=== PATIENT | male | born 1955 | race American Indian/Alaskan Native ===

== ENCOUNTER 2018-12-07 11:15 | Inpatient (IN) | payer MEDICARE ==
[2018-12-07 12:17] LABS: Basophils % (Auto) 0.4 % (0.0-1.8); Eosinophils % (Auto) 0.6 % (0.0-4.3); Hematocrit 43.3 % (35.5-45.6); Hemoglobin 14.2 gm/dl (11.8-15.2); Lymphocytes % (Auto) 13.2 % (13.4-35.0); Mean Corpuscular HGB Conc 33 % (32-34); Mean Corpuscular Volume 82 fl (84-94); Monocytes # (Auto) 0.5 K/mm3 (0.0-0.8); Monocytes % (Auto) 6.3 % (0.0-7.3); Platelet Count 262 K/mm3 (140-440); Red Blood Count 5.26 M/mm3 (3.65-5.03); Red Cell Distribution Width 14.3 % (13.2-15.2)
[2018-12-07 12:21] LABS: INR 0.87 (0.87-1.13)
[2018-12-07 12:22] LABS: Partial Thromboplastin Time 27.5 Sec. (24.2-36.6)
[2018-12-07 12:23] LABS: Calcium 6.5 mg/dL (8.4-10.2)
[2018-12-07] MEDS ORDERED: TYLENOL PO PRN (13:06)
[2018-12-07] MEDS ORDERED: PROVENTIL IH PRN (13:06)
[2018-12-07] MEDS ORDERED: ZOFRAN IV PRN (13:06)
[2018-12-07] MEDS ORDERED: SODIUM CHLORIDE FLUSH SYRINGE 10 ML IV PRN (13:06)
[2018-12-07] MEDS ORDERED: D50W (25GM) Syringe IV PRN (13:09)
--- NOTE | 2018-12-07 13:11 | History and Physical Report ---
History of Present Illness Chief complaint: High blood sugar History of present illness: 63 YO Male with ESRD on Peritoneal Dialysis, HTN, HLD, Dementia, Nicotine Dependence, and suspected Peritonitis admitted directly at the request of Dr Wyman. Pt was found to have serum glucose above 800 preoperatively. Pt vascular procedure was cancelled. Pt admitted to [facility]. Pt seen and evaluated upon arrival to his room. Pt is resting comfortably. Pt denies fever, chills, CP, Palpitations, NVD, Trauma, or recent ill contacts. Pt acknowledges abdominal pain in the area of his PD catheter. Pt found to have Hypergyycamia, ESRD, and Peritonitis. Pt admitted to [facility]. Surgery team consulted regarding peritonitis, Nephrology team consulted regarding ESRD and dialysis s/p placement of permacath by vascular service. No reported nursing events. Past History Past Medical History: diabetes, ESRD, hypertension, hyperlipidemia, other (Dementia) Past Surgical History: Other (Peritoneal dialysis catheter placement) Social history: , smoking Family history: diabetes, hypertension Medications and Allergies Allergies Allergy/AdvReac Type Severity Reaction Status Date / Time No Known Allergies Allergy Verified 12/07/18 12:08 Home Medications Medication Instructions Recorded Confirmed Last Taken Type AtorvaSTATin 40 mg PO DAILY 12/07/18 12/07/18 12/06/18 History 1 tab Calcium Carbonate [Tums] 1,000 mg PO ONCE 12/07/18 12/07/18 12/06/18 History 1 tab Carvedilol 12.5 mg PO BID 12/07/18 12/07/18 12/06/18 History 1 tab Furosemide [Lasix] 80 mg PO DAILY 12/07/18 12/07/18 12/06/18 History 1 tab Losartan [Cozaar] 100 mg PO QDAY 12/07/18 12/07/18 12/06/18 History 1 tab Minoxidil [Loniten] 10 mg PO BID 12/07/18 12/07/18 12/06/18 History 1 tab Ondansetron [Zofran TAB] 4 mg PO Q8HR PRN 12/07/18 12/07/18 12/06/18 History 1 tab Spironolactone [Aldactone] 50 mg PO QDAY 12/07/18 12/07/18 12/06/18 History 1 tab amLODIPine 10 mg PO DAILY 12/07/18 12/07/18 12/06/18 History 1 tab glipiZIDE [Glipizide] 10 mg PO BID 12/07/18 12/07/18 12/06/18 History 1 tab hydrALAZINE [Apresoline TAB] 100 mg PO TID 12/07/18 12/07/18 12/06/18 History 1 tab Active Meds: Active Medications Acetaminophen (Tylenol) 650 mg PO Q4H PRN PRN Reason: Pain MILD(1-3)/Fever >100.5/HOLLY Albuterol (Proventil) 2.5 mg IH Q4HRT PRN PRN Reason: Shortness Of Breath Dextrose (D50w (25gm) Syringe) 50 ml IV PRN PRN PRN Reason: Hypoglycemia Insulin Human Isoph/Insulin Regular (Humulin 70/30) 15 unit SUB-Q ONCE ONE Stop: 12/07/18 13:31 Insulin Human Lispro (Humalog) 0 unit SUB-Q Q6HR BRE; Protocol Miscellaneous Medication (Amlodipine) 10 mg PO DAILY [facility] Miscellaneous Medication (Atorvastatin) 40 mg PO DAILY [facility] Miscellaneous Medication (Carvedilol) 12.5 mg PO BID [facility] Ondansetron HCl (Zofran) 4 mg IV Q8H PRN PRN Reason: Nausea And Vomiting Sodium Chloride (Sodium Chloride Flush Syringe 10 Ml) 10 ml IV BID BRE Sodium Chloride (Sodium Chloride Flush Syringe 10 Ml) 10 ml IV PRN PRN PRN Reason: LINE FLUSH Review of Systems Constitutional: no weight loss, no weight gain, no chills, no sweats Ears, nose, mouth and throat: no ear pain, no tinnitis, no nose pain, no nasal discharge Cardiovascular: no chest pain, no palpitations, no syncope, no shortness of breath, no paroxysmal nocturnal dyspnea Respiratory: no cough, no excessive sputum, no shortness of breath, no congestion Gastrointestinal: abdominal pain, no nausea, no diarrhea, no change in bowel habits, no coffee ground emesis Genitourinary Male: no dysuria, no flank pain, no urinary frequency, no nocturia Rectal: no pain, no incontinence, no bleeding Musculoskeletal: no neck stiffness, no neck pain, no shooting arm pain, no arm numbness/tingling Integumentary: no rash, no redness, no wounds, no boils Neurological: no head injury, no paralysis, no numbness, no seizures Psychiatric: no anxiety, no change in sleep habits, no insomnia, no change in appetite Endocrine: polyphagia, excessive thirst, no cold intolerance, no heat intoleran ce, no excessive sweating, no weight change, no proptosis Hematologic/Lymphatic: no easy bruising, no easy bleeding Allergic/Immunologic: no urticaria, no allergic rhinitis, no wheezing, no persistent infections Exam - Constitutional Vitals: Temp Pulse Resp BP Pulse Ox 98.2 F 81 16 158/72 99 12/07/18 12:23 12/07/18 12:23 12/07/18 12:23 12/07/18 12:23 12/07/18 12:23 General appearance: Present: mild distress - EENT Eyes: Present: PERRL ENT: hearing intact, clear oral mucosa - Neck Neck: Present: supple, normal ROM - Respiratory Respiratory effort: normal Respiratory: bilateral: CTA - Cardiovascular Heart Sounds: Present: S1 & S2. Absent: rub, click - Extremities Extremities: pulses symmetrical, No edema Peripheral Pulses: within normal limits - Abdominal General gastrointestinal: Present: soft, tender, non-distended, normal bowel sounds Male genitourinary: Present: normal - Integumentary Integumentary: Present: clear, warm, dry - Musculoskeletal Musculoskeletal: gait normal, strength equal bilaterally - Psychiatric Psychiatric: appropriate mood/affect, intact judgment & insight - Neurologic Neurologic: CNII-XII intact, moves all extremities Results - Labs CBC & Chem 7: 12/07/18 12:00 12/07/18 17:31 Labs: Abnormal lab results 12/07/18 12/07/18 Range/Units 12:00 12:00 RBC 5.26 H (3.65-5.03) M/mm3 MCV 82 L (84-94) fl MCH 27 L (28-32) pg Lymph % (Auto) 13.2 L (13.4-35.0) % Lymph # 1.0 L (1.2-5.4) K/mm3 Seg Neutrophils % 79.5 H (40.0-70.0) % Sodium 125 L (137-145) mmol/L Potassium 2.8 L* (3.6-5.0) mmol/L Chloride 83.5 L (98-107) mmol/L BUN 23 H (9-20) mg/dL Creatinine 9.0 H (0.8-1.5) mg/dL Glucose 823 H* (75-100) mg/dL Calcium 6.5 L (8.4-10.2) mg/dL Assessment and Plan - Patient Problems (1) ESRD (end stage renal disease) Current Visit: Yes Status: Acute Plan to address problem: Nephrology consulted for dialysis, strict I/O, daily weight, monitor uop q shift, dialysis as per renal team. (2) HTN (hypertension) Current Visit: Yes Status: Acute Qualifiers: Hypertension type: essential hypertension Qualified Code(s): I10 - Essential (primary) hypertension Plan to address problem: Monitor BP q shift, continue medical management. (3) HLD (hyperlipidemia) Current Visit: Yes Status: Acute Qualifiers: Hyperlipidemia type: mixed hyperlipidemia Qualified Code(s): E78.2 - Mixed hyperlipidemia Plan to address problem: Low cholesterol diet, statin therapy, (4) Type 1 diabetes mellitus with hyperosmolarity without nonketotic hyperglycemic hyperosmolar coma Current Visit: Yes Status: Acute Plan to address problem: ADA diet, Higo dose sliging scale insulin, accu check, potassium repletion x1 due to hypokalemia and high dose insulin therapy. (5) Peritonitis due to infected peritoneal dialysis catheter Current Visit: Yes Status: Acute Qualifiers: Encounter type: initial encounter Qualified Code(s): T85.71XA - Infection and inflammatory reaction due to peritoneal dialysis catheter, initial encounter; K65.9 - Peritonitis, unspecified Plan to address problem: Surgery consulted, pending surgical removal of PD catheter in am pending improvement in serum glucose level, IV antibiotic therapy, CBC, serial abdominal exam. (6) Nicotine dependence Current Visit: Yes Status: Acute Qualifiers: Nicotine product type: cigarettes Plan to address problem: Smoking cessation counseling, supportive care. (7) DVT prophylaxis Current Visit: Yes Status: Acute Plan to address problem: SCD to BLE while in bed. Prophylactic heparin postoperatively
--- NOTE | 2018-12-07 13:14 | Event Note ---
Date: 12/07/18 63-year-old male with end-stage renal disease on peritoneal dialysis with low- grade peritonitis requiring transition to hemodialysis referred by Dr. Arrington. In preparation for PermCath placement today, patient's blood glucose was found to be 824. Fingerstick rechecked and was x>500. Patient usually takes NPH/reg 70/30 15 units. Provided insulin and contacted Dr. Arrington about admission for hyperglycemia and Dr. Sloan about admission for hyperglycemia. Case canceled today. Plan for PermCath placement tomorrow. Nothing by mouth except sips of water with meds for today until changed by hospitalist service given hyperglycemia. Nothing by mouth after midnight except sips of water.
--- NOTE | 2018-12-07 14:20 | Consultation ---
History of Present Illness - Reason for Consult Consult date: 12/07/18 end stage renal disease, hyponatremia, hypokalemia - History of Present Illness The patient is a 63 YO male who is well known to our service with medical history significant for DM type 2, HTN, HLD, Cognitive decline, Tobacco smoking, Anemia and ESRD on PD who was admitted from [facility] after he was found to have blood suagr in 800s. Patient is a very poor historian and unable to get any details. He denies any complaints at this time. Of note he is on treatment for Peritonitis. This is the 2nd episode of peritonitis since Jul 2018. Patient was admitted in IMCU for hyperosmolar state. He was scheduled to get Tunnel catheter but postponed to tomorrow. Past History Past Medical History: diabetes, dialysis, ESRD, hypertension, hyperlipidemia Medications and Allergies Allergies Allergy/AdvReac Type Severity Reaction Status Date / Time No Known Allergies Allergy Verified 12/07/18 12:08 Home Medications Medication Instructions Recorded Confirmed Last Taken Type AtorvaSTATin 40 mg PO DAILY 12/07/18 12/07/18 12/06/18 History 1 tab Calcium Carbonate [Tums] 1,000 mg PO ONCE 12/07/18 12/07/18 12/06/18 History 1 tab Carvedilol 12.5 mg PO BID 12/07/18 12/07/18 12/06/18 History 1 tab Furosemide [Lasix] 80 mg PO DAILY 12/07/18 12/07/18 12/06/18 History 1 tab Losartan [Cozaar] 100 mg PO QDAY 12/07/18 12/07/18 12/06/18 History 1 tab Minoxidil [Loniten] 10 mg PO BID 12/07/18 12/07/18 12/06/18 History 1 tab Ondansetron [Zofran TAB] 4 mg PO Q8HR PRN 12/07/18 12/07/18 12/06/18 History 1 tab Spironolactone [Aldactone] 50 mg PO QDAY 12/07/18 12/07/18 12/06/18 History 1 tab amLODIPine 10 mg PO DAILY 12/07/18 12/07/18 12/06/18 History 1 tab glipiZIDE [Glipizide] 10 mg PO BID 12/07/18 12/07/18 12/06/18 History 1 tab hydrALAZINE [Apresoline TAB] 100 mg PO TID 12/07/18 12/07/18 12/06/18 History 1 tab Active Meds: Active Medications Acetaminophen (Tylenol) 650 mg PO Q4H PRN PRN Reason: Pain MILD(1-3)/Fever >100.5/HOLLY Albuterol (Proventil) 2.5 mg IH Q4HRT PRN PRN Reason: Shortness Of Breath Amlodipine Besylate (Norvasc) 10 mg PO DAILY [facility] Atorvastatin Calcium (Lipitor) 40 mg PO QHS BRE Carvedilol (Coreg) 12.5 mg PO BID [facility] Dextrose (D50w (25gm) Syringe) 50 ml IV PRN PRN PRN Reason: Hypoglycemia Insulin Human Lispro (Humalog) 0 unit SUB-Q Q6HR BRE; Protocol Ondansetron HCl (Zofran) 4 mg IV Q8H PRN PRN Reason: Nausea And Vomiting Sodium Chloride (Sodium Chloride Flush Syringe 10 Ml) 10 ml IV BID [facility] Sodium Chloride (Sodium Chloride Flush Syringe 10 Ml) 10 ml IV PRN PRN PRN Reason: LINE FLUSH Review of Systems ROS unobtainable: due to mental status Exam - Vital Signs Vital signs: Vital Signs Temp Pulse Resp BP Pulse Ox 98.2 F 81 16 158/72 99 12/07/18 12:23 12/07/18 12:23 12/07/18 12:23 12/07/18 12:23 12/07/18 12:23 - General Appearance General appearance: well-developed, appears stated age, other (not in distress) EENT: ATNC, PERRL, mucous membranes dry, hearing intact, vision intact Neck: Present: neck supple, trachea midline Respiratory: Clear to Ascultation Heart: regular, S1S2, no murmurs Gastrointestinal: Present: normoactive bowel sounds, other (PD catheter noted). Absent: tenderness, distended Integumentary: no rash, warm and dry Neurologic: no focal deficit, no asterixis, confused, disoriented Musculoskeletal: Present: other (no edema) Results - Lab Results 12/07/18 12:00 12/07/18 17:31 Most recent lab results Calcium 6.5 mg/dL (8.4-10.2) L 12/07/18 12:00 Assessment and Plan 1. ESRD: Patient is in the process of switching to hemodialysis. Plan to insert tunnel catheter tomorrow by IR. Hemodialysis tomorrow. 2. Diabetic hyperosmolar state: Blood sugar is improving. Started on IV fluids. 3. FEN: Hypokalemia, replete K. Pesudohypoantremia in the setting of elevated blood sugar. 4. Peritonitis: Vanco trough is low. 1 gm of Vanco ordered. Gen. surgery consulted to remove the PD catheter. 5. Hypertension: BP is low normal. Cautious use of BP meds. 6. Tobacco smoking: Counseled multiple times.
[2018-12-07] MEDS ORDERED: NACL 0.9% 1000 ML 1,000 ML with KCL 40 MEQ IV SCH (16:00)
[2018-12-07 16:19] LABS: Calcium 6.5 mg/dL (8.4-10.2)
[2018-12-07] MEDS: NS/KCL 40MEQ 40 MEQ/1,000 ML BAG IV SCH (17:36)
[2018-12-07] MEDS: HumaLOG SUB-Q SCH (17:36)
[2018-12-07 18:15] LABS: Calcium 6.5 mg/dL (8.4-10.2)
[2018-12-07] MEDS ORDERED: NON-FORMULARY (Ondansetron [Zofran Tab] 4 MG) PO PRN (18:38)
[2018-12-07] MEDS ORDERED: K-DUR PO ONE (18:38)
[2018-12-07] MEDS ORDERED: ZOFRAN ODT PO PRN (18:50)
[2018-12-07] MEDS ORDERED: TUMS PO SCH (19:00)
--- NOTE | 2018-12-07 19:26 | Consultation ---
History of Present Illness Consult date: 12/07/18 Reason for consult: other (PD catheter removal) Requesting physician: DARÍO NAVARRO Chief complaint: abdominal pain - History of present illness History of present illness: 63yo M with ESRD presents with markedly elevated blood sugar. Primary team has assessed that patient has low-grade peritonitis. He is in need of peritoneal dialysis catheter removal. General surgery was consult. Patient reports that he has mild abdominal pain. Catheter was placed about a year ago in [place]. Past History Past Medical History: diabetes, renal failure Past Surgical History: Other (PD catheter placement) Social history: denies: smoking, alcohol abuse Medications and Allergies Allergies Allergy/AdvReac Type Severity Reaction Status Date / Time No Known Allergies Allergy Verified 12/07/18 12:08 Home Medications Medication Instructions Recorded Confirmed Last Taken Type AtorvaSTATin 40 mg PO DAILY 12/07/18 12/07/18 12/06/18 History 1 tab Calcium Carbonate [Tums] 1,000 mg PO ONCE 12/07/18 12/07/18 12/06/18 History 1 tab Carvedilol 12.5 mg PO BID 12/07/18 12/07/18 12/06/18 History 1 tab Furosemide [Lasix] 80 mg PO DAILY 12/07/18 12/07/18 12/06/18 History 1 tab Losartan [Cozaar] 100 mg PO QDAY 12/07/18 12/07/18 12/06/18 History 1 tab Minoxidil [Loniten] 10 mg PO BID 12/07/18 12/07/18 12/06/18 History 1 tab Ondansetron [Zofran TAB] 4 mg PO Q8HR PRN 12/07/18 12/07/18 12/06/18 History 1 tab Spironolactone [Aldactone] 50 mg PO QDAY 12/07/18 12/07/18 12/06/18 History 1 tab amLODIPine 10 mg PO DAILY 12/07/18 12/07/18 12/06/18 History 1 tab glipiZIDE [Glipizide] 10 mg PO BID 12/07/18 12/07/18 12/06/18 History 1 tab hydrALAZINE [Apresoline TAB] 100 mg PO TID 12/07/18 12/07/18 12/06/18 History 1 tab Active Meds: Active Medications Acetaminophen (Tylenol) 650 mg PO Q4H PRN PRN Reason: Pain MILD(1-3)/Fever >100.5/HOLLY Albuterol (Proventil) 2.5 mg IH Q4HRT PRN PRN Reason: Shortness Of Breath Amlodipine Besylate (Norvasc) 10 mg PO DAILY [facility] Atorvastatin Calcium (Lipitor) 40 mg PO QHS [facility] Calcium Carbonate/Glycine (Tums) 1,000 mg PO ONCE [facility] Carvedilol (Coreg) 12.5 mg PO BID [facility] Dextrose (D50w (25gm) Syringe) 50 ml IV PRN PRN PRN Reason: Hypoglycemia Furosemide (Lasix) 80 mg PO DAILY@0600 [facility] Hydralazine HCl (Apresoline) 100 mg PO TID [facility] Potassium Chloride/Sodium Chloride (Ns/Kcl 40meq) 40 meq in 1,000 mls @ 75 mls/hr IV DIRECT BRE Last Admin: 12/07/18 17:36 Dose: 75 mls/hr Documented by: Insulin Human Lispro (Humalog) 0 unit SUB-Q Q6HR [facility]; Protocol Last Admin: 12/07/18 17:36 Dose: 15 unit Documented by: Losartan Potassium (Cozaar) 100 mg PO QDAY [facility] Minoxidil (Loniten) 10 mg PO BID [facility] Ondansetron HCl (Zofran) 4 mg IV Q8H PRN PRN Reason: Nausea And Vomiting Ondansetron HCl (Zofran Odt) 4 mg PO Q8HR PRN PRN Reason: Nausea And Vomiting Sodium Chloride (Sodium Chloride Flush Syringe 10 Ml) 10 ml IV BID [facility] Sodium Chloride (Sodium Chloride Flush Syringe 10 Ml) 10 ml IV PRN PRN PRN Reason: LINE FLUSH Spironolactone (Aldactone) 50 mg PO QDAY [facility] Review of Systems - Constitutional no fever, no chills - Cardiovascular no chest pain - Respiratory no cough - Gastrointestinal abdominal pain, no nausea, no vomiting - Integumentary no rash, no pruritis, no wounds Exam Vital Signs Temp Pulse Resp BP Pulse Ox 98.2 F 81 16 158/72 99 12/07/18 12:23 12/07/18 12:23 12/07/18 12:23 12/07/18 12:23 12/07/18 12:23 - General physical appearance Positive: no distress, no pain - Respiratory Positive: normal expansion, normal respiratory effort, clear to auscultation - Cardiovascular Rhythm: regular - Abdomen Abdomen: Present: soft, other (Catheter on left side. Tract is palpable. Incisions are well healed. ). Absent: tender, distended - Integumentary no rash, no growths, no abnormal pigmentation - Neurologic Neurologic: alert and oriented to time, place and person - Psychiatric Psychiatric: appropriate mood/affect, intact judgment & insight Results - Labs 12/07/18 12:00 12/07/18 17:31 Abnormal lab results 12/07/18 12/07/18 12/07/18 Range/Units 12:00 12:00 14:41 RBC 5.26 H (3.65-5.03) M/mm3 MCV 82 L (84-94) fl MCH 27 L (28-32) pg Lymph % (Auto) 13.2 L (13.4-35.0) % Lymph # 1.0 L (1.2-5.4) K/mm3 Seg Neutrophils % 79.5 H (40.0-70.0) % Sodium 125 L 125 L (137-145) mmol/L Potassium 2.8 L* 2.5 L* (3.6-5.0) mmol/L Chloride 83.5 L 85.4 L (98-107) mmol/L BUN 23 H 24 H (9-20) mg/dL Creatinine 9.0 H 9.4 H (0.8-1.5) mg/dL Glucose 823 H* 792 H* (75-100) mg/dL POC Glucose (70-105) Calcium 6.5 L 6.5 L (8.4-10.2) mg/dL 12/07/18 12/07/18 12/07/18 Range/Units 14:46 17:05 17:31 RBC (3.65-5.03) M/mm3 MCV (84-94) fl MCH (28-32) pg Lymph % (Auto) (13.4-35.0) % Lymph # (1.2-5.4) K/mm3 Seg Neutrophils % (40.0-70.0) % Sodium 125 L (137-145) mmol/L Potassium 2.7 L* (3.6-5.0) mmol/L Chloride 85.9 L (98-107) mmol/L BUN 26 H (9-20) mg/dL Creatinine 9.7 H (0.8-1.5) mg/dL Glucose 535 H* (75-100) mg/dL POC Glucose > 500 H 480 H (70-105) Calcium 6.5 L (8.4-10.2) mg/dL Diabetes panel 12/07/18 12/07/18 12/07/18 Range/Units 12:00 14:41 17:31 Sodium 125 L 125 L 125 L (137-145) mmol/L Potassium 2.8 L* 2.5 L* 2.7 L* (3.6-5.0) mmol/L Chloride 83.5 L 85.4 L 85.9 L (98-107) mmol/L Carbon Dioxide 28 26 23 (22-30) mmol/L BUN 23 H 24 H 26 H (9-20) mg/dL Creatinine 9.0 H 9.4 H 9.7 H (0.8-1.5) mg/dL Glucose 823 H* 792 H* 535 H* (75-100) mg/dL Calcium 6.5 L 6.5 L 6.5 L (8.4-10.2) mg/dL Calcium panel 12/07/18 12/07/18 12/07/18 Range/Units 12:00 14:41 17:31 Calcium 6.5 L 6.5 L 6.5 L (8.4-10.2) mg/dL Pituitary panel 12/07/18 12/07/18 12/07/18 Range/Units 12:00 14:41 17:31 Sodium 125 L 125 L 125 L (137-145) mmol/L Potassium 2.8 L* 2.5 L* 2.7 L* (3.6-5.0) mmol/L Chloride 83.5 L 85.4 L 85.9 L (98-107) mmol/L Carbon Dioxide 28 26 23 (22-30) mmol/L BUN 23 H 24 H 26 H (9-20) mg/dL Creatinine 9.0 H 9.4 H 9.7 H (0.8-1.5) mg/dL Glucose 823 H* 792 H* 535 H* (75-100) mg/dL Calcium 6.5 L 6.5 L 6.5 L (8.4-10.2) mg/dL Adrenal panel 12/07/18 12/07/18 12/07/18 Range/Units 12:00 14:41 17:31 Sodium 125 L 125 L 125 L (137-145) mmol/L Potassium 2.8 L* 2.5 L* 2.7 L* (3.6-5.0) mmol/L Chloride 83.5 L 85.4 L 85.9 L (98-107) mmol/L Carbon Dioxide 28 26 23 (22-30) mmol/L BUN 23 H 24 H 26 H (9-20) mg/dL Creatinine 9.0 H 9.4 H 9.7 H (0.8-1.5) mg/dL Glucose 823 H* 792 H* 535 H* (75-100) mg/dL Calcium 6.5 L 6.5 L 6.5 L (8.4-10.2) mg/dL Assessment and Plan - Patient Problems (1) Peritonitis due to infected peritoneal dialysis catheter Current Visit: Yes Status: Acute Qualifiers: Encounter type: initial encounter Qualified Code(s): T85.71XA - Infection and inflammatory reaction due to peritoneal dialysis catheter, initial encounter; K65.9 - Peritonitis, unspecified Plan to address problem: Patient is stable. 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 Patient in agreement. Procedure, risks, benefits were discussed. Patient has given verbal consent. I will get written consent tomorrow. I will try to add him onto the schedule for tomorrow for catheter removal. Please call with any questions Time=30min
[2018-12-07] MEDS ORDERED: APRESOLINE PO SCH (20:00)
[2018-12-07] MEDS: SODIUM CHLORIDE FLUSH SYRINGE 10 ML IV SCH (21:04)
[2018-12-07] MEDS: COREG PO SCH (21:04)
[2018-12-07] MEDS ORDERED: LONITEN PO SCH (22:00)
[2018-12-07] MEDS ORDERED: VANCOMYCIN/NS 1 GM/250 ML 1 GM/250 ML BAG IV ONE (22:00)
[2018-12-07] MEDS ORDERED: NON-FORMULARY (Carvedilol 12.5 MG) PO SCH (22:00)
[2018-12-08] MEDS: HumaLOG SUB-Q SCH ×4 (00:27→20:13)
[2018-12-08] MEDS: LASIX PO SCH (05:00)
[2018-12-08 06:13] LABS: Calcium 6.7 mg/dL (8.4-10.2)
[2018-12-08] MEDS ORDERED: K-DUR PO ONE (06:49)
[2018-12-08] MEDS ORDERED: HEPARIN/NS 5000 UNIT/500ML(CATH LAB) 500 ML IR ONE (08:13)
[2018-12-08] MEDS ORDERED: HEPARIN 10,000 UNITS/10 ML ONE (08:14)
[2018-12-08] MEDS: XYLOCAINE 2% INFILTRATI ONE ×3 (08:44→08:52)
[2018-12-08] MEDS: SUBLIMAZE ONE ×2 (08:44→08:48)
[2018-12-08] MEDS: VERSED ONE ×2 (08:44→08:48)
--- NOTE | 2018-12-08 09:04 | Operative Report ---
Operative Report Operative Report: Exam: Ultrasound and fluoroscopic guided placement of tunneled hemodialysis catheter Clinical indication: End-stage renal disease requiring dialysis access, hypokalemia Date: 12/08/2018 Procedure: Following an explanation of the risks, benefits and alternatives; written informed consent was obtained. The patient was brought to the angiographic suite and placed in supine position on the examination table. Initial ultrasound evaluation of his neck demonstrated a patent right internal jugular vein. The patient's right neck and chest wall were prepped and draped in the usual sterile fashion. 1% lidocaine was used for anesthesia. Under ultrasound guidance, the right internal jugular vein was cannulated with a 7 cm 18-gauge needle. A 0.035 guidewire was advanced under fluoroscopy to the IVC to document intravenous positioning and for anchoring. The needle was removed. An appropriate catheter exit site was chosen along the lateral right chest wall. 1% lidocaine was used for anesthesia at the catheter exit site and along the tunnel tract. A 23 cm tunneled hemodialysis catheter was then tunneled antegrade from the catheter exit site to the venotomy site. Following serial dilation over the guidewire under fluoroscopy, a 16 Jordanian peel-away sheath was placed over the guidewire under fluoroscopy. The guidewire and trocar were removed and the catheter inserted to the peel-away sheath. The peel-away sheath was removed and the catheter tip position in the proximal right atrium. Both ports flushed and aspirated easily and were then locked with appropriate points of heparin. The venotomy was closed using 3-0 Vicryl suture and Dermabond. 3-0 Vicryl suture and Dermabond were also applied to the catheter exit site. Sterile dressings were then applied. The patient tolerated the procedure well. There were no immediate post procedure complications. Conscious sedation was performed under the guidance of radiologic nursing. Continuous cardiopulmonary monitoring was utilized. Impression: Ultrasound and fluoroscopic guided placement of tunneled hemodialysis catheter via the right internal jugular vein.
[2018-12-08] MEDS ORDERED: NON-FORMULARY (Furosemide [Lasix] 80 MG) PO SCH (10:00)
[2018-12-08] MEDS ORDERED: COZAAR PO SCH (10:00)
[2018-12-08] MEDS ORDERED: NON-FORMULARY (Atorvastatin 40 MG) PO SCH (10:00)
[2018-12-08] MEDS ORDERED: NON-FORMULARY (Losartan [Cozaar] 100 MG) PO SCH (10:00)
[2018-12-08] MEDS ORDERED: NON-FORMULARY (Amlodipine 10 MG) PO SCH (10:00)
[2018-12-08] MEDS ORDERED: NORVASC PO SCH (10:00)
[2018-12-08] MEDS ORDERED: MAGNESIUM SULFATE 2GM/50ML 2 GM/50 ML BAG IV ONE (10:30)
[2018-12-08] MEDS: COREG PO SCH ×2 (10:49→21:53)
[2018-12-08] MEDS: ALDACTONE PO SCH (10:49)
[2018-12-08] MEDS: TUMS PO SCH (10:50)
[2018-12-08] MEDS: SODIUM CHLORIDE FLUSH SYRINGE 10 ML IV SCH ×2 (10:50→21:53)
[2018-12-08] MEDS: HEPARIN SUB-Q SCH ×2 (10:50→21:53)
[2018-12-08] MEDS ORDERED: NACL 0.9% 100 ML IV PRN (11:35)
[2018-12-08] MEDS ORDERED: HEPARIN 10,000 UNITS/10 ML IV PRN ×2 (11:35)
--- NOTE | 2018-12-08 11:45 | Anesthesia Day of Surgery ---
Anesthesia Day of Surgery - Day of Surgery Patient Examined: Yes Patient H&P Reviewed: Yes Patient is NPO: Yes
--- NOTE | 2018-12-08 11:48 | Anesthesia Consultation ---
Anesthesia Consult and Med Hx Date of service: 12/08/18 - Airway Anesthetic Teeth Evaluation: Good ROM Head & Neck: Adequate Mental/Hyoid Distance: Adequate Mallampati Class: Class II Intubation Access Assessment: Good - Pre-Operative Health Status ASA Pre-Surgery Classification: ASA3, Emergency Proposed Anesthetic Plan: MAC - Pulmonary Hx Smoking: Yes Hx Asthma: No COPD: No Hx Pneumonia: No Hx Sleep Apnea: No - Cardiovascular System Hx Hypertension: Yes Hx Heart Attack/AMI: No Hx Angina: No - Central Nervous System CVA: No Hx Psychiatric Problems: No (Cognitive decline; early dementia) - Endocrine Hx Renal Disease: Yes Hx End Stage Renal Disease: Yes (currently doing peritoneal dialysis-has peritonitis) Hx Insulin Dependent Diabetes: Yes - Other Systems Hx Cancer: No
[2018-12-08] MEDS ORDERED: NACL 0.9% 1000 ML 1,000 ML IV SCH (12:00)
[2018-12-08] MEDS ORDERED: SUBLIMAZE IV PRN (12:00)
[2018-12-08] MEDS ORDERED: XYLOCAINE 1%/ EPI 1:100,000 INFILTRATI ONE (12:08)
[2018-12-08] MEDS ORDERED: MARCAINE 0.5% INFILTRATI ONE ×2 (12:08→12:19)
[2018-12-08] MEDS ORDERED: NACL 0.9% 1000 ML 1,000 ML ONE (12:17)
[2018-12-08] MEDS ORDERED: XYLOCAINE/EPI 1% 1:50,000 (OR) INFILTRATI ONE (12:19)
[2018-12-08] MEDS ORDERED: NACL 0.9% IR ONE (12:19)
[2018-12-08] MEDS ORDERED: DILAUDID ONE (12:29)
[2018-12-08] MEDS ORDERED: DIPRIVAN 10 MG/ML IV ONE (12:29)
[2018-12-08] MEDS ORDERED: XYLOCAINE MPF 2% ONE (12:29)
[2018-12-08] MEDS ORDERED: VERSED ONE (12:29)
[2018-12-08] MEDS ORDERED: ANCEF ONE (12:36)
--- NOTE | 2018-12-08 12:53 | Progress Note ---
Assessment and Plan Assessment and plan: Patient is a 63 yo man with a history of ESRD on Peritoneal Dialysis, HTN, HLD, Dementia and Nicotine Dependence who was directly admitted at the request of Dr. Wyman. He was suspected of having Peritonitis. He was found to have serum glucose above 800 pre-operatively. Pt vascular procedure was cancelled. Pt admitted to [facility]. -Abdominal Peritionitis; d/w Dr. Pederson and he will order abx for HD today, GS consulted of PD line removal -Hypokalemia: replace gently due to ESRD -Hypomagnesemia: iv mag replacement, monitor daily -ESRD: change from PD to HD, renal to manage -Type 2 diabetes mellitus with HONK: treat with insulin, monitor accucheck -Hypertension; low salt diet -Dyslipidemia; statin -Nicotine dependence: counseling department chair on stopping -DVT prophylaxis reviewed History Interval history: Patient was seen and examined. Follow-up on current diagnosis of PD infection. Overnight uneventful. Patient denies any chest pain, shortness breath, nausea/vomiting or severe headaches. Imaging, nursing note, chart, labs and old chart reviewed. Discussed with patient. Hospitalist Physical - Physical exam Narrative exam: Gen: WDWN, NAD, Awake, Alert, Orientated HEENT: NCAT, EOMI, PERRL, OP Clear Neck: supple, no adenopathy, no thyromegaly, no JVD CVS/Heart: RRR, normal S1S2, pulses present bilaterally Chest/Lungs: CTA B, Symmetrical chest expansion, good air entry bilaterally GI/Abdomen: soft, NTND, good bowel sounds, no guarding or rebound, left PD catheter in place /Bladder: no suprapubic tenderness, no CVA or paraspinal tenderness Extermity/Skin: no c/c/e, no obvious rash, right cw perm-cath in place MSK: FROM x 4 Neuro: CN 2-12 grossly intact, no new focal deficits Psych: calm - Constitutional Vitals: Temp Pulse Resp BP Pulse Ox 98.1 F 78 18 145/89 96 12/08/18 11:25 12/08/18 11:25 12/08/18 11:25 12/08/18 11:25 12/08/18 11:25 General appearance: Absent: mild distress Results - Labs CBC & Chem 7: 12/07/18 12:00 12/08/18 04:57 Labs: Laboratory Last Values WBC 7.5 K/mm3 (4.5-11.0) 12/07/18 12:00 RBC 5.26 M/mm3 (3.65-5.03) H 12/07/18 12:00 Hgb 14.2 gm/dl (11.8-15.2) 12/07/18 12:00 Hct 43.3 % (35.5-45.6) 12/07/18 12:00 MCV 82 fl (84-94) L 12/07/18 12:00 MCH 27 pg (28-32) L 12/07/18 12:00 MCHC 33 % (32-34) 12/07/18 12:00 RDW 14.3 % (13.2-15.2) 12/07/18 12:00 Plt Count 262 K/mm3 (140-440) 12/07/18 12:00 Lymph % (Auto) 13.2 % (13.4-35.0) L 12/07/18 12:00 [place] % (Auto) 6.3 % (0.0-7.3) 12/07/18 12:00 Eos % (Auto) 0.6 % (0.0-4.3) 12/07/18 12:00 Baso % (Auto) 0.4 % (0.0-1.8) 12/07/18 12:00 Lymph # 1.0 K/mm3 (1.2-5.4) L 12/07/18 12:00 [place] # 0.5 K/mm3 (0.0-0.8) 12/07/18 12:00 Eos # 0.0 K/mm3 (0.0-0.4) 12/07/18 12:00 Baso # 0.0 K/mm3 (0.0-0.1) 12/07/18 12:00 Seg Neutrophils % 79.5 % (40.0-70.0) H 12/07/18 12:00 Seg Neutrophils # 5.9 K/mm3 (1.8-7.7) 12/07/18 12:00 PT 12.4 Sec. (12.2-14.9) 12/07/18 12:00 INR 0.87 (0.87-1.13) 12/07/18 12:00 APTT 27.5 Sec. (24.2-36.6) 12/07/18 12:00 Sodium 133 mmol/L (137-145) L D 12/08/18 04:57 Potassium 2.7 mmol/L (3.6-5.0) L* 12/08/18 04:57 Chloride 92.7 mmol/L (98-107) L 12/08/18 04:57 Carbon Dioxide 25 mmol/L (22-30) 12/08/18 04:57 Anion Gap 18 mmol/L 12/08/18 04:57 BUN 26 mg/dL (9-20) H 12/08/18 04:57 Creatinine 10.1 mg/dL (0.8-1.5) H 12/08/18 04:57 Estimated GFR 6 ml/min 12/08/18 04:57 BUN/Creatinine Ratio 3 % 12/08/18 04:57 Glucose 141 mg/dL (75-100) H 12/08/18 04:57 POC Glucose 142 (70-105) H 12/08/18 12:11 Calcium 6.7 mg/dL (8.4-10.2) L 12/08/18 04:57 Phosphorus 2.80 mg/dL (2.5-4.5) 12/08/18 04:57 Magnesium 1.10 mg/dL (1.7-2.3) L 12/08/18 04:57 Vancomycin Trough 5.8 ug/mL (5.0-20.0) 12/07/18 17:31 Active Medications - Current Medications Current Medications: Generic Name Dose Route Start Last Admin Trade Name Damionq PRN Reason Stop Dose Admin Acetaminophen 650 mg 12/07/18 13:06 12/07/18 22:50 Tylenol PO 650 mg Q4H PRN Administration Pain MILD(1-3)/Fever >100.5/HOLLY Albuterol 2.5 mg 12/07/18 13:06 Proventil IH Q4HRT PRN Shortness Of Breath Amlodipine Besylate 10 mg 12/08/18 10:00 12/08/18 10:50 Norvasc PO Not Given DAILY BRE Atorvastatin Calcium 40 mg 12/07/18 22:00 12/07/18 21:04 Lipitor PO 40 mg QHS BRE Administration Calcium Carbonate/Glycine 1,000 mg 12/08/18 10:00 12/08/18 10:50 Tums PO Not Given DAILY [facility] Carvedilol 12.5 mg 12/07/18 22:00 12/08/18 10:49 Coreg PO Not Given BID [facility] Dextrose 50 ml 12/07/18 13:09 12/08/18 00:22 D50w (25gm) Syringe IV 50 ml PRN PRN Administration Hypoglycemia Fentanyl 50 mcg 12/08/18 12:00 Sublimaze IV 12/08/18 16:00 Q5MIN PRN Pain , Severe (7-10) Furosemide 80 mg 12/08/18 06:00 12/08/18 05:00 Lasix PO 80 mg DAILY@0600 BRE Administration Heparin Sodium (Porcine) 5,000 unit 12/08/18 10:00 12/08/18 10:50 Heparin SUB-Q Not Given Q12HR [facility] Heparin Sodium (Porcine) 2,000 unit 12/08/18 11:35 Heparin 10,000 Units/10 Ml IV STUART PRN hemodialysis Heparin Sodium (Porcine) 1,000 unit 12/08/18 11:35 Heparin 10,000 Units/10 Ml IV STUART PRN hemodialysis Potassium Chloride/Sodium Chloride 40 meq in 1,000 mls @ 75 mls/hr 12/07/18 16:00 12/07/18 17:36 Ns/Kcl 40meq IV 75 mls/hr DIRECT BRE Administration Sodium Chloride 100 mls @ 999 mls/hr 12/08/18 11:35 Nacl 0.9% IV STUART PRN Hypotension Sodium Chloride 1,000 mls @ 42 mls/hr 12/08/18 12:00 12/08/18 12:19 Nacl 0.9% 1000 Ml IV 42 mls/hr DIRECT BRE Administration Insulin Human Lispro 0 unit 12/07/18 18:00 12/08/18 05:32 Humalog SUB-Q Not Given Q6HR [facility] Protocol Ondansetron HCl 4 mg 12/07/18 13:06 Zofran IV Q8H PRN Nausea And Vomiting Ondansetron HCl 4 mg 12/07/18 18:50 Zofran Odt PO Q8HR PRN Nausea And Vomiting Sodium Chloride 10 ml 12/07/18 22:00 12/08/18 10:50 Sodium Chloride Flush Syringe 10 Ml IV Not Given BID [facility] Sodium Chloride 10 ml 12/07/18 13:06 Sodium Chloride Flush Syringe 10 Ml IV PRN PRN LINE FLUSH Spironolactone 50 mg 12/08/18 10:00 12/08/18 10:49 Aldactone PO Not Given QDAY BRE
[2018-12-08] MEDS ORDERED: VANCOMYCIN/NS 1 GM/250 ML 1 GM/250 ML BAG IV ONE (17:15)
--- NOTE | 2018-12-08 17:18 | Progress Note ---
Assessment and Plan 1. ESRD: S/p R IJ tunnel catheter. Hemodialysis today. 2. Diabetic hyperosmolar state: Blood sugar is better. 3. FEN: Hypokalemia, replete K. 4. Peritonitis: Continue Vancomycin. Gen. surgery to remove the PD catheter. 5. Hypertension: BP is low normal. Cautious use of BP meds. 6. Tobacco smoking: Counseled multiple times. Subjective Date of service: 12/08/18 Interval history: Patient was seen and examined at the bedside. Doing better. Objective - Vital Signs Vital signs: Vital Signs - 12hr 12/08/18 12/08/18 12/08/18 05:20 05:30 05:40 Temperature Pulse Rate 71 71 72 Pulse Rate [ From Monitor] Respiratory 13 13 12 Rate Blood Pressure 104/50 104/50 104/50 O2 Sat by Pulse 99 99 98 Oximetry 12/08/18 12/08/18 12/08/18 05:50 06:00 06:10 Temperature Pulse Rate 71 71 73 Pulse Rate [ From Monitor] Respiratory 13 14 20 Rate Blood Pressure 104/50 104/50 104/50 O2 Sat by Pulse 100 99 99 Oximetry 12/08/18 12/08/18 12/08/18 06:20 06:30 06:40 Temperature Pulse Rate 71 72 71 Pulse Rate [ From Monitor] Respiratory 15 16 13 Rate Blood Pressure 104/50 104/50 104/50 O2 Sat by Pulse 100 99 99 Oximetry 12/08/18 12/08/18 12/08/18 06:50 07:00 07:10 Temperature Pulse Rate 71 74 72 Pulse Rate [ From Monitor] Respiratory 17 15 12 Rate Blood Pressure 104/50 104/50 104/50 O2 Sat by Pulse 100 100 100 Oximetry 12/08/18 12/08/18 12/08/18 07:20 07:30 07:40 Temperature Pulse Rate 73 73 77 Pulse Rate [ From Monitor] Respiratory 12 13 16 Rate Blood Pressure 104/50 104/50 104/50 O2 Sat by Pulse 100 97 100 Oximetry 12/08/18 12/08/18 12/08/18 08:00 08:16 09:40 Temperature 98.2 F Pulse Rate Pulse Rate [ 71 From Monitor] Respiratory 15 Rate Blood Pressure O2 Sat by Pulse 99 100 98 Oximetry 12/08/18 12/08/18 12/08/18 09:50 10:00 10:10 Temperature Pulse Rate 68 68 68 Pulse Rate [ From Monitor] Respiratory 13 11 L 12 Rate Blood Pressure 96/45 102/51 102/51 O2 Sat by Pulse 99 100 100 Oximetry 12/08/18 12/08/18 12/08/18 10:20 10:30 10:40 Temperature Pulse Rate 72 68 70 Pulse Rate [ From Monitor] Respiratory 13 13 11 L Rate Blood Pressure 102/51 102/51 102/51 O2 Sat by Pulse 100 100 100 Oximetry 12/08/18 12/08/18 12/08/18 10:49 10:50 11:00 Temperature Pulse Rate 67 68 Pulse Rate [ From Monitor] Respiratory 13 13 Rate Blood Pressure 102/51 102/51 98/45 O2 Sat by Pulse 100 98 Oximetry 12/08/18 12/08/18 12/08/18 11:25 12:00 13:10 Temperature 98.2 F 97.3 F L Pulse Rate 68 65 Pulse Rate [ 71 From Monitor] Respiratory 16 15 16 Rate Blood Pressure 118/64 123/60 O2 Sat by Pulse 97 99 99 Oximetry 12/08/18 12/08/18 12/08/18 13:15 13:20 13:25 Temperature Pulse Rate 79 65 66 Pulse Rate [ From Monitor] Respiratory 13 15 11 L Rate Blood Pressure 120/65 120/60 122/61 O2 Sat by Pulse 100 98 97 Oximetry 12/08/18 12/08/18 12/08/18 13:30 13:50 14:00 Temperature 98.2 F Pulse Rate 68 71 68 Pulse Rate [ From Monitor] Respiratory 13 16 Rate Blood Pressure 121/59 122/62 118/64 O2 Sat by Pulse 97 Oximetry 12/08/18 12/08/18 12/08/18 14:15 14:30 14:45 Temperature Pulse Rate 66 69 72 Pulse Rate [ From Monitor] Respiratory Rate Blood Pressure 122/62 116/59 110/56 O2 Sat by Pulse Oximetry 12/08/18 12/08/18 12/08/18 15:00 15:15 15:30 Temperature Pulse Rate 69 70 66 Pulse Rate [ From Monitor] Respiratory Rate Blood Pressure 114/55 121/56 117/57 O2 Sat by Pulse Oximetry 12/08/18 15:45 Temperature Pulse Rate 66 Pulse Rate [ From Monitor] Respiratory Rate Blood Pressure 126/56 O2 Sat by Pulse Oximetry - General Appearance General appearance: well-developed, well-nourished, appears stated age, other (not in distress, R IJ tunnel catheter) EENT: ATNC, PERRL, hearing intact, vision intact Neck: supple Respiratory: Present: Clear to Ascultation Cardiology: regular, S1S2, no murmurs Gastrointestinal: normoactive bowel sounds, no tenderness, no distended, other (PD catheter) Integumentary: no rash, warm and dry Neurologic: no focal deficit, no asterixis, confused, disoriented Musculoskeletal: other (no edema) - Lab 12/09/18 07:53 12/09/18 07:53 Most recent lab results Calcium 6.7 mg/dL (8.4-10.2) L 12/08/18 04:57 Phosphorus 2.80 mg/dL (2.5-4.5) 12/08/18 04:57 Magnesium 1.10 mg/dL (1.7-2.3) L 12/08/18 04:57 Medications & Allergies - Medications Allergies/Adverse Reactions: Allergies No Known Allergies Allergy (Verified 12/07/18 12:08) Home Medications: Home Medications Medication Instructions Recorded Confirmed Last Taken Type AtorvaSTATin 40 mg PO DAILY 12/07/18 12/07/18 12/06/18 History 1 tab Calcium Carbonate [Tums] 1,000 mg PO ONCE 12/07/18 12/07/18 12/06/18 History 1 tab Carvedilol 12.5 mg PO BID 12/07/18 12/07/18 12/06/18 History 1 tab Furosemide [Lasix] 80 mg PO DAILY 12/07/18 12/07/18 12/06/18 History 1 tab Losartan [Cozaar] 100 mg PO QDAY 12/07/18 12/07/18 12/06/18 History 1 tab Minoxidil [Loniten] 10 mg PO BID 12/07/18 12/07/18 12/06/18 History 1 tab Ondansetron [Zofran TAB] 4 mg PO Q8HR PRN 12/07/18 12/07/18 12/06/18 History 1 tab Spironolactone [Aldactone] 50 mg PO QDAY 12/07/18 12/07/18 12/06/18 History 1 tab amLODIPine 10 mg PO DAILY 12/07/18 12/07/18 12/06/18 History 1 tab glipiZIDE [Glipizide] 10 mg PO BID 12/07/18 12/07/18 12/06/18 History 1 tab hydrALAZINE [Apresoline TAB] 100 mg PO TID 12/07/18 12/07/18 12/06/18 History 1 tab Active Medications: Generic Name Dose Route Start Last Admin Trade Name Freq PRN Reason Stop Dose Admin Acetaminophen 650 mg 12/07/18 13:06 12/07/18 22:50 Tylenol PO 650 mg Q4H PRN Administration Pain MILD(1-3)/Fever >100.5/HOLLY Albuterol 2.5 mg 12/07/18 13:06 Proventil IH Q4HRT PRN Shortness Of Breath Amlodipine Besylate 10 mg 12/08/18 10:00 12/08/18 10:50 Norvasc PO Not Given DAILY BRE Atorvastatin Calcium 40 mg 12/07/18 22:00 12/07/18 21:04 Lipitor PO 40 mg QHS BRE Administration Calcium Carbonate/Glycine 1,000 mg 12/08/18 10:00 12/08/18 10:50 Tums PO Not Given DAILY [facility] Carvedilol 12.5 mg 12/07/18 22:00 12/08/18 10:49 Coreg PO Not Given BID BRE Dextrose 50 ml 12/07/18 13:09 12/08/18 00:22 D50w (25gm) Syringe IV 50 ml PRN PRN Administration Hypoglycemia Furosemide 80 mg 12/08/18 06:00 12/08/18 05:00 Lasix PO 80 mg DAILY@0600 BRE Administration Heparin Sodium (Porcine) 5,000 unit 12/08/18 10:00 12/08/18 10:50 Heparin SUB-Q Not Given Q12HR [facility] Heparin Sodium (Porcine) 2,000 unit 12/08/18 11:35 Heparin 10,000 Units/10 Ml IV STUART PRN hemodialysis Heparin Sodium (Porcine) 1,000 unit 12/08/18 11:35 Heparin 10,000 Units/10 Ml IV STUART PRN hemodialysis Potassium Chloride/Sodium Chloride 40 meq in 1,000 mls @ 75 mls/hr 12/07/18 16:00 12/07/18 17:36 Ns/Kcl 40meq IV 75 mls/hr DIRECT BRE Administration Sodium Chloride 100 mls @ 999 mls/hr 12/08/18 11:35 Nacl 0.9% IV STUART PRN Hypotension Sodium Chloride 1,000 mls @ 42 mls/hr 12/08/18 12:00 12/08/18 12:19 Nacl 0.9% 1000 Ml IV 42 mls/hr DIRECT BRE Administration Vancomycin HCl 1 gm in 250 mls @ 167.007 mls/hr 12/08/18 17:15 Vancomycin/Ns 1 Gm/250 Ml IV 12/08/18 18:44 ONCE ONE Protocol Insulin Human Lispro 0 unit 12/07/18 18:00 12/08/18 15:49 Humalog SUB-Q Not Given Q6HR [facility] Protocol Ondansetron HCl 4 mg 12/07/18 13:06 Zofran IV Q8H PRN Nausea And Vomiting Ondansetron HCl 4 mg 12/07/18 18:50 Zofran Odt PO Q8HR PRN Nausea And Vomiting Sodium Chloride 10 ml 12/07/18 22:00 12/08/18 10:50 Sodium Chloride Flush Syringe 10 Ml IV Not Given BID BRE Sodium Chloride 10 ml 12/07/18 13:06 Sodium Chloride Flush Syringe 10 Ml IV PRN PRN LINE FLUSH Spironolactone 50 mg 12/08/18 10:00 12/08/18 10:49 Aldactone PO Not Given QDAY BRE
--- NOTE | 2018-12-08 21:00 | Post Operative Note ---
Date of procedure: 12/08/18 (dictation:[id number]) Pre-op diagnosis: peritonitis Post-op diagnosis: same Findings: normal appearance of catheter Procedure: Removal of tunneled PD catheter Anesthesia: MAC Surgeon: KARINA ROSARIO Estimated blood loss: minimal Pathology: list (portion of PD catheter) Specimen disposition: to lab Condition: stable Disposition: PACU
[2018-12-08] MEDS: KCL 10MEQ/100ML 10 MEQ/100 ML BAG IV SCH ×3 (21:49→22:58)
--- NOTE | 2018-12-08 21:49 | Operative Report ---
PREOPERATIVE DIAGNOSIS: Low-grade peritonitis. POSTOPERATIVE DIAGNOSIS: Low-grade peritonitis. PROCEDURE: Removal of tunneled peritoneal dialysis catheter. ATTENDING PHYSICIAN: Justin Schafer MD ANESTHESIA: Local MAC. ESTIMATED BLOOD LOSS: Minimal. FLUIDS: 200 mL. FINDINGS: Normal appearance of catheter. SPECIMEN: Catheter of which the distal end was sent for culture. COMPLICATIONS: Stable, transferred to Recovery Room. INDICATIONS: This is a 63-year-old male, who was admitted after attempted PermCath placement with severe hyperglycemia. The patient was assessed by the primary team to have low-grade peritonitis and a need for PD catheter removal. General Surgery was consulted. Procedure, risks, benefits were explained to the patient. Risks included but were not limited to infection, bleeding, pain, injury to surrounding structures, possible need for further procedures in the future. The patient understood and consented. OPERATIVE NOTE: The patient was brought to the operating room and placed on the table in supine position. After adequate sedation was established, the patient was prepped and draped in the usual sterile fashion. Antibiotics have been administered prior to start of the case. SCDs were in place. I began by injecting local into the exit site where the first cuff was located. Then, with blunt dissection and eventually with electrocautery, we the surrounding tissue from the cuff, completely freed the catheter from the surrounding fibrous tissue. I then palpated approximately where the next cuff was, injected the skin above it, made a transverse incision, dissected down to that area. Using again blunt dissection and eventually electrocautery, we the second cuff. The catheter was completely intact. We removed the intraperitoneal portion and then excised that portion of the catheter and sent it for culture. The fluid from the peritoneum that was coming up looked completely normal. We then removed the remainder of the catheter from the subcutaneous tissue as the opening in the peritoneum was very small similar to a 5 mm port that we would not normally close. I did not attempt to close this opening. There was no active drainage from that site. Additional local was injected into both openings. The incision that I made was closed with interrupted 4-0 Monocryl subcuticular stitches. The skin was cleaned and dried. Dermabond was placed. The exit site of the catheter was covered with a dry dressing. The patient tolerated the procedure well. There were no complications. All counts were correct at the end of the case was. JOB# [id number] AILYN/MARIE
[2018-12-08] MEDS: NS/KCL 40MEQ 40 MEQ/1,000 ML BAG IV SCH (21:55)
[2018-12-09] MEDS: HumaLOG SUB-Q SCH ×3 (01:28→11:37)
[2018-12-09] MEDS: LASIX PO SCH (06:52)
[2018-12-09 08:04] LABS: Hematocrit 38.4 % (35.5-45.6); Hemoglobin 12.8 gm/dl (11.8-15.2); Mean Corpuscular HGB Conc 33 % (32-34); Mean Corpuscular Volume 81 fl (84-94); Platelet Count 216 K/mm3 (140-440); Red Blood Count 4.73 M/mm3 (3.65-5.03); Red Cell Distribution Width 14.4 % (13.2-15.2)
[2018-12-09 08:33] LABS: Calcium 7.2 mg/dL (8.4-10.2)
[2018-12-09] MEDS: HEPARIN SUB-Q SCH (09:18)
[2018-12-09] MEDS: TUMS PO SCH (09:18)
[2018-12-09] MEDS: SODIUM CHLORIDE FLUSH SYRINGE 10 ML IV SCH (09:18)
[2018-12-09] MEDS: COREG PO SCH (09:23)
[2018-12-09] MEDS: ALDACTONE PO SCH (09:23)
--- NOTE | 2018-12-09 09:31 | Progress Note ---
Assessment and Plan 63-year-old male with end-stage renal disease with peritonitis and peritoneal dialysis catheter issues who require transition to hemodialysis. Status post PermCath placement without issue. Follow-up for AV access creation once acute issues resolve. Subjective Date of service: 12/09/18 Interval history: Feels better. No issues with permcath. Abdomen feels better. Objective - Constitutional Vitals: Vital Signs - 12hr 12/08/18 12/09/18 12/09/18 21:53 02:26 02:27 Temperature Pulse Rate 73 69 69 Respiratory Rate Blood Pressure 125/48 O2 Sat by Pulse Oximetry 12/09/18 12/09/18 12/09/18 03:27 03:29 06:45 Temperature 98.6 F Pulse Rate 70 68 Respiratory 18 Rate Blood Pressure 91/45 108/55 O2 Sat by Pulse 95 Oximetry 12/09/18 12/09/18 12/09/18 07:30 07:31 09:23 Temperature 99.6 F Pulse Rate 70 70 70 Respiratory 18 Rate Blood Pressure 109/56 109/56 O2 Sat by Pulse 91 97 Oximetry General appearance: Present: no acute distress - EENT Eyes: EOM intact ENT: hearing intact - Neck Neck: supple, other (permcath without pain) - Respiratory Respiratory effort: normal - Gastrointestinal General gastrointestinal: Present: soft, other (dressing on abdomen) - Psychiatric Psychiatric: appropriate mood/affect, cooperative - Labs CBC & Chem 7: 12/09/18 07:53 12/09/18 07:53 Labs: Abnormal lab results 12/07/18 12/08/18 12/08/18 Range/Units 12:55 12:11 13:25 MCV (84-94) fl MCH (28-32) pg Creatinine (0.8-1.5) mg/dL Glucose (75-100) mg/dL POC Glucose > 500 H 142 H 167 H (70-105) Calcium (8.4-10.2) mg/dL 12/08/18 12/08/18 12/09/18 Range/Units 18:51 23:59 07:33 MCV (84-94) fl MCH (28-32) pg Creatinine (0.8-1.5) mg/dL Glucose (75-100) mg/dL POC Glucose 189 H 209 H 116 H (70-105) Calcium (8.4-10.2) mg/dL 12/09/18 12/09/18 Range/Units 07:53 07:53 MCV 81 L (84-94) fl MCH 27 L (28-32) pg Creatinine 6.5 H (0.8-1.5) mg/dL Glucose 124 H (75-100) mg/dL POC Glucose (70-105) Calcium 7.2 L (8.4-10.2) mg/dL Medications & Allergies - Medications Allergies/Adverse Reactions: Allergies No Known Allergies Allergy (Verified 12/07/18 12:08) Home Medications: Home Medications Medication Instructions Recorded Confirmed Last Taken Type AtorvaSTATin 40 mg PO DAILY 12/07/18 12/07/18 12/06/18 History 1 tab Calcium Carbonate [Tums] 1,000 mg PO ONCE 12/07/18 12/07/18 12/06/18 History 1 tab Carvedilol 12.5 mg PO BID 12/07/18 12/07/18 12/06/18 History 1 tab Furosemide [Lasix] 80 mg PO DAILY 12/07/18 12/07/18 12/06/18 History 1 tab Losartan [Cozaar] 100 mg PO QDAY 12/07/18 12/07/18 12/06/18 History 1 tab Minoxidil [Loniten] 10 mg PO BID 12/07/18 12/07/18 12/06/18 History 1 tab Ondansetron [Zofran TAB] 4 mg PO Q8HR PRN 12/07/18 12/07/18 12/06/18 History 1 tab Spironolactone [Aldactone] 50 mg PO QDAY 12/07/18 12/07/18 12/06/18 History 1 tab amLODIPine 10 mg PO DAILY 12/07/18 12/07/18 12/06/18 History 1 tab glipiZIDE [Glipizide] 10 mg PO BID 12/07/18 12/07/18 12/06/18 History 1 tab hydrALAZINE [Apresoline TAB] 100 mg PO TID 12/07/18 12/07/18 12/06/18 History 1 tab Active Medications: Generic Name Dose Route Start Last Admin Trade Name Freq PRN Reason Stop Dose Admin Acetaminophen 650 mg 12/07/18 13:06 12/07/18 22:50 Tylenol PO 650 mg Q4H PRN Administration Pain MILD(1-3)/Fever >100.5/HOLLY Albuterol 2.5 mg 12/07/18 13:06 Proventil IH Q4HRT PRN Shortness Of Breath Atorvastatin Calcium 40 mg 12/07/18 22:00 12/08/18 21:53 Lipitor PO 40 mg QHS BRE Administration Calcium Carbonate/Glycine 1,000 mg 12/08/18 10:00 12/09/18 09:18 Tums PO 1,000 mg DAILY [facility] Administration Carvedilol 12.5 mg 12/07/18 22:00 12/09/18 09:23 Coreg PO Not Given BID BRE Dextrose 50 ml 12/07/18 13:09 12/08/18 00:22 D50w (25gm) Syringe IV 50 ml PRN PRN Administration Hypoglycemia Furosemide 80 mg 12/08/18 06:00 12/09/18 06:52 Lasix PO 80 mg DAILY@0600 BRE Administration Heparin Sodium (Porcine) 5,000 unit 12/08/18 10:00 12/09/18 09:18 Heparin SUB-Q 5,000 unit Q12HR [facility] Administration Heparin Sodium (Porcine) 2,000 unit 12/08/18 11:35 Heparin 10,000 Units/10 Ml IV STUART PRN hemodialysis Heparin Sodium (Porcine) 1,000 unit 12/08/18 11:35 Heparin 10,000 Units/10 Ml IV STUART PRN hemodialysis Potassium Chloride/Sodium Chloride 40 meq in 1,000 mls @ 75 mls/hr 12/07/18 16:00 12/08/18 21:55 Ns/Kcl 40meq IV 75 mls/hr DIRECT BRE Administration Sodium Chloride 100 mls @ 999 mls/hr 12/08/18 11:35 Nacl 0.9% IV STUART PRN Hypotension Sodium Chloride 1,000 mls @ 42 mls/hr 12/08/18 12:00 12/08/18 12:19 Nacl 0.9% 1000 Ml IV 42 mls/hr DIRECT BRE Administration Insulin Human Lispro 0 unit 12/07/18 18:00 12/09/18 06:49 Humalog SUB-Q Not Given Q6HR [facility] Protocol Ondansetron HCl 4 mg 12/07/18 13:06 Zofran IV Q8H PRN Nausea And Vomiting Ondansetron HCl 4 mg 12/07/18 18:50 Zofran Odt PO Q8HR PRN Nausea And Vomiting Sodium Chloride 10 ml 12/07/18 22:00 12/09/18 09:18 Sodium Chloride Flush Syringe 10 Ml IV 10 ml BID BRE Administration Sodium Chloride 10 ml 12/07/18 13:06 Sodium Chloride Flush Syringe 10 Ml IV PRN PRN LINE FLUSH Spironolactone 50 mg 12/08/18 10:00 12/09/18 09:23 Aldactone PO Not Given QDAY BRE
--- NOTE | 2018-12-09 09:33 | Progress Note ---
Assessment and Plan - Patient Problems (1) Peritonitis due to infected peritoneal dialysis catheter Current Visit: Yes Status: Acute Qualifiers: Qualified Code(s): T85.71XA - Infection and inflammatory reaction due to peritoneal dialysis catheter, initial encounter; K65.9 - Peritonitis, unspecified Plan to address problem: s/p PD catheter removal. Pt stable. Did not realize that he had surgery! May remove dressing tomorrow. May shower tomorrow. Replace dressing if there is any drainage. ok to d/c from my standpoint. - f/u prn. - can place new PD catheter in the future, if desired. please call with questions. Subjective Date of service: 12/09/18 Patient Reports: Positive: no new complaints Objective Vital Signs - 12hr 12/08/18 12/09/18 12/09/18 21:53 02:26 02:27 Temperature Pulse Rate 73 69 69 Respiratory Rate Blood Pressure 125/48 O2 Sat by Pulse Oximetry 12/09/18 12/09/18 12/09/18 03:27 03:29 06:45 Temperature 98.6 F Pulse Rate 70 68 Respiratory 18 Rate Blood Pressure 91/45 108/55 O2 Sat by Pulse 95 Oximetry 12/09/18 12/09/18 12/09/18 07:30 07:31 09:23 Temperature 99.6 F Pulse Rate 70 70 70 Respiratory 18 Rate Blood Pressure 109/56 109/56 O2 Sat by Pulse 91 97 Oximetry - General physical appearance no distress, no pain - Respiratory normal expansion, normal respiratory effort - Abdomen soft, not tender, not distended, surgical scars (minimal drainage on dressing. ) - Psychiatric oriented to time, oriented to person, oriented to place, speech is normal, memory intact - Labs 12/09/18 07:53 12/09/18 07:53 Diabetes panel 12/09/18 Range/Units 07:53 Sodium 137 (137-145) mmol/L Potassium 3.7 D (3.6-5.0) mmol/L Chloride 101.3 (98-107) mmol/L Carbon Dioxide 25 (22-30) mmol/L BUN 16 (9-20) mg/dL Creatinine 6.5 H (0.8-1.5) mg/dL Glucose 124 H (75-100) mg/dL Calcium 7.2 L (8.4-10.2) mg/dL Calcium panel 12/09/18 Range/Units 07:53 Calcium 7.2 L (8.4-10.2) mg/dL Pituitary panel 12/09/18 Range/Units 07:53 Sodium 137 (137-145) mmol/L Potassium 3.7 D (3.6-5.0) mmol/L Chloride 101.3 (98-107) mmol/L Carbon Dioxide 25 (22-30) mmol/L BUN 16 (9-20) mg/dL Creatinine 6.5 H (0.8-1.5) mg/dL Glucose 124 H (75-100) mg/dL Calcium 7.2 L (8.4-10.2) mg/dL Adrenal panel 12/09/18 Range/Units 07:53 Sodium 137 (137-145) mmol/L Potassium 3.7 D (3.6-5.0) mmol/L Chloride 101.3 (98-107) mmol/L Carbon Dioxide 25 (22-30) mmol/L BUN 16 (9-20) mg/dL Creatinine 6.5 H (0.8-1.5) mg/dL Glucose 124 H (75-100) mg/dL Calcium 7.2 L (8.4-10.2) mg/dL
--- NOTE | 2018-12-09 11:49 | Progress Note ---
Assessment and Plan 1. ESRD: S/p R IJ tunnel catheter. Patient was last dialyzed yesterday. Patient has outpatient HD chair at [facility] starting 12/12/18. 2. Diabetic hyperosmolar state: Improved. 3. FEN: Hypokalemia, improved. 4. Peritonitis: Continue Vancomycin. Vanco trough level is ok. Will continue Vancomycin with hemodialysis. S/p removal of PD catheter. 5. Hypertension: BP is low normal. Hold BP meds. 6. Tobacco smoking: Counseled multiple times. Also d/w his over the phone about the treatment plans. Subjective Date of service: 12/09/18 Interval history: Patient was seen and examined at the bedside. Doing better. Objective - Vital Signs Vital signs: Vital Signs - 12hr 12/09/18 12/09/18 12/09/18 02:26 02:27 03:27 Temperature 98.6 F Pulse Rate 69 69 Respiratory 18 Rate Blood Pressure 91/45 O2 Sat by Pulse Oximetry 12/09/18 12/09/18 12/09/18 03:29 06:45 07:30 Temperature 99.6 F Pulse Rate 70 68 70 Respiratory 18 Rate Blood Pressure 108/55 109/56 O2 Sat by Pulse 95 91 Oximetry 12/09/18 12/09/18 12/09/18 07:31 09:23 10:27 Temperature Pulse Rate 70 70 70 Respiratory Rate Blood Pressure 109/56 O2 Sat by Pulse 97 Oximetry - General Appearance General appearance: well-developed, well-nourished, appears stated age, other (not in distress, R IJ tunnel catheter) EENT: ATNC, PERRL, mucous membranes moist, hearing intact, vision intact Neck: supple Respiratory: Present: Clear to Ascultation Cardiology: regular, S1S2, no murmurs Gastrointestinal: normoactive bowel sounds, no tenderness, no distended Integumentary: no rash, warm and dry Neurologic: no focal deficit, no asterixis, confused, disoriented Musculoskeletal: other (no edema) Psychiatric: cooperative - Lab 12/09/18 07:53 12/09/18 07:53 Most recent lab results Calcium 7.2 mg/dL (8.4-10.2) L 12/09/18 07:53 Phosphorus 2.80 mg/dL (2.5-4.5) 12/08/18 04:57 Magnesium 1.80 mg/dL (1.7-2.3) 12/09/18 07:53 Medications & Allergies - Medications Allergies/Adverse Reactions: Allergies No Known Allergies Allergy (Verified 12/07/18 12:08) Home Medications: Home Medications Medication Instructions Recorded Confirmed Last Taken Type AtorvaSTATin 40 mg PO DAILY 12/07/18 12/07/18 12/06/18 History 1 tab Calcium Carbonate [Tums] 1,000 mg PO ONCE 12/07/18 12/07/18 12/06/18 History 1 tab Carvedilol 12.5 mg PO BID 12/07/18 12/07/18 12/06/18 History 1 tab Furosemide [Lasix] 80 mg PO DAILY 12/07/18 12/07/18 12/06/18 History 1 tab Losartan [Cozaar] 100 mg PO QDAY 12/07/18 12/07/18 12/06/18 History 1 tab Minoxidil [Loniten] 10 mg PO BID 12/07/18 12/07/18 12/06/18 History 1 tab Ondansetron [Zofran TAB] 4 mg PO Q8HR PRN 12/07/18 12/07/18 12/06/18 History 1 tab Spironolactone [Aldactone] 50 mg PO QDAY 12/07/18 12/07/18 12/06/18 History 1 tab amLODIPine 10 mg PO DAILY 12/07/18 12/07/18 12/06/18 History 1 tab glipiZIDE [Glipizide] 10 mg PO BID 12/07/18 12/07/18 12/06/18 History 1 tab hydrALAZINE [Apresoline TAB] 100 mg PO TID 12/07/18 12/07/18 12/06/18 History 1 tab Acetaminophen [Acetaminophen TAB] 650 mg PO Q4H PRN #15 tablet 12/09/18 Unknown Rx Active Medications: Generic Name Dose Route Start Last Admin Trade Name Freq PRN Reason Stop Dose Admin Acetaminophen 650 mg 12/07/18 13:06 12/07/18 22:50 Tylenol PO 650 mg Q4H PRN Administration Pain MILD(1-3)/Fever >100.5/HOLLY Albuterol 2.5 mg 12/07/18 13:06 Proventil IH Q4HRT PRN Shortness Of Breath Atorvastatin Calcium 40 mg 12/07/18 22:00 12/08/18 21:53 Lipitor PO 40 mg QHS BRE Administration Calcium Carbonate/Glycine 1,000 mg 12/08/18 10:00 12/09/18 09:18 Tums PO 1,000 mg DAILY BRE Administration Carvedilol 12.5 mg 12/07/18 22:00 12/09/18 09:23 Coreg PO Not Given BID BRE Dextrose 50 ml 12/07/18 13:09 12/08/18 00:22 D50w (25gm) Syringe IV 50 ml PRN PRN Administration Hypoglycemia Furosemide 80 mg 12/08/18 06:00 12/09/18 06:52 Lasix PO 80 mg DAILY@0600 [facility] Administration Heparin Sodium (Porcine) 5,000 unit 12/08/18 10:00 12/09/18 09:18 Heparin SUB-Q 5,000 unit Q12HR BRE Administration Heparin Sodium (Porcine) 2,000 unit 12/08/18 11:35 Heparin 10,000 Units/10 Ml IV STUART PRN hemodialysis Heparin Sodium (Porcine) 1,000 unit 12/08/18 11:35 Heparin 10,000 Units/10 Ml IV STUART PRN hemodialysis Sodium Chloride 100 mls @ 999 mls/hr 12/08/18 11:35 Nacl 0.9% IV STUART PRN Hypotension Insulin Human Lispro 0 unit 12/07/18 18:00 12/09/18 11:37 Humalog SUB-Q 6 unit Q6HR BRE Administration Protocol Ondansetron HCl 4 mg 12/07/18 13:06 Zofran IV Q8H PRN Nausea And Vomiting Ondansetron HCl 4 mg 12/07/18 18:50 Zofran Odt PO Q8HR PRN Nausea And Vomiting Sodium Chloride 10 ml 12/07/18 22:00 12/09/18 09:18 Sodium Chloride Flush Syringe 10 Ml IV 10 ml BID BRE Administration Sodium Chloride 10 ml 12/07/18 13:06 Sodium Chloride Flush Syringe 10 Ml IV PRN PRN LINE FLUSH Spironolactone 50 mg 12/08/18 10:00 12/09/18 09:23 Aldactone PO Not Given QDAY [facility]
--- NOTE | 2018-12-09 14:29 | Progress Note ---
Assessment and Plan Assessment and plan: Patient is a 63 yo man with a history of ESRD on Peritoneal Dialysis, HTN, HLD, Dementia and Nicotine Dependence who was directly admitted at the request of Dr. Wyman. He was suspected of having Peritonitis. He was found to have serum glucose above 800 pre-operatively. Pt vascular procedure was cancelled. Pt admitted to [facility]. -Abdominal Peritionitis; d/w Dr. Pederson and will manage abx with hemodialysis -Hypokalemia: replace gently due to ESRD -Hypomagnesemia: iv mag replacement, monitor daily -ESRD: change from PD to HD, renal to manage -Type 2 diabetes mellitus with HONK: treat with insulin, monitor accucheck -Hypertension; low salt diet -Dyslipidemia; statin -Nicotine dependence: clinical counselor on stopping -DVT prophylaxis reviewed History Interval history: Patient was seen and examined. Follow-up on current diagnosis of PD infection. Overnight uneventful. Patient denies any chest pain, shortness breath, nausea/vomiting or severe headaches. Imaging, nursing note, chart, labs and old chart reviewed. Discussed with patient. Hospitalist Physical - Physical exam Narrative exam: Gen: WDWN, NAD, Awake, Alert, Orientated x 2 HEENT: NCAT, EOMI, PERRL, OP Clear Neck: supple, no adenopathy, no thyromegaly, no JVD CVS/Heart: RRR, normal S1S2, pulses present bilaterally Chest/Lungs: CTA B, Symmetrical chest expansion, good air entry bilaterally GI/Abdomen: soft, NTND, good bowel sounds, no guarding or rebound, left PD catheter out /Bladder: no suprapubic tenderness, no CVA or paraspinal tenderness Extermity/Skin: no c/c/e, no obvious rash, right cw perm-cath in place MSK: FROM x 4 Neuro: CN 2-12 grossly intact, no new focal deficits Psych: calm - Constitutional Vitals: Temp Pulse Resp BP Pulse Ox 99.6 F 70 18 109/56 97 12/09/18 07:30 12/09/18 10:27 12/09/18 07:30 12/09/18 09:23 12/09/18 07:31 General appearance: Present: no acute distress Results - Labs CBC & Chem 7: 12/09/18 07:53 12/09/18 07:53 Labs: Laboratory Last Values WBC 6.2 K/mm3 (4.5-11.0) 12/09/18 07:53 RBC 4.73 M/mm3 (3.65-5.03) 12/09/18 07:53 Hgb 12.8 gm/dl (11.8-15.2) 12/09/18 07:53 Hct 38.4 % (35.5-45.6) 12/09/18 07:53 MCV 81 fl (84-94) L 12/09/18 07:53 MCH 27 pg (28-32) L 12/09/18 07:53 MCHC 33 % (32-34) 12/09/18 07:53 RDW 14.4 % (13.2-15.2) 12/09/18 07:53 Plt Count 216 K/mm3 (140-440) 12/09/18 07:53 Lymph % (Auto) 13.2 % (13.4-35.0) L 12/07/18 12:00 Bremer % (Auto) 6.3 % (0.0-7.3) 12/07/18 12:00 Eos % (Auto) 0.6 % (0.0-4.3) 12/07/18 12:00 Baso % (Auto) 0.4 % (0.0-1.8) 12/07/18 12:00 Lymph # 1.0 K/mm3 (1.2-5.4) L 12/07/18 12:00 Bremer # 0.5 K/mm3 (0.0-0.8) 12/07/18 12:00 Eos # 0.0 K/mm3 (0.0-0.4) 12/07/18 12:00 Baso # 0.0 K/mm3 (0.0-0.1) 12/07/18 12:00 Seg Neutrophils % 79.5 % (40.0-70.0) H 12/07/18 12:00 Seg Neutrophils # 5.9 K/mm3 (1.8-7.7) 12/07/18 12:00 PT 12.4 Sec. (12.2-14.9) 12/07/18 12:00 INR 0.87 (0.87-1.13) 12/07/18 12:00 APTT 27.5 Sec. (24.2-36.6) 12/07/18 12:00 Sodium 137 mmol/L (137-145) 12/09/18 07:53 Potassium 3.7 mmol/L (3.6-5.0) D 12/09/18 07:53 Chloride 101.3 mmol/L (98-107) 12/09/18 07:53 Carbon Dioxide 25 mmol/L (22-30) 12/09/18 07:53 Anion Gap 14 mmol/L 12/09/18 07:53 BUN 16 mg/dL (9-20) 12/09/18 07:53 Creatinine 6.5 mg/dL (0.8-1.5) H 12/09/18 07:53 Estimated GFR 10 ml/min 12/09/18 07:53 BUN/Creatinine Ratio 2 % 12/09/18 07:53 Glucose 124 mg/dL (75-100) H 12/09/18 07:53 POC Glucose 232 (70-105) H 12/09/18 11:30 Calcium 7.2 mg/dL (8.4-10.2) L 12/09/18 07:53 Phosphorus 2.80 mg/dL (2.5-4.5) 12/08/18 04:57 Magnesium 1.80 mg/dL (1.7-2.3) 12/09/18 07:53 Vancomycin Trough 13.5 ug/mL (5.0-20.0) 12/09/18 07:53 Active Medications - Current Medications Current Medications: Generic Name Dose Route Start Last Admin Trade Name Freq PRN Reason Stop Dose Admin Acetaminophen 650 mg 12/07/18 13:06 12/07/18 22:50 Tylenol PO 650 mg Q4H PRN Administration Pain MILD(1-3)/Fever >100.5/HOLLY Albuterol 2.5 mg 12/07/18 13:06 Proventil IH Q4HRT PRN Shortness Of Breath Atorvastatin Calcium 40 mg 12/07/18 22:00 12/08/18 21:53 Lipitor PO 40 mg QHS BRE Administration Calcium Carbonate/Glycine 1,000 mg 12/08/18 10:00 12/09/18 09:18 Tums PO 1,000 mg DAILY BRE Administration Carvedilol 12.5 mg 12/07/18 22:00 04/24/19 09:23 Coreg PO Not Given BID BRE Dextrose 50 ml 12/07/18 13:09 12/08/18 00:22 D50w (25gm) Syringe IV 50 ml PRN PRN Administration Hypoglycemia Furosemide 80 mg 12/08/18 06:00 12/09/18 06:52 Lasix PO 80 mg DAILY@0600 BRE Administration Heparin Sodium (Porcine) 5,000 unit 12/08/18 10:00 12/09/18 09:18 Heparin SUB-Q 5,000 unit Q12HR BRE Administration Heparin Sodium (Porcine) 2,000 unit 12/08/18 11:35 Heparin 10,000 Units/10 Ml IV STUART PRN hemodialysis Heparin Sodium (Porcine) 1,000 unit 12/08/18 11:35 Heparin 10,000 Units/10 Ml IV STUART PRN hemodialysis Sodium Chloride 100 mls @ 999 mls/hr 12/08/18 11:35 Nacl 0.9% IV STUART PRN Hypotension Insulin Human Lispro 0 unit 12/07/18 18:00 12/09/18 11:37 Humalog SUB-Q 6 unit Q6HR BRE Administration Protocol Ondansetron HCl 4 mg 12/07/18 13:06 Zofran IV Q8H PRN Nausea And Vomiting Ondansetron HCl 4 mg 12/07/18 18:50 Zofran Odt PO Q8HR PRN Nausea And Vomiting Sodium Chloride 10 ml 12/07/18 22:00 12/09/18 09:18 Sodium Chloride Flush Syringe 10 Ml IV 10 ml BID BRE Administration Sodium Chloride 10 ml 12/07/18 13:06 Sodium Chloride Flush Syringe 10 Ml IV PRN PRN LINE FLUSH Spironolactone 50 mg 12/08/18 10:00 12/09/18 09:23 Aldactone PO Not Given QDAY BRE
[2018-12-09 14:34] VITALS: BP 99/55
--- NOTE | 2018-12-09 14:34 | Discharge Summary ---
Providers - Providers Date of Admission: 12/07/18 13:06 Date of discharge: 12/09/18 Attending physician: NADIA TAYLOR 12/07/18 13:06 Consult to Physician [CONS] Routine Comment: Consulting Provider: DARÍO NAVARRO Physician Instructions: Reason For Exam: esrd 12/07/18 13:08 Consult to Physician [CONS] Routine Comment: Consulting Provider: NOAH GONZALEZ Physician Instructions: Reason For Exam: infected permacath 12/07/18 16:30 Consult to Physician [CONS] Routine Comment: Consulting Provider: KARINA ROSARIO Physician Instructions: Reason For Exam: Te remove PD catheter. Primary care physician: DARÍO NAVARRO Hospitalization Condition: Stable Hospital course: Patient is a 63 yo man with a history of ESRD on Peritoneal Dialysis, HTN, HLD, Dementia and Nicotine Dependence who was directly admitted at the request of Dr. Gonzalez. He was suspected of having Peritonitis. He was found to have serum glucose above 800 pre-operatively. Pt vascular procedure was cancelled. Pt admitted to [facility]. -Abdominal Peritionitis; d/w Dr. Navarro and will manage abx with hemodialysis -Hypokalemia: replace gently due to ESRD -Hypomagnesemia: iv mag replacement, monitor daily -ESRD: change from PD to HD, renal to manage -Type 2 diabetes mellitus with HONK: treat with insulin, monitor accucheck -Hypertension; low salt diet -Dyslipidemia; statin -Nicotine dependence: patent counsel on stopping -DVT prophylaxis reviewed Disposition: DC-01 TO HOME OR SELFCARE Time spent for discharge: 35 minutes Core Measure Documentation - Palliative Care Palliative Care/ Comfort Measures: Not Applicable - Core Measures Any of the following diagnoses?: none - VTE Discharge Requirements Deep Vein Thrombosis/Pulmonary Embolism Present on Admission: No Has pt received <5 days of overlap therapy or INR<2.0: No Anticoagulant overlap therapy prescribed at discharge: No Contraindication No Overlap Therapy order at DC: Not Indicated Exam - Physical Exam Narrative exam: Gen: WDWN, NAD, Awake, Alert, Orientated x 2 HEENT: NCAT, EOMI, PERRL, OP Clear Neck: supple, no adenopathy, no thyromegaly, no JVD CVS/Heart: RRR, normal S1S2, pulses present bilaterally Chest/Lungs: CTA B, Symmetrical chest expansion, good air entry bilaterally GI/Abdomen: soft, NTND, good bowel sounds, no guarding or rebound, left PD catheter out /Bladder: no suprapubic tenderness, no CVA or paraspinal tenderness Extermity/Skin: no c/c/e, no obvious rash, right cw perm-cath in place MSK: FROM x 4 Neuro: CN 2-12 grossly intact, no new focal deficits Psych: calm - Constitutional Vitals: Temp Pulse Resp BP Pulse Ox 99.6 F 70 18 109/56 97 12/09/18 07:30 12/09/18 10:27 12/09/18 07:30 12/09/18 09:23 12/09/18 07:31 Plan Activity: other (no strenous activity) Diet: renal Follow up with: DARÍO NAVARRO MD [Primary Care Provider] - 7 Days
== END 2018-12-09 16:34 | disposition home or self-care (01) | DRG 919 ==
LOC: CATHLABREC 11:15 → IMCU 13:06 → 2B-ACE 12-08 18:07
PROVIDERS: ADMIT Internal Medicine; ATTEND Internal Medicine
PROC: 0JH63XZ Insertion of Tunneled Vascular Access Device into Chest Subcutaneous Tissue and Fascia, Percutaneous Approach (ICD-10-PCS; principal; 2018-12-08)
PROC: 02H633Z Insertion of Infusion Device into Right Atrium, Percutaneous Approach (ICD-10-PCS; 2018-12-08)
PROC: B2141ZZ Fluoroscopy of Right Heart using Low Osmolar Contrast (ICD-10-PCS; 2018-12-08)
PROC: B543ZZA Ultrasonography of Right Jugular Veins, Guidance (ICD-10-PCS; 2018-12-08)
PROC: 5A1D70Z Performance of Urinary Filtration, Intermittent, Less than 6 Hours Per Day (ICD-10-PCS; 2018-12-08)
PROC: 0JPT3XZ Removal of Tunneled Vascular Access Device from Trunk Subcutaneous Tissue and Fascia, Percutaneous Approach (ICD-10-PCS; 2018-12-08)
PROC: 02PAX3Z Removal of Infusion Device from Heart, External Approach (ICD-10-PCS; 2018-12-08)
DX: T85.71XA Infection and inflammatory reaction due to peritoneal dialysis catheter, initial encounter (principal); K65.9 Peritonitis, unspecified; N18.6 End stage renal disease; E11.00 Type 2 diabetes mellitus with hyperosmolarity without nonketotic hyperglycemic-hyperosmolar coma (NKHHC); I12.0 Hypertensive chronic kidney disease with stage 5 chronic kidney disease or end stage renal disease; E87.6 Hypokalemia; F03.90 Unspecified dementia, unspecified severity, without behavioral disturbance, psychotic disturbance, mood disturbance, and anxiety; F17.200 Nicotine dependence, unspecified, uncomplicated; E83.42 Hypomagnesemia; E11.22 Type 2 diabetes mellitus with diabetic chronic kidney disease; E11.65 Type 2 diabetes mellitus with hyperglycemia; E78.5 Hyperlipidemia, unspecified; Y83.2 Surgical operation with anastomosis, bypass or graft as the cause of abnormal reaction of the patient, or of later complication, without mention of misadventure at the time of the procedure; Z71.6 Tobacco abuse counseling; Z99.81 Dependence on supplemental oxygen; Z82.49 Family history of ischemic heart disease and other diseases of the circulatory system; Z83.3 Family history of diabetes mellitus; Z79.899 Other long term (current) drug therapy; Y92.89 Other specified places as the place of occurrence of the external cause
CPT/HCPCS: 36415; 36558; 77001; 80048; 80202; 82962; 83735; 84100; 85025; 85027; 85610; 85730; 87116; 96372; G0378; A9270-GY; C1750; J0690; J1170; J1644; J1815; J2250; J2704; J3010; J3370; J3475; J3480; J7030

== ENCOUNTER 2019-04-15 08:42 | Day surgery (SDC) | payer MEDICARE ==
--- NOTE | 2019-04-15 09:28 | Anesthesia Consultation ---
Anesthesia Consult and Med Hx Date of service: 04/15/19 - Airway Anesthetic Teeth Evaluation: Dentures, Partials ROM Head & Neck: Adequate Mental/Hyoid Distance: Adequate Mallampati Class: Class II Intubation Access Assessment: Good - Pulmonary Exam CTA: Yes - Cardiac Exam Cardiac Exam: RRR - Pre-Operative Health Status ASA Pre-Surgery Classification: ASA3 Proposed Anesthetic Plan: General (ESRD on HD , HTN for GA) - Pulmonary Hx Smoking: Yes Hx Asthma: No COPD: No Hx Pneumonia: No Hx Sleep Apnea: No - Cardiovascular System Hx Hypertension: Yes Hx Heart Attack/AMI: No Hx Angina: No - Central Nervous System CVA: No Hx Psychiatric Problems: No - Endocrine Hx Renal Disease: Yes Hx End Stage Renal Disease: Yes Hx Insulin Dependent Diabetes: Yes - Hematic Hx Anemia: Yes - Other Systems Hx Cancer: No
--- NOTE | 2019-04-15 09:29 | Anesthesia Day of Surgery ---
Anesthesia Day of Surgery - Day of Surgery Patient Examined: Yes Patient H&P Reviewed: Yes Patient is NPO: Yes
[2019-04-15] MEDS ORDERED: XYLOCAINE 1%/ EPI 1:100,000 INFILTRATI ONE (09:59)
[2019-04-15] MEDS ORDERED: MARCAINE-EPI 0.5%-1:200,000 INFILTRATI ONE (09:59)
[2019-04-15] MEDS ORDERED: NACL 0.9% 200 ML ONE (09:59)
[2019-04-15] MEDS ORDERED: HEPARIN 10,000 UNITS/10 ML ONE (09:59)
[2019-04-15] MEDS ORDERED: NACL 0.9% 1000 ML 1,000 ML IV SCH (10:00)
[2019-04-15] MEDS ORDERED: DILAUDID IV PRN (10:00)
[2019-04-15] MEDS ORDERED: ZOFRAN IV PRN (10:00)
[2019-04-15] MEDS ORDERED: VERSED IV NR (10:00)
[2019-04-15] MEDS ORDERED: PROTAMINE SULFATE ONE (10:15)
[2019-04-15] MEDS ORDERED: XYLOCAINE 1% 20 mL ONE (10:15)
[2019-04-15] MEDS ORDERED: DECADRON ONE (10:17)
[2019-04-15] MEDS ORDERED: ZOFRAN ONE (10:17)
[2019-04-15] MEDS ORDERED: SUBLIMAZE ONE ×2 (10:18→11:41)
[2019-04-15] MEDS ORDERED: DIPRIVAN 10 MG/ML IV ONE (10:18)
[2019-04-15] MEDS ORDERED: ANCEF/STERILE WATER 2 GM/20 ML IV NR (10:27)
[2019-04-15] MEDS ORDERED: HEPARIN 10,000 UNITS/10 ML IV ONE (11:28)
[2019-04-15] MEDS ORDERED: NACL 0.9% IV ONE (11:28)
[2019-04-15] MEDS ORDERED: XYLOCAINE MPF 2% ONE (11:35)
--- NOTE | 2019-04-15 13:22 | Post Operative Note ---
Pre-op diagnosis: ESRD Post-op diagnosis: same Procedure: Left Arm AV Graft Insertion Anesthesia: GETA Surgeon: EMIL MURILLO Estimated blood loss: other (25ml) Pathology: none Condition: stable Disposition: PACU
--- NOTE | 2019-04-15 13:27 | Short Stay Summary ---
Short Stay Documentation Date of service: 04/15/19 Narrative H&P: 63yo male with ESRD in need of dialysis access. - History H&P: obtained from office Past Medical History: dialysis, ESRD Social history: no significant social history - Allergies and Medications Current Medications: Allergies No Known Allergies Allergy (Verified 04/12/19 17:10) Home Medications Medication Instructions Recorded Confirmed Last Taken Type AtorvaSTATin 40 mg PO DAILY 12/07/18 12/07/18 04/14/19 08:00 History Furosemide [Lasix TAB] 80 mg PO DAILY 12/07/18 12/07/18 04/14/19 08:00 History Losartan [Cozaar] 100 mg PO QDAY 12/07/18 12/07/18 04/14/19 08:00 History Minoxidil [Loniten] 10 mg PO BID 12/07/18 12/07/18 04/14/19 08:00 History Spironolactone [Aldactone] 50 mg PO QDAY 12/07/18 12/07/18 04/14/19 08:00 History amLODIPine 10 mg PO DAILY 12/07/18 12/07/18 04/14/19 08:00 History hydrALAZINE [Apresoline TAB] 100 mg PO TID 12/07/18 12/07/18 04/14/19 08:00 History Active Medications Cefazolin Sodium (Ancef/Sterile Water 2 Gm/20 Ml) 2 gm IV PREOP NR Stop: 04/15/19 23:59 Hydromorphone HCl (Dilaudid) 0.5 mg IV Q10MIN PRN PRN Reason: Pain , Severe (7-10) Stop: 04/15/19 17:00 Sodium Chloride (Nacl 0.9% 1000 Ml) 1,000 mls @ 42 mls/hr IV DIRECT BRE Last Admin: 04/15/19 10:20 Dose: 42 mls/hr Documented by: Midazolam HCl (Versed) 2 mg IV PREOP NR Stop: 04/15/19 23:59 Last Admin: 04/15/19 10:43 Dose: 2 mg Documented by: Ondansetron HCl (Zofran) 4 mg IV ONCE PRN PRN Reason: Nausea And Vomiting Stop: 04/15/19 19:00 Percocet 5/325mg 1 tab q6hr PRN Pain - Physical exam General appearance: no acute distress, well-nourished Lungs: Normal air movement Heart: Regular rate Extremities: no ischemia, pulses intact - Hospital course Hospital course: the patient was taken to the operating room and had a left arm av graft insertion performed. please refer to the operative note concerning details of the procedure. the patient tolerated the procedure well and was discharged home in stable condition. - Disposition Condition at discharge: Stable Disposition: DC-01 TO HOME OR SELFCARE - Discharge Diagnoses (1) ESRD (end stage renal disease) Status: Chronic Short Stay Discharge Plan Follow up with: DARÍO NAVARRO MD [Primary Care Provider] - 7 Days Prescriptions: oxyCODONE /ACETAMINOPHEN [Percocet 5/325] 1 tab PO Q6HR PRN 7 Days #24 tablet PRN Reason: Pain
[2019-04-15] MEDS ORDERED: HumuLIN R IV ONE (13:42)
[2019-04-15 14:26] VITALS: BP 135/73
--- NOTE | 2019-04-15 15:21 | Operative Report ---
STAFF SURGEON: Moses Collado MD PREOPERATIVE DIAGNOSIS: End-stage renal disease. POSTOPERATIVE DIAGNOSIS: End-stage renal disease. PROCEDURE PERFORMED: Left arm AV graft insertion. COMPLICATIONS: None. ESTIMATED BLOOD LOSS: 25 mL. ANESTHESIA: General. INDICATION FOR PROCEDURE: This is a gentleman with end-stage renal disease, on hemodialysis via PermCath. The patient was seen in clinic for evaluation for upper extremity dialysis access. After vein mapping was obtained, the patient was found to be suitable for AV graft insertion. The patient was explained the risks, benefits and alternatives of the procedure, expressed understanding and wished to proceed. DESCRIPTION OF THE PROCEDURE: After appropriate consent was obtained, the patient was brought back to the operating room and placed on the operating table in supine position with left arm extended. Left arm was prepped and draped in the usual sterile fashion with ChloraPrep. Appropriate preoperative antibiotics were administered. The patient was given appropriate medications and general anesthesia, was intubated without difficulty. An appropriate timeout was performed indicating correct patient, procedure, and site of procedure. We then began the operation by making a longitudinal incision near the antecubital fossa. This was carried through subcutaneous tissue with a combination of blunt dissection and electrocautery. Dissection was continued through the bicipital aponeurosis and was allowed to expose the brachial artery, which was found to be suitable for arterial inflow, and the artery was exposed for appropriate distance both proximally and distally. We then proceeded to make a transverse incision near the axilla. This was carried through the subcutaneous tissue with a combination of blunt dissection and electrocautery. Dissection was continued through the fascia overlying the axillary neurovascular bundle. The axillary vein was identified and found to be suitable for venous outflow. This was mobilized for appropriate distance both proximally and distally. Then, a subcutaneous tunnel was made between the two incision sites, bringing it to 4-7 mm Propaten graft. The patient was given 5000 units of unfractionated heparin. After appropriate timeout elapsed, the vascular clamps were placed on the brachial artery, both proximally and distally, and the graft was appropriately spatulated and a longitudinal arteriotomy was made with a #11 blade and extended with Feliciano scissors. We then proceeded to perform an end-to-side anastomosis with a running 6-0 Prolene suture. Once complete flow was reestablished through the graft, we had a nice pulsatile flow and then the graft was then cut to an appropriate length, spatulated. Vascular clamps were placed on the axillary vein, both proximally and distally. A longitudinal venotomy was performed with a #11 blade and extended with Feliciano scissors. An end-to-side anastomosis was performed with a running 5-0 Prolene suture. Once complete flow was reestablished through the graft, we had a nice palpable thrill, we then looked to obtain hemostasis along the suture line, it was obtained with hemostatic agents as well as the patient being administered protamine. Once we are satisfied with hemostasis, both wounds were irrigated with saline solution and then I proceeded to close both wounds with a deep subcutaneous layer with a 3-0 PDS and then the skin was approximated with jennifer. Appropriate dressing was placed. The patient tolerated the procedure well, emerged from the general anesthesia, was extubated in the operating room and sent to recovery in stable condition. All sponge, instrument and needle counts were correct at completion of the operation. JOB# [id number] ZULEYKA/MARIE
--- NOTE | 2019-04-15 15:35 | Post Anesthesia Evaluation ---
- Post Anesthesia Evaluation Patient Participated: Yes Airway Patent: Yes Stable Respiratory Function: Yes Nausea/Vomiting: No Temp > 96.8F: Yes Pain Manageable: Yes Adequeate Hydration: Yes Anesthesia Complications: No Block Receding Appropriately: Not Applicable Patient on Ventilator: No
== END 2019-04-15 14:50 | disposition home or self-care (01) ==
LOC: OR 08:42
PROVIDERS: ATTEND Surgery Vascular Surgery
DX: I12.0 Hypertensive chronic kidney disease with stage 5 chronic kidney disease or end stage renal disease (principal); E10.22 Type 1 diabetes mellitus with diabetic chronic kidney disease; N18.6 End stage renal disease; E10.69 Type 1 diabetes mellitus with other specified complication; E78.5 Hyperlipidemia, unspecified; J43.9 Emphysema, unspecified; D64.9 Anemia, unspecified; F17.210 Nicotine dependence, cigarettes, uncomplicated; Z79.899 Other long term (current) drug therapy; Z98.890 Other specified postprocedural states
CPT/HCPCS: 36830; 82803; 82962; C1768; J1100; J1644; J2250; J2405; J2704; J2720; J3010; J7030; J1815

== ENCOUNTER 2019-04-28 12:46 | Observation (INO) | payer MEDICARE ==
--- NOTE | 2019-04-28 13:29 | Emergency Department Report ---
ED Abdominal Pain HPI - General Chief Complaint: Abdominal Pain Stated Complaint: ABD PAIN Time Seen by Provider: 04/28/19 13:25 Source: patient, EMS Mode of arrival: Stretcher Limitations: Physical Limitation - History of Present Illness Initial Comments: Patient is 63-year-old male presents emergency room with complaints of abdominal distention and pressure. Patient states the abdominal pressure is a 3 out of 10. Patient states hurting but just uncomfortable. Patient states that his abdominal since has been worsening. Patient states today filled up dramatically. Patient states she has a history of ascites. He states due to the abdominal distention that dialysis was not able to be done today. Patient states his abdominal discomfort is better with rest and worse with movement. MD Complaint: abdominal pain -: Sudden Location: diffuse Radiation: none Migration to: no migration Severity: mild Severity scale (0 -10): 3 Quality: aching Improves With: rest Worsens With: movement Associated Symptoms: denies: nausea, vomiting, diarrhea, fever, chills, constipation, dysuria, hematemesis, hematochezia, melena, hematuria, syncope - Related Data Home Medications Medication Instructions Recorded Confirmed Last Taken AtorvaSTATin 40 mg PO DAILY 12/07/18 12/07/18 04/14/19 08:00 Furosemide [Lasix TAB] 80 mg PO DAILY 12/07/18 12/07/18 04/14/19 08:00 Losartan [Cozaar] 100 mg PO QDAY 12/07/18 12/07/18 04/14/19 08:00 Minoxidil [Loniten] 10 mg PO BID 12/07/18 12/07/18 04/14/19 08:00 Spironolactone [Aldactone] 50 mg PO QDAY 12/07/18 12/07/18 04/14/19 08:00 amLODIPine 10 mg PO DAILY 12/07/18 12/07/18 04/14/19 08:00 hydrALAZINE [Apresoline TAB] 100 mg PO TID 12/07/18 12/07/18 04/14/19 08:00 Previous Rx's Medication Instructions Recorded Last Taken Type oxyCODONE /ACETAMINOPHEN [Percocet 1 tab PO Q6HR PRN 7 Days #24 tablet 04/15/19 Unknown Rx 5/325] Allergies Allergy/AdvReac Type Severity Reaction Status Date / Time No Known Allergies Allergy Verified 04/12/19 17:10 ED Review of Systems ROS: Stated complaint: ABD PAIN Other details as noted in HPI Constitutional: denies: chills, fever Eyes: denies: eye pain, eye discharge, vision change ENT: denies: ear pain, throat pain Respiratory: denies: cough, shortness of breath, wheezing Cardiovascular: denies: chest pain, palpitations Endocrine: no symptoms reported Gastrointestinal: abdominal pain. denies: nausea, diarrhea Genitourinary: denies: urgency, dysuria Musculoskeletal: denies: back pain, joint swelling, arthralgia Skin: denies: rash, lesions Neurological: denies: headache, weakness, paresthesias Psychiatric: denies: anxiety, depression Hematological/Lymphatic: denies: easy bleeding, easy bruising ED Past Medical Hx - Past Medical History Previous Medical History?: Yes Hx Hypertension: Yes Hx Heart Attack/AMI: No Hx Congestive Heart Failure: No Hx Diabetes: Yes Hx Renal Disease: Yes Hx Headaches / Migraines: No Hx Asthma: No Hx COPD: No Hx Dementia: No - Surgical History Past Surgical History?: Yes Hx Coronary Stent: No - Family History Family history: no significant - Social History Smoking Status: Current Every Day Smoker Substance Use Type: None - Medications Home Medications: Home Medications Medication Instructions Recorded Confirmed Last Taken Type AtorvaSTATin 40 mg PO DAILY 12/07/18 12/07/18 04/14/19 08:00 History Furosemide [Lasix TAB] 80 mg PO DAILY 12/07/18 12/07/18 04/14/19 08:00 History Losartan [Cozaar] 100 mg PO QDAY 12/07/18 12/07/18 04/14/19 08:00 History Minoxidil [Loniten] 10 mg PO BID 12/07/18 12/07/18 04/14/19 08:00 History Spironolactone [Aldactone] 50 mg PO QDAY 12/07/18 12/07/18 04/14/19 08:00 History amLODIPine 10 mg PO DAILY 12/07/18 12/07/18 04/14/19 08:00 History hydrALAZINE [Apresoline TAB] 100 mg PO TID 12/07/18 12/07/18 04/14/19 08:00 History oxyCODONE /ACETAMINOPHEN [Percocet 1 tab PO Q6HR PRN 7 Days #24 tablet 04/15/19 Unknown Rx 5/325] ED Physical Exam - General Limitations: Physical Limitation General appearance: alert, in no apparent distress - Head Head exam: Present: atraumatic, normocephalic - Eye Eye exam: Present: normal appearance - ENT ENT exam: Present: mucous membranes moist - Neck Neck exam: Present: normal inspection - Respiratory Respiratory exam: Present: normal lung sounds bilaterally. Absent: respiratory distress - Cardiovascular Cardiovascular Exam: Present: regular rate, normal rhythm. Absent: systolic murmur, diastolic murmur, rubs, gallop - GI/Abdominal GI/Abdominal exam: Present: soft, distended, tenderness, rigid, normal bowel sounds. Absent: guarding, rebound - Rectal Rectal exam: Present: deferred - Extremities Exam Extremities exam: Present: normal inspection - Back Exam Back exam: Present: normal inspection - Neurological Exam Neurological exam: Present: alert, oriented X3 - Psychiatric Psychiatric exam: Present: normal affect, normal mood - Skin Skin exam: Present: warm, dry, intact, normal color. Absent: rash ED Course Vital Signs 04/28/19 04/28/19 13:13 18:10 Temperature 98.5 F Pulse Rate 96 H 90 Respiratory 22 18 Rate Blood Pressure 146/78 Blood Pressure 146/72 [Right] O2 Sat by Pulse 99 98 Oximetry - Reevaluation(s) Reevaluation #1: Discussed all results with patient. I discussed plan of care with patient. Patient will be admitted to the hospitalist service. Patient agrees plan of care. 04/28/19 15:56 - Consultations Consultation #1: Hospitalist consult for admission. Hospitalist to admit patient. Bridge orders placed 04/28/19 15:57 Consultation #2: Radiology consulted for a paracentesis. Dr. Calvo agrees to to do procedure. 04/28/19 16:00 ED Medical Decision Making - Lab Data Result diagrams: 04/28/19 13:53 04/28/19 13:53 - Radiology Data Radiology results: report reviewed CT ABDOMEN AND PELVIS WITHOUT CONTRAST HISTORY: Abdominal pressure and distension COMPARISON: None. TECHNIQUE: Axial CT images were obtained through the abdomen and pelvis without IV contrast. Sagittal and coronal reformatted images. All CT scans at this location are performed using CT dose reduction for ALARA by means of automated exposure control. FINDINGS: CT ABDOMEN: Lung Bases: Mild segmental atelectasis is noted at the lung bases. No pleural effusion or infiltrate. Liver: No significant abnormality. Biliary: No significant abnormality. Spleen: No significant abnormality. Unenlarged. Pancreas: No significant abnormality. Adrenals: No significant abnormality. Kidneys: Left nephrectomy changes are suspected. The right kidney is normal size and position. A 5 mm calcification is identified near mid pole which probably represents a nonobstructing calyceal stone. Lymphatics: No lymphadenopathy. Vasculature: Moderate diffuse aortic and iliac calcifications. No aneurysm Bowel/Peritoneum: No significant abnormality. No free air. The appendix is not confidently identified CT PELVIS: : No significant abnormality. Osseous Structures: No significant abnormality. Additional Findings: Massive ascites. IMPRESSION: Massive ascites. Left nephrectomy. Nonobstructing 5 mm stone in the mid right kidney. Bibasilar atelectatic changes. - Medical Decision Making Callie is a 63-year-old male that presents emergency room with complaints of abdominal pain and pressure and abdominal distention. Patient has a history of ascites. Patient's ascites of breath unable to have dialysis. Patient admitted to the hospitalist service. Prior to admission, radiology was counseled for a therapeutic paracentesis. Patient's abdominal CT negative except for ascites. - Differential Diagnosis ascites. Abdominal pressure and distention Critical Care Time: Yes Critical care attestation.: If time is entered above; I have spent that time in minutes in the direct care of this critically ill patient, excluding procedure time. Critical Care Time: 35 minutes ED Disposition Clinical Impression: ESRD (end stage renal disease), Abdominal distention Ascites Qualifiers: Ascites type: other type Qualified Code(s): R18.8 - Other ascites HTN (hypertension) Qualifiers: Hypertension type: essential hypertension Qualified Code(s): I10 - Essential (primary) hypertension Abdominal pain Qualifiers: Abdominal location: generalized Qualified Code(s): R10.84 - Generalized abdominal pain Disposition: 09 OP ADMIT IP TO THIS HOSP Is pt being admited?: Yes Does the pt Need Aspirin: No Condition: Critical Time of Disposition: 15:55
[2019-04-28 14:15] LABS: Basophils % (Auto) 0.3 % (0.0-1.8); Eosinophils # (Auto) 0.1 K/mm3 (0.0-0.4); Eosinophils % (Auto) 1.4 % (0.0-4.3); Hematocrit 31.5 % (35.5-45.6); Lymphocytes # (Auto) 0.9 K/mm3 (1.2-5.4); Lymphocytes % (Auto) 10.9 % (13.4-35.0); Mean Corpuscular HGB Conc 32 % (32-34); Mean Corpuscular Volume 81 fl (84-94); Monocytes # (Auto) 0.7 K/mm3 (0.0-0.8); Monocytes % (Auto) 7.9 % (0.0-7.3); Platelet Count 355 K/mm3 (140-440); Red Blood Count 3.87 M/mm3 (3.65-5.03); Red Cell Distribution Width 18.7 % (13.2-15.2)
[2019-04-28 14:35] LABS: Alanine Aminotransferase 9 units/L (7-56); Albumin 3.2 g/dL (3.9-5); BUN/Creatinine Ratio 4; Blood Urea Nitrogen 27 mg/dL (9-20); Calcium 9.1 mg/dL (8.4-10.2); Hemolysis Index 5
[2019-04-28 14:37] LABS: Bilirubin,Direct < 0.2 mg/dL (0-0.2)
--- NOTE | 2019-04-28 15:12 | Cat Scan Report ---
CT ABDOMEN AND PELVIS WITHOUT CONTRAST HISTORY: Abdominal pressure and distension COMPARISON: None. TECHNIQUE: Axial CT images were obtained through the abdomen and pelvis without IV contrast. Sagittal and coronal reformatted images. All CT scans at this location are performed using CT dose reduction for ALARA by means of automated exposure control. FINDINGS: CT ABDOMEN: Lung Bases: Mild segmental atelectasis is noted at the lung bases. No pleural effusion or infiltrate. Liver: No significant abnormality. Biliary: No significant abnormality. Spleen: No significant abnormality. Unenlarged. Pancreas: No significant abnormality. Adrenals: No significant abnormality. Kidneys: Left nephrectomy changes are suspected. The right kidney is normal size and position. A 5 mm calcification is identified near mid pole which probably represents a nonobstructing calyceal stone. Lymphatics: No lymphadenopathy. Vasculature: Moderate diffuse aortic and iliac calcifications. No aneurysm Bowel/Peritoneum: No significant abnormality. No free air. The appendix is not confidently identified CT PELVIS: : No significant abnormality. Osseous Structures: No significant abnormality. Additional Findings: Massive ascites. IMPRESSION: Massive ascites. Left nephrectomy. Nonobstructing 5 mm stone in the mid right kidney. Bibasilar atelectatic changes. Signer Name: Bart Calvo Jr, MD Signed: 04/28/2019 3:08 PM Workstation Name: [id number]
[2019-04-28] MEDS ORDERED: PERCOCET 5/325 PO PRN (21:55)
[2019-04-28] MEDS ORDERED: SODIUM CHLORIDE FLUSH SYRINGE 10 ML IV PRN (21:57)
[2019-04-28] MEDS ORDERED: ZOFRAN IV PRN (21:57)
[2019-04-28] MEDS ORDERED: TYLENOL PO PRN (21:57)
[2019-04-28] MEDS ORDERED: REGLAN IV PRN (21:57)
[2019-04-28] MEDS ORDERED: DILAUDID IV PRN (21:57)
--- NOTE | 2019-04-28 22:42 | Consultation ---
History of Present Illness - Reason for Consult Consult date: 04/28/19 end stage renal disease - History of Present Illness The patient is a 63 YO male who is well known to our service with history significant for DM type 2, HTN, HLD, Cognitive decline, Tobacco smoking, Hepatitis C, Anemia and ESRD on hemodialysis (TTS) who presented from the dialysis unit with significant abdominal distention and pressure. The abdominal symptoms started few weeks ago and has progressively gotten worse. Patient is a poor historian and unable to get more details. He denies any N, V, D, cp, dizziness, leg swelling or syncope. Nephrology was consulted to manage ESRD. Past History Past Medical History: diabetes, dialysis, ESRD, hepatitis, hypertension, hyperlipidemia, other (Cognitive decline) Medications and Allergies Allergies Allergy/AdvReac Type Severity Reaction Status Date / Time No Known Allergies Allergy Verified 04/12/19 17:10 Home Medications Medication Instructions Recorded Confirmed Last Taken Type AtorvaSTATin 40 mg PO DAILY 12/07/18 04/29/19 04/28/19 History Furosemide [Lasix TAB] 80 mg PO DAILY 12/07/18 04/29/19 04/28/19 History Losartan [Cozaar] 100 mg PO QDAY 12/07/18 04/29/19 04/28/19 History Minoxidil [Loniten] 10 mg PO BID 12/07/18 04/29/19 04/28/19 History Spironolactone [Aldactone] 50 mg PO QDAY 12/07/18 04/29/19 04/14/19 08:00 Hist ory amLODIPine 10 mg PO DAILY 12/07/18 04/29/19 04/28/19 History hydrALAZINE [Apresoline TAB] 100 mg PO TID 12/07/18 04/29/19 04/14/19 08:00 History oxyCODONE /ACETAMINOPHEN [Percocet 1 tab PO Q6HR PRN 7 Days #24 tablet 04/15/19 04/29/19 Unknown Rx 5/325] Active Meds: Active Medications Acetaminophen (Tylenol) 650 mg PO Q4H PRN PRN Reason: Pain MILD(1-3)/Fever >100.5/HOLLY Amlodipine Besylate (Norvasc) 10 mg PO DAILY BRE Atorvastatin Calcium (Lipitor) 40 mg PO DAILY BRE Famotidine (Pepcid) 20 mg PO QAM BRE Furosemide (Lasix) 80 mg PO DAILY BRE Hydralazine HCl (Apresoline) 100 mg PO TID BRE Hydromorphone HCl (Dilaudid) 0.5 mg IV Q3H PRN PRN Reason: Pain , Severe (7-10) Losartan Potassium (Cozaar) 100 mg PO QDAY BRE Metoclopramide HCl (Reglan) 5 mg IV Q6H PRN PRN Reason: Nausea And Vomiting Minoxidil (Loniten) 10 mg PO BID BRE Ondansetron HCl (Zofran) 4 mg IV Q8H PRN PRN Reason: Nausea And Vomiting Oxycodone/Acetaminophen (Percocet 5/325) 1 tab PO Q6H PRN PRN Reason: Pain (4-6) Sodium Chloride (Sodium Chloride Flush Syringe 10 Ml) 10 ml IV BID BRE Sodium Chloride (Sodium Chloride Flush Syringe 10 Ml) 10 ml IV PRN PRN PRN Reason: LINE FLUSH Spironolactone (Aldactone) 50 mg PO QDAY BRE Review of Systems ROS unobtainable: due to mental status Exam - Vital Signs Vital signs: Vital Signs Temp Pulse Resp BP Pulse Ox 98.5 F 96 H 22 146/78 99 04/28/19 13:13 04/28/19 13:13 04/28/19 13:13 04/28/19 13:13 04/28/19 13:13 - General Appearance General appearance: well-developed, well-nourished, appears stated age, other (no distress, R IJ tunnel catheter) EENT: ATNC, PERRL, hearing intact, vision intact Neck: Present: neck supple, trachea midline Respiratory: Clear to Ascultation Heart: regular, S1S2, no murmurs Gastrointestinal: Present: normoactive bowel sounds, distended (tense ascites noted). Absent: tenderness Integumentary: no rash, warm and dry Neurologic: no focal deficit, no asterixis, confused Musculoskeletal: Present: other (no edema, L arm AVF) Results - Lab Results 04/29/19 03:16 04/29/19 03:16 Most recent lab results Calcium 9.1 mg/dL (8.4-10.2) 04/28/19 13:53 Assessment and Plan 1. ESRD: Continue hemodialysis three times a week, MWF schedule. Patient was last dialyzed today. 2. FEN: Monitor lytes. 3. Anemia: Epogen as needed. 4. HTN: BP controlled. Monitor BP. 5. DM-2. 6. Ascites: Paracentesis today. H/o Hep.C.
[2019-04-28] MEDS: NORVASC PO SCH (22:47)
[2019-04-28] MEDS: LASIX PO SCH (22:47)
[2019-04-28] MEDS: ALDACTONE PO SCH (22:47)
[2019-04-28] MEDS: PEPCID PO SCH (22:47)
[2019-04-28] MEDS: COZAAR PO SCH (22:47)
[2019-04-28 22:48] LABS: Total Cells Counted 100 /mm3
[2019-04-28] MEDS: SODIUM CHLORIDE FLUSH SYRINGE 10 ML IV SCH (22:48)
[2019-04-28] MEDS: LONITEN PO SCH (23:11)
[2019-04-29 00:23] LABS: Bilirubin,Urine NEG (Negative); Color,Urine Yellow (Yellow)
[2019-04-29 00:24] LABS: Bacteria,Urine 1+ /HPF (Negative); Blood,Urine SM (Negative); Mucus,Urine FEW /HPF; Urobilinogen,Urine < 2.0 mg/dL (<2.0); WBC,Urine < 1.0 /HPF (0.0-6.0)
[2019-04-29 04:07] LABS: Basophils % (Auto) 0.4 % (0.0-1.8); Eosinophils # (Auto) 0.1 K/mm3 (0.0-0.4); Eosinophils % (Auto) 1.3 % (0.0-4.3); Hematocrit 32.9 % (35.5-45.6); Hemoglobin 10.6 gm/dl (11.8-15.2); Lymphocytes # (Auto) 1.7 K/mm3 (1.2-5.4); Lymphocytes % (Auto) 15.3 % (13.4-35.0); Mean Corpuscular HGB Conc 32 % (32-34); Mean Corpuscular Volume 82 fl (84-94); Monocytes # (Auto) 0.6 K/mm3 (0.0-0.8); Monocytes % (Auto) 5.9 % (0.0-7.3); Platelet Count 364 K/mm3 (140-440); Red Blood Count 4.01 M/mm3 (3.65-5.03); Red Cell Distribution Width 18.3 % (13.2-15.2)
[2019-04-29 04:25] LABS: Albumin 2.7 g/dL (3.9-5); Calcium 8.5 mg/dL (8.4-10.2)
--- NOTE | 2019-04-29 06:53 | Event Note ---
Date: 04/28/19 See H/p in reports Severe ascites paracentesis done by Dr Calvo ESRD Maybe discharged tomorrow after HD if cleared by Nephrology
--- NOTE | 2019-04-29 07:28 | History and Physical Report ---
CHIEF COMPLAINT: Severe abdominal distention for 1 week. HISTORY OF PRESENT ILLNESS: A 63-year-old male with history of end-stage renal disease, hypertension, hyperlipidemia and ascites, comes in for severe abdominal distention and shortness of breath. Because of the abdominal distention, the patient has been also having increasing shortness of breath. Hemodialysis was not done because of his abdominal distention. No fever or chills. PAST MEDICAL HISTORY: As mentioned, hypertension, end-stage renal disease, ascites and type 2 diabetes. PAST SURGICAL HISTORY: AV fistula. FAMILY HISTORY: Hypertension. SOCIAL HISTORY: Smokes over a pack a day. CURRENT MEDICATIONS: Losartan 100 mg once a day, atorvastatin 40 mg once a day, amlodipine 10 mg once a day. REVIEW OF SYSTEMS: Significant for severe ascites and shortness of breath. Otherwise, review of systems negative. PHYSICAL EXAMINATION: GENERAL: Elderly male, cooperative during examination. VITAL SIGNS: Blood pressure is 174/76, temperature 98.9, pulse is 88, respirations 18. HEENT: Unremarkable. Pupils equal and reactive. NECK: Supple, no lymphadenopathy, no thyromegaly. LUNGS: Scattered rales bilaterally. CARDIOVASCULAR: S1, S2 heard. No gallop, no murmur, no rub. Apical impulse in left fifth intercostal space in midclavicular line. ABDOMEN: Severe tense ascites present. Fluid thrill present. EXTREMITIES: 2+ pedal edema present. CENTRAL NERVOUS SYSTEM: Alert and oriented x 4, nonfocal exam. SKIN: Normal. LABORATORY DATA: Significant for white count of 8500, H and H of 10.0 and 31.5, platelet count of 355,000. Sodium is 135, potassium is 4.2, glucose is 425. Hemoglobin A1c is 8.6. Urine negative. ASSESSMENT AND PLAN: 1. Tense severe ascites. Paracentesis done in the Radiology Department. About 3-1/2 liters of fluid drained. Fluid sent for cell count and also protein and glucose levels and LDH. 2. End-stage renal disease, needing dialysis. Continue hemodialysis. 3. Hypertension. Continue antihypertensives in the form of hydralazine and amlodipine and minoxidil and spironolactone. 4. Hyperlipidemia. Continue atorvastatin. 5. Deep venous thrombosis prophylaxis, heparin 5000 q. 12. The patient may be discharged after hemodialysis tomorrow because the patient had ascitic fluid removal on day #1. If cleared by Nephrology, the patient to be discharged. The patient has this problem recurrently. JOB# [id number] ANNIE/MARIE ANDRE
[2019-04-29 07:48] VITALS: BP 105/50
--- NOTE | 2019-04-29 07:48 | Procedure Note ---
Date of procedure: 04/21/19 Pre-op diagnosis: ascites Post-op diagnosis: same Procedure: US paracentesis Findings: massive ascites Anesthesia: local Surgeon: ANDREZ NAPIER Estimated blood loss: none Pathology: list (120cc) Specimen disposition: to lab Condition: stable Disposition: floor
--- NOTE | 2019-04-29 07:53 | Ultrasound Report ---
ULTRASOUND-GUIDED PARACENTESIS HISTORY: abd pain. ascites.. PROCEDURE: The risks (including but not limited to bleeding, infection, and bowel injury) and benefi ts were explained to the patient and informed consent was obtained. A time out procedure was perform ed. Ultrasound was used to evaluate the abdomen and locate the largest ascites fluid pocket. Once the sk in was marked, the procedure site was prepped and draped in the usual sterile fashion and lidocaine w as used for local anesthesia. A skin myonr was made and a 5 Cambodian centesis catheter was placed. The patient was monitored closely throughout the procedure, and a total of 11.1 L of clear yellow fluid was aspirated. 120 cc of fluid was saved for laboratory analysis if needed. The patient tolerated the procedure well with no complications. IMPRESSION: Successful ultrasound-guided paracentesis as described. Signer Name: Bart Calvo Jr, MD Signed: 04/29/2019 7:49 AM Workstation Name: [id number]
[2019-04-29] MEDS ORDERED: APRESOLINE PO SCH (08:00)
[2019-04-29] MEDS: HumaLOG SUB-Q SCH ×2 (08:32→12:34)
[2019-04-29] MEDS: COZAAR PO SCH (10:15)
[2019-04-29] MEDS: LASIX PO SCH (10:15)
[2019-04-29] MEDS: LONITEN PO SCH (10:16)
[2019-04-29] MEDS: NORVASC PO SCH (10:16)
[2019-04-29] MEDS: ALDACTONE PO SCH (10:16)
[2019-04-29] MEDS: PEPCID PO SCH (10:16)
[2019-04-29] MEDS: SODIUM CHLORIDE FLUSH SYRINGE 10 ML IV SCH (10:17)
--- NOTE | 2019-04-29 11:44 | Progress Note ---
Assessment and Plan 1. ESRD: Continue hemodialysis three times a week, MWF schedule. Patient was last dialyzed yesterday. 2. FEN: Monitor lytes. 3. Anemia: Epogen as needed. 4. HTN: BP controlled. Monitor BP. 5. DM-2. 6. Ascites: S/p paracentesis yesterday. H/o Hep.C. Need to GI outpatient. Subjective Date of service: 04/29/19 Interval history: Patient was seen and examined at the bedside. Doing much better. Objective - Vital Signs Vital signs: Vital Signs - 12hr 04/29/19 04/29/19 04/29/19 01:55 02:16 07:22 Temperature 98.7 F 98.5 F Pulse Rate 92 H 89 Pulse Rate [ 88 Right Brachial] Respiratory 18 18 18 Rate Blood Pressure 130/59 105/50 O2 Sat by Pulse 93 95 93 Oximetry 04/29/19 07:39 Temperature Pulse Rate Pulse Rate [ Right Brachial] Respiratory Rate Blood Pressure O2 Sat by Pulse 94 Oximetry - General Appearance General appearance: well-developed, well-nourished, appears stated age, other (no distress, R IJ tunnel catheter) EENT: ATNC, PERRL, hearing intact, vision intact Neck: supple Respiratory: Present: Clear to Ascultation Cardiology: regular, S1S2, no murmurs Gastrointestinal: normoactive bowel sounds, no tenderness, distended Integumentary: no rash, warm and dry Neurologic: no focal deficit, no asterixis, confused Musculoskeletal: other (no edema, L arm AVF) Psychiatric: cooperative - Lab 04/29/19 03:16 04/29/19 03:16 Most recent lab results Calcium 8.5 mg/dL (8.4-10.2) 04/29/19 03:16 Medications & Allergies - Medications Allergies/Adverse Reactions: Allergies No Known Allergies Allergy (Verified 04/12/19 17:10) Home Medications: Home Medications Medication Instructions Recorded Confirmed Last Taken Type AtorvaSTATin 40 mg PO DAILY 12/07/18 04/29/19 04/28/19 History Furosemide [Lasix TAB] 80 mg PO DAILY 12/07/18 04/29/19 04/28/19 History Losartan [Cozaar] 100 mg PO QDAY 12/07/18 04/29/19 04/28/19 History Minoxidil [Loniten] 10 mg PO BID 12/07/18 04/29/19 04/28/19 History Spironolactone [Aldactone] 50 mg PO QDAY 12/07/18 04/29/19 04/14/19 08:00 History amLODIPine 10 mg PO DAILY 12/07/18 04/29/19 04/28/19 History hydrALAZINE [Apresoline TAB] 100 mg PO TID 12/07/18 04/29/19 04/14/19 08:00 History oxyCODONE /ACETAMINOPHEN [Percocet 1 tab PO Q6HR PRN 7 Days #24 tablet 04/15/19 04/29/19 Unknown Rx 5/325 mg] Active Medications: Generic Name Dose Route Start Last Admin Trade Name Freq PRN Reason Stop Dose Admin Acetaminophen 650 mg 04/28/19 21:57 Tylenol PO Q4H PRN Pain MILD(1-3)/Fever >100.5/HOLLY Amlodipine Besylate 10 mg 04/28/19 22:00 04/29/19 10:16 Norvasc PO 10 mg DAILY BRE Administration Atorvastatin Calcium 40 mg 04/28/19 22:00 04/29/19 10:16 Lipitor PO 40 mg DAILY BRE Administration Famotidine 20 mg 04/28/19 22:00 04/29/19 10:16 Pepcid PO 20 mg QAM BRE Administration Furosemide 80 mg 04/28/19 22:00 04/29/19 10:15 Lasix PO 80 mg DAILY BRE Administration Hydralazine HCl 100 mg 04/29/19 08:00 04/29/19 08:46 Apresoline PO 100 mg TID BRE Administration Hydromorphone HCl 0.5 mg 04/28/19 21:57 Dilaudid IV Q3H PRN Pain , Severe (7-10) Insulin Human Lispro 0 unit 04/29/19 07:30 04/29/19 08:32 Humalog SUB-Q 8 unit ACHS BRE Administration Protocol Losartan Potassium 100 mg 04/28/19 22:00 04/29/19 10:15 Cozaar PO 100 mg QDAY BRE Administration Metoclopramide HCl 5 mg 04/28/19 21:57 Reglan IV Q6H PRN Nausea And Vomiting Minoxidil 10 mg 04/28/19 22:00 04/29/19 10:16 Loniten PO 10 mg BID BRE Administration Ondansetron HCl 4 mg 04/28/19 21:57 Zofran IV Q8H PRN Nausea And Vomiting Oxycodone/Acetaminophen 1 tab 04/28/19 21:55 Percocet 5/325 PO Q6H PRN Pain (4-6) Pneumococcal Polyvalent Vaccine 0.5 ml 04/29/19 12:00 Pneumovax 23 IM 04/29/19 12:01 .ONCE ONE Sodium Chloride 10 ml 04/28/19 22:00 04/29/19 10:17 Sodium Chloride Flush Syringe 10 Ml IV 10 ml BID BRE Administration Sodium Chloride 10 ml 04/28/19 21:57 Sodium Chloride Flush Syringe 10 Ml IV PRN PRN LINE FLUSH Spironolactone 50 mg 04/28/19 22:00 04/29/19 10:16 Aldactone PO 50 mg QDAY BRE Administration
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
[2019-04-29] MEDS ORDERED: PNEUMOVAX 23 IM ONE (12:00)
[2019-05-06 15:49] LABS: Amylase,Body Fluid 42; LDH,Body Fluid 126; Total Protein,Body Fluid 4.9 (15.0-45.0)
== END 2019-04-29 14:02 | disposition home or self-care (01) ==
LOC: ED 12:46 → 2B-ACE 15:58
PROVIDERS: ADMIT Internal Medicine; ATTEND Internal Medicine
DX: R18.8 Other ascites (principal); R14.0 Abdominal distension (gaseous); I12.0 Hypertensive chronic kidney disease with stage 5 chronic kidney disease or end stage renal disease; N18.6 End stage renal disease; E11.22 Type 2 diabetes mellitus with diabetic chronic kidney disease; D63.1 Anemia in chronic kidney disease; E78.5 Hyperlipidemia, unspecified; F17.200 Nicotine dependence, unspecified, uncomplicated; Z86.19 Personal history of other infectious and parasitic diseases
CPT/HCPCS: 36415; 49083; 74176; 80048; 80053; 80076; 81001; 82150; 82947; 82962; 83036; 83605; 83690; 84160; 85025; 89051; 90471; 90732; 96372; 97162; 99291; A9270; G0378; J1815

== ENCOUNTER 2019-05-21 15:36 | Inpatient (IN) | payer MEDICARE ==
[2019-05-21 16:23] LABS: Basophils # (Auto) 0.1 K/mm3 (0.0-0.1); Basophils % (Auto) 1.1 % (0.0-1.8); Eosinophils # (Auto) 0.1 K/mm3 (0.0-0.4); Eosinophils % (Auto) 1.1 % (0.0-4.3); Hematocrit 42.2 % (35.5-45.6); Hemoglobin 13.3 gm/dl (11.8-15.2); Lymphocytes # (Auto) 0.8 K/mm3 (1.2-5.4); Lymphocytes % (Auto) 14.8 % (13.4-35.0); Mean Corpuscular HGB Conc 32 % (32-34); Mean Corpuscular Volume 86 fl (84-94); Monocytes # (Auto) 0.5 K/mm3 (0.0-0.8); Platelet Count 229 K/mm3 (140-440); Red Blood Count 4.93 M/mm3 (3.65-5.03); Red Cell Distribution Width 17.7 % (13.2-15.2)
[2019-05-21 16:44] LABS: INR 0.89 (0.87-1.13)
[2019-05-21 17:02] LABS: Albumin 2.7 g/dL (3.9-5); Calcium 8.3 mg/dL (8.4-10.2)
--- NOTE | 2019-05-21 17:10 | XRay Report ---
CHEST 1 VIEW INDICATION / CLINICAL INFORMATION: sob. COMPARISON: None available. FINDINGS: SUPPORT DEVICES: Right venous access catheter tip projects over the right atrium. HEART / MEDIASTINUM: No significant abnormality. LUNGS / PLEURA: Mild diffuse interstitial disease and basilar subsegmental atelectasis. Poor degree o f inspiration. No pneumothorax. ADDITIONAL FINDINGS: No significant additional findings. IMPRESSION: 1. Mild interstitial disease most likely pulmonary edema 2. Bibasilar subsegmental atelectasis. Signer Name: Hossein Morgan MD Signed: 05/21/2019 5:06 PM Workstation Name: [id number]
--- NOTE | 2019-05-21 17:11 | Emergency Department Report ---
ED Abdominal Pain HPI - General Chief Complaint: Abdominal Pain Stated Complaint: SALONI Time Seen by Provider: 05/21/19 16:06 Source: patient, EMS Mode of arrival: Stretcher Limitations: No Limitations - History of Present Illness Initial Comments: 63-year-old male presents to ED with abdominal distention and shortness of breath 1 week. Patient has history of ESRD, ascites. Patient states approximately 3 weeks ago he underwent first procedure for paracentesis. Patient is unsure of the cause of his ascites, he believes it is due to his end- stage renal disease. Patient is on [facility] dialysis schedule, states he was dialyzed today. Patient reports abdominal discomfort due to the distention. Patient denies fever, nausea, vomiting. Renal: Bg GORDON Complaint: abdominal pain -: week(s) (1) Location: diffuse Radiation: none Severity: moderate Severity scale (0 -10): 0 Quality: aching Consistency: constant Improves With: nothing Worsens With: nothing Associated Symptoms: denies: nausea, vomiting, diarrhea, fever - Related Data Home Medications Medication Instructions Recorded Confirmed Last Taken AtorvaSTATin 40 mg PO DAILY 12/07/18 04/29/19 04/28/19 Furosemide [Lasix TAB] 80 mg PO DAILY 12/07/18 04/29/19 04/28/19 Losartan [Cozaar] 100 mg PO QDAY 12/07/18 04/29/19 04/28/19 Minoxidil [Loniten] 10 mg PO BID 12/07/18 04/29/19 04/28/19 Spironolactone [Aldactone] 50 mg PO QDAY 12/07/18 04/29/19 04/14/19 08:00 amLODIPine 10 mg PO DAILY 12/07/18 04/29/19 04/28/19 hydrALAZINE [Apresoline TAB] 100 mg PO TID 12/07/18 04/29/19 04/14/19 08:00 Previous Rx's Medication Instructions Recorded Last Taken Type oxyCODONE /ACETAMINOPHEN [Percocet 1 tab PO Q6HR PRN 7 Days #24 tablet 04/15/19 Unknown Rx 5/325 mg] Allergies Allergy/AdvReac Type Severity Reaction Status Date / Time No Known Allergies Allergy Verified 04/12/19 17:10 ED Review of Systems ROS: Stated complaint: SALONI Other details as noted in HPI Comment: All other systems reviewed and negative Constitutional: denies: chills, fever Respiratory: shortness of breath Cardiovascular: denies: chest pain Gastrointestinal: abdominal pain. denies: nausea, vomiting, diarrhea ED Past Medical Hx - Past Medical History Previous Medical History?: Yes Hx Hypertension: Yes Hx Heart Attack/AMI: No Hx Congestive Heart Failure: No Hx Diabetes: Yes Hx Renal Disease: Yes (M, W, F) Hx Headaches / Migraines: No Hx Asthma: No Hx COPD: No Hx Dementia: No - Surgical History Past Surgical History?: No Hx Coronary Stent: No - Social History Smoking Status: Current Every Day Smoker Substance Use Type: None - Medications Home Medications: Home Medications Medication Instructions Recorded Confirmed Last Taken Type AtorvaSTATin 40 mg PO DAILY 12/07/18 04/29/19 04/28/19 History Furosemide [Lasix TAB] 80 mg PO DAILY 12/07/18 04/29/19 04/28/19 History Losartan [Cozaar] 100 mg PO QDAY 12/07/18 04/29/19 04/28/19 History Minoxidil [Loniten] 10 mg PO BID 12/07/18 04/29/19 04/28/19 History Spironolactone [Aldactone] 50 mg PO QDAY 12/07/18 04/29/19 04/14/19 08:00 History amLODIPine 10 mg PO DAILY 12/07/18 04/29/19 04/28/19 History hydrALAZINE [Apresoline TAB] 100 mg PO TID 12/07/18 04/29/19 04/14/19 08:00 History oxyCODONE /ACETAMINOPHEN [Percocet 1 tab PO Q6HR PRN 7 Days #24 tablet 04/15/19 04/29/19 Unknown Rx 5/325 mg] ED Physical Exam - General Limitations: No Limitations General appearance: alert, in no apparent distress - Head Head exam: Present: atraumatic, normocephalic - Eye Eye exam: Present: normal appearance, PERRL, EOMI - ENT ENT exam: Present: mucous membranes moist - Neck Neck exam: Present: normal inspection - Respiratory Respiratory exam: Present: rales. Absent: respiratory distress - Cardiovascular Cardiovascular Exam: Present: normal rhythm, tachycardia - GI/Abdominal GI/Abdominal exam: Present: distended (severe), organomegaly. Absent: tenderness - Extremities Exam Extremities exam: Present: other (2+ pitting edema to BLE) - Neurological Exam Neurological exam: Present: alert, oriented X3 - Psychiatric Psychiatric exam: Present: normal affect, normal mood - Skin Skin exam: Present: warm, dry, intact, normal color ED Course Vital Signs 05/21/19 05/21/19 05/21/19 15:42 15:52 16:00 Temperature 98.6 F Pulse Rate 107 H 106 H 103 H Respiratory 23 13 23 Rate Blood Pressure 137/80 137/80 O2 Sat by Pulse 96 96 Oximetry 05/21/19 05/21/19 05/21/19 16:15 16:30 16:45 Temperature Pulse Rate 109 H 102 H 99 H Respiratory 16 20 20 Rate Blood Pressure 144/81 144/81 141/77 O2 Sat by Pulse Oximetry 05/21/19 05/21/19 05/21/19 17:00 17:15 17:30 Temperature Pulse Rate 100 H 97 H 101 H Respiratory 16 17 18 Rate Blood Pressure 141/77 147/78 147/78 O2 Sat by Pulse Oximetry 05/21/19 05/21/19 05/21/19 17:48 18:00 18:16 Temperature Pulse Rate 96 H 100 H 103 H Respiratory 21 26 H 15 Rate Blood Pressure 141/77 152/85 152/85 O2 Sat by Pulse Oximetry 05/21/19 18:30 Temperature Pulse Rate 99 H Respiratory 18 Rate Blood Pressure 140/82 O2 Sat by Pulse Oximetry - Consultations Consultation #1: 05/21/19 17:38 Spoke w/ Dr Pederson. Will see pt in AM ED Medical Decision Making - Lab Data Result diagrams: 05/21/19 16:03 05/21/19 16:03 - Radiology Data Radiology results: report reviewed, image reviewed - Medical Decision Making 63-year-old male presents to ED with abdominal distention and shortness of breath. Patient has severely distended abdomen with ascites present on exam. Denies nontender. Patient is afebrile. Chest x-ray does show some pulmonary edema, patient has rales on exam. O2 sats are normal. 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 Will admit to hospitalist for further evaluation and paracentesis. - Differential Diagnosis ascites, pulm edema, pneumonia Critical care attestation.: If time is entered above; I have spent that time in minutes in the direct care of this critically ill patient, excluding procedure time. ED Disposition Clinical Impression: ESRD (end stage renal disease), Pulmonary edema Ascites Qualifiers: Ascites type: other type Qualified Code(s): R18.8 - Other ascites Disposition: OP ADMIT IP TO THIS HOSP Is pt being admited?: Yes Condition: Stable Time of Disposition: 17:38
--- NOTE | 2019-05-21 17:38 | History and Physical Report ---
History of Present Illness Chief complaint: My stomach is really bloated History of present illness: 63 YO Male with ESRD on HD(M,W,F), HTN, HLD, Dementia, Nicotine Dependence presents to ED for evaluation. Pt states that he has experienced abdominal distention and shortness of breath over the past 2 weeks, with progressively worsening symptoms over the past 1 week. Pt underwent routine dialysis today without improvement in symptoms. EMS notified after dialysis, and upon arrival the patient was found to be in distress and transported to [facility]. Pt seen and evaluated in ED and found to have ESRD, Ascites complicated by pleural Effusion. Pt admitted to [facility] unit. Nephrology consulted in ED. IR consulted in ED for pa racentesis. CT Abdomen/Pelvis ordered at admission and is pending at time of admission. Pt denies fever, chills, CP, Palpitation, NVD, Trauma, BRBPR, Hemoptysis, Skin rash, Productive cough or recent ill contacts. Prior admission on 04/28/19 reviewed. All listed medication reconciled at time of admission. Past History Past Medical History: ESRD, hypertension, hyperlipidemia, other (Dementia) Past Surgical History: Other (dialysis access) Social history: , lives with family, smoking. denies: alcohol abuse, prescription drug abuse, IV drug use Family history: diabetes, hypertension Medications and Allergies Allergies Allergy/AdvReac Type Severity Reaction Status Date / Time No Known Allergies Allergy Verified 04/12/19 17:10 Home Medications Medication Instructions Recorded Confirmed Last Taken Type AtorvaSTATin 40 mg PO DAILY 12/07/18 04/29/19 04/28/19 History Furosemide [Lasix TAB] 80 mg PO DAILY 12/07/18 04/29/19 04/28/19 History Losartan [Cozaar] 100 mg PO QDAY 12/07/18 04/29/19 04/28/19 History Minoxidil [Loniten] 10 mg PO BID 12/07/18 04/29/19 04/28/19 History Spironolactone [Aldactone] 50 mg PO QDAY 12/07/18 04/29/19 04/14/19 08:00 History amLODIPine 10 mg PO DAILY 12/07/18 04/29/19 04/28/19 History hydrALAZINE [Apresoline TAB] 100 mg PO TID 12/07/18 04/29/19 04/14/19 08:00 History oxyCODONE /ACETAMINOPHEN [Percocet 1 tab PO Q6HR PRN 7 Days #24 tablet 04/15/19 04/29/19 Unknown Rx 5/325 mg] Review of Systems Constitutional: no weight loss, no weight gain, no fever, no chills Ears, nose, mouth and throat: no ear pain, no decreased hearing, no nasal discharge, no sinus pressure Cardiovascular: shortness of breath, no chest pain, no orthopnea, no p alpitations, no edema Respiratory: no cough, no cough with sputum, no excessive sputum, no hemoptysis, no dyspnea on exertion, no congestion Gastrointestinal: other (Abdominal distention), no nausea, no vomiting, no diarrhea, no constipation Genitourinary Male: no hematuria, no flank pain, no discharge, no urinary frequency, no urinary hesitancy, no nocturia Rectal: no pain, no incontinence, no bleeding, no itching, no discharge Musculoskeletal: no neck stiffness, no neck pain, no shooting arm pain, no arm numbness/tingling, no low back pain, no shooting leg pain, no leg numbness/tingling Integumentary: no rash, no pruritis, no redness, no sores, no wounds, no boils Neurological: no head injury, no transient paralysis, no weakness, no parathesias, no numbness, no tingling, no seizures Psychiatric: no anxiety, no memory loss, no change in sleep habits, no sleep disturbances, no insomnia, no change in libido Endocrine: no cold intolerance, no heat intolerance, no polyphagia, no excessive thirst, no polydipsia, no polyuria, no nocturia Hematologic/Lymphatic: no easy bruising, no easy bleeding, no lymphadenopathy, no lymphedema Allergic/Immunologic: no urticaria, no allergic rhinitis, no wheezing, no persistent infections, no anaphylaxis, no angioedema Exam - Constitutional Vitals: Temp Pulse Resp BP Pulse Ox 98.6 F 107 H 23 137/80 96 05/21/19 15:42 05/21/19 15:42 05/21/19 16:00 05/21/19 15:42 05/21/19 16:00 General appearance: Present: mild distress - EENT Eyes: Present: PERRL ENT: hearing intact, clear oral mucosa - Neck Neck: Present: supple, normal ROM - Respiratory Respiratory effort: labored Respiratory: bilateral: diminished - Cardiovascular Heart Sounds: Present: S1 & S2. Absent: rub, click - Extremities Extremities: pulses symmetrical, No edema Peripheral Pulses: within normal limits - Abdominal General gastrointestinal: Present: soft, distended, other (positive fluid wave, No rebound, No guarding, No peritoneal signs). Absent: absent bowel sounds, hepatomegaly, splenomegaly Male genitourinary: Present: normal - Integumentary Integumentary: Present: clear, warm, dry - Musculoskeletal Musculoskeletal: generalized weakness - Psychiatric Psychiatric: appropriate mood/affect, intact judgment & insight - Neurologic Neurologic: CNII-XII intact, moves all extremities Results - Labs CBC & Chem 7: 05/21/19 16:03 05/21/19 16:03 Labs: Abnormal lab results 05/21/19 05/21/19 05/21/19 Range/Units 16:03 16:03 16:21 MCH 27 L (28-32) pg RDW 17.7 H (13.2-15.2) % [place] % (Auto) 8.0 H (0.0-7.3) % Lymph # 0.8 L (1.2-5.4) K/mm3 Seg Neutrophils % 75.0 H (40.0-70.0) % PT 11.8 L (12.2-14.9) Sec. Sodium 135 L (137-145) mmol/L Chloride 96.4 L (98-107) mmol/L Creatinine 4.7 H (0.8-1.5) mg/dL Glucose 259 H (75-100) mg/dL Calcium 8.3 L (8.4-10.2) mg/dL Albumin 2.7 L (3.9-5) g/dL Lipase 62 H (13-60) units/L Assessment and Plan - Patient Problems (1) ESRD (end stage renal disease) Current Visit: Yes Status: Acute Plan to address problem: Nephrology consulted in ED for dialysis, monitor uop q shift, avoid nephrotoxic agents, supportive care. (2) Ascites Current Visit: No Status: Acute Qualifiers: Ascites type: other type Qualified Code(s): R18.8 - Other ascites Plan to address problem: IR consulted for paracentesis, CT ABdomen pelvis, serial abdominal exam. (3) HLD (hyperlipidemia) Current Visit: No Status: Acute Qualifiers: Hyperlipidemia type: mixed hyperlipidemia Qualified Code(s): E78.2 - Mixed hyperlipidemia Plan to address problem: lowfat, low cholesterol diet, statin therapy as indicated. (4) HTN (hypertension) Current Visit: No Status: Acute Qualifiers: Hypertension type: essential hypertension Qualified Code(s): I10 - Essential (primary) hypertension Plan to address problem: Monitor bp q shift, continue medical management. (5) Nicotine dependence Current Visit: No Status: Acute Qualifiers: Nicotine product type: cigarettes Substance use status: in withdrawal Qualified Code(s): F17.213 - Nicotine dependence, cigarettes, with withdrawal Plan to address problem: smoking cessation counseling +15min, supportive care (6) DVT prophylaxis Current Visit: No Status: Acute Plan to address problem: SCD to BLE while in bed
[2019-05-21] MEDS ORDERED: ALBUTEROL 2.5 MG/3 ML NEBU IH PRN (17:39)
[2019-05-21] MEDS ORDERED: ACETAMINOPHEN 325 MG TAB PO PRN (17:39)
[2019-05-21] MEDS ORDERED: oxyCODONE /ACETAMINOPHEN 5-325MG TAB PO PRN (17:39)
[2019-05-21] MEDS ORDERED: PNEUMOCOCCAL 23 Valent 0.5 ML VIAL IM ONE (20:32)
[2019-05-21] MEDS ORDERED: FLU VACC QUAD 2019-20 (3 YR UP)/PF 60 MCG/0.5 ML SYRINGE IM ONE (20:32)
[2019-05-22 05:39] LABS: Basophils % (Auto) 0.7 % (0.0-1.8); Eosinophils # (Auto) 0.1 K/mm3 (0.0-0.4); Eosinophils % (Auto) 1.3 % (0.0-4.3); Hematocrit 36.3 % (35.5-45.6); Hemoglobin 11.5 gm/dl (11.8-15.2); Lymphocytes % (Auto) 20.5 % (13.4-35.0); Mean Corpuscular HGB Conc 32 % (32-34); Mean Corpuscular Volume 84 fl (84-94); Monocytes # (Auto) 0.5 K/mm3 (0.0-0.8); Monocytes % (Auto) 9.9 % (0.0-7.3); Platelet Count 229 K/mm3 (140-440); Red Cell Distribution Width 17.2 % (13.2-15.2)
[2019-05-22 05:53] LABS: Albumin 2.4 g/dL (3.9-5); Calcium 7.9 mg/dL (8.4-10.2)
--- NOTE | 2019-05-22 09:02 | Cat Scan Report ---
CT ABDOMEN AND PELVIS WITHOUT CONTRAST INDICATION: ascites. TECHNIQUE: Axial CT images were obtained through the abdomen and pelvis without IV contrast. All CT scans at [facility] location are performed using CT dose reduction for ALARA by means of automated exposure control. COMPARISON: CT abdomen pelvis 04/28/2019 FINDINGS: LOWER CHEST: Streaky moderate bibasilar atelectasis is again noted. LIVER: No significant abnormality. GALLBLADDER: No significant abnormality. BILE DUCTS: No significant abnormality. PANCREAS: No significant abnormality. SPLEEN: Small, unchanged. No significant abnormality. ADRENALS: No significant abnormality. RIGHT KIDNEY and URETER: Nonobstructing 5 mm stone within central portion of right kidney versus less likely vascular calcification, unchanged LEFT KIDNEY and URETER: Surgically absent. STOMACH and SMALL BOWEL: No significant abnormality. COLON: No significant abnormality. APPENDIX: No significant abnormality. PERITONEUM: Massive amount of ascites, unchanged. No free air. No fluid collection. LYMPH NODES: No significant adenopathy. AORTA and ARTERIES: Extensive vascular calcifications nonaneurysmal abdominal aorta and iliac arterie s, unchanged IVC and VEINS: No significant abnormality. URINARY BLADDER: No significant abnormality. REPRODUCTIVE ORGANS: No significant abnormality. ADDITIONAL FINDINGS: Mild body wall edema characteristic for anasarca SKELETAL SYSTEM: Osteopenia with old T12 compression fracture, unchanged IMPRESSION: 1. Massive amount of abdominal ascites is again noted. 2. Left nephrectomy and probable nonobstructing right intrarenal 5 mm stone, unchanged. 3. Moderate bibasilar atelectasis again noted. Signer Name: Sanjay Watson MD Signed: 05/22/2019 8:58 AM Workstation Name: [id number]
--- NOTE | 2019-05-22 10:52 | Consultation ---
History of Present Illness - Reason for Consult Consult date: 05/22/19 Ascites - History of Present Illness Patient with a history of end-stage renal disease on hemodialysis through a right chest wall tunneled hemodialysis catheter. The patient states that 3 weeks ago he underwent surgical creation of a left upper arm brachiocephalic fistula. He presents with abdominal distention and shortness of breath. Chest x-ray demonstrates pulmonary edema. His CT of the abdomen demonstrates a small micronodular appearing liver, ascites, diffuse atherosclerotic disease including near occlusive atherosclerotic disease involving his right common iliac artery with approximately 70% stenosis involving his left common iliac artery. Patient states that 3 weeks ago he underwent her centesis for the first time. He has not yet been evaluated to determine the etiology of this. Past History Past Medical History: ESRD, hypertension, hyperlipidemia, other (Dementia) Past Surgical History: Other (dialysis access) Social history: , lives with family, smoking. denies: alcohol abuse, prescription drug abuse, IV drug use Family history: diabetes, hypertension Medications and Allergies Allergies Allergy/AdvReac Type Severity Reaction Status Date / Time No Known Allergies Allergy Verified 04/12/19 17:10 Home Medications Medication Instructions Recorded Confirmed Last Taken Type AtorvaSTATin 40 mg PO DAILY 12/07/18 05/22/19 04/28/19 History Furosemide [Lasix TAB] 80 mg PO DAILY 12/07/18 05/22/19 04/28/19 History Losartan [Cozaar] 100 mg PO QDAY 12/07/18 05/22/19 04/28/19 History Minoxidil [Loniten] 10 mg PO BID 12/07/18 05/22/19 04/28/19 History Spironolactone [Aldactone] 50 mg PO QDAY 12/07/18 05/22/19 04/14/19 08:00 History amLODIPine 10 mg PO DAILY 12/07/18 05/22/19 04/28/19 History hydrALAZINE [Apresoline TAB] 100 mg PO TID 12/07/18 05/22/19 04/14/19 08:00 History oxyCODONE /ACETAMINOPHEN [Percocet 1 tab PO Q6HR PRN 7 Days #24 tablet 04/15/19 05/22/19 Unknown Rx 5/325 mg] Active Meds: Active Medications Acetaminophen (Tylenol) 650 mg PO Q4H PRN PRN Reason: Pain MILD(1-3)/Fever >100.5/HOLLY Albuterol (Proventil) 2.5 mg IH Q4HRT PRN PRN Reason: Shortness Of Breath Ondansetron HCl (Zofran) 4 mg IV Q8H PRN PRN Reason: Nausea And Vomiting Oxycodone/Acetaminophen (Percocet 5/325) 1 tab PO Q6H PRN PRN Reason: Pain, Moderate (4-6) Sodium Chloride (Sodium Chloride Flush Syringe 10 Ml) 10 ml IV BID BRE Last Admin: 05/21/19 22:38 Dose: 10 ml Documented by: Sodium Chloride (Sodium Chloride Flush Syringe 10 Ml) 10 ml IV PRN PRN PRN Reason: LINE FLUSH Review of Systems All systems: negative Exam - Constitutional Vitals: Temp Pulse Resp BP Pulse Ox 98.7 F 89 18 153/71 95 05/22/19 07:21 05/22/19 07:21 05/22/19 07:21 05/22/19 07:21 05/22/19 07:21 General appearance: Present: no acute distress - EENT Eyes: Present: EOM intact ENT: hearing intact - Neck Neck: Present: supple, normal ROM - Respiratory Respiratory effort: normal - Abdominal General gastrointestinal: Present: soft, distended Male genitourinary: Present: deferred - Rectal Rectal Exam: deferred - Psychiatric Psychiatric: appropriate mood/affect, cooperative Results - Labs CBC & Chem 7: 05/22/19 05:05 05/22/19 05:05 Labs: Abnormal lab results 05/21/19 05/21/19 05/21/19 Range/Units 16:03 16:03 16:21 Hgb (11.8-15.2) gm/dl MCH 27 L (28-32) pg RDW 17.7 H (13.2-15.2) % [place] % (Auto) 8.0 H (0.0-7.3) % Lymph # 0.8 L (1.2-5.4) K/mm3 Seg Neutrophils % 75.0 H (40.0-70.0) % PT 11.8 L (12.2-14.9) Sec. Sodium 135 L (137-145) mmol/L Chloride 96.4 L (98-107) mmol/L BUN (9-20) mg/dL Creatinine 4.7 H (0.8-1.5) mg/dL Glucose 259 H (75-100) mg/dL POC Glucose (70-105) Calcium 8.3 L (8.4-10.2) mg/dL Albumin 2.7 L (3.9-5) g/dL Lipase 62 H (13-60) units/L 05/22/19 05/22/19 05/22/19 Range/Units 05:05 05:05 07:42 Hgb 11.5 L (11.8-15.2) gm/dl MCH 27 L (28-32) pg RDW 17.2 H (13.2-15.2) % [place] % (Auto) 9.9 H (0.0-7.3) % Lymph # 1.0 L (1.2-5.4) K/mm3 Seg Neutrophils % (40.0-70.0) % PT (12.2-14.9) Sec. Sodium (137-145) mmol/L Chloride (98-107) mmol/L BUN 27 H (9-20) mg/dL Creatinine 6.2 H (0.8-1.5) mg/dL Glucose 201 H (75-100) mg/dL POC Glucose 209 H (70-105) Calcium 7.9 L (8.4-10.2) mg/dL Albumin 2.4 L (3.9-5) g/dL Lipase (13-60) units/L - Imaging and Cardiology Chest x-ray: image reviewed CT scan - abdomen: image reviewed Assessment and Plan Patient with a history of shortness of breath and pulmonary edema demonstrated on chest x-ray. The patient's stepdown nurse will evaluate him today. The patient may require additional volume removal to reduce his pulmonary edema and improve his respiratory status. At time of examination, the patient was breathing comfortably. Additionally, the patient has a small micronodular appearing liver and ascites. The patient will need to be evaluated by GI to determine the etiology of his new onset ascites.
[2019-05-22] MEDS ORDERED: FLU VACC QUAD 2019-20 (3 YR UP)/PF 60 MCG/0.5 ML SYRINGE IM ONE (12:00)
[2019-05-22] MEDS ORDERED: PNEUMOCOCCAL 23 Valent 0.5 ML VIAL IM ONE (12:00)
--- NOTE | 2019-05-22 13:27 | Consultation ---
History of Present Illness - Reason for Consult Consult date: 05/22/19 end stage renal disease - History of Present Illness The patient is a 63 YO male who is well known to our service with history significant for DM type 2, HTN, HLD, Cognitive decline, Tobacco smoking, Hepatitis C, Anemia, ESRD on hemodialysis (TTS) and Ascites who presented to [facility] ED yesterday from the dialysis unit with abdominal distention and need for paracentesis. Patient is a poor historian and unable to get more details. He denies any N, V, D, cp, dizziness, leg swelling or syncope. He completed hemodialysis yesterday. Nephrology was consulted to manage ESRD. Past History Past Medical History: anemia, diabetes, dialysis, ESRD, hypertension, hyperlipidemia, other (Dementia, Ascites) Past Surgical History: Other (dialysis access) Social history: , lives with family, smoking. denies: alcohol abuse, prescription drug abuse, IV drug use Family history: diabetes, hypertension Medications and Allergies Allergies Allergy/AdvReac Type Severity Reaction Status Date / Time No Known Allergies Allergy Verified 04/12/19 17:10 Home Medications Medication Instructions Recorded Confirmed Last Taken Type AtorvaSTATin 40 mg PO DAILY 12/07/18 05/22/19 04/28/19 History Furosemide [Lasix TAB] 80 mg PO DAILY 12/07/18 05/22/19 04/28/19 History Losartan [Cozaar] 100 mg PO QDAY 12/07/18 05/22/19 04/28/19 History Minoxidil [Loniten] 10 mg PO BID 12/07/18 05/22/19 04/28/19 History Spironolactone [Aldactone] 50 mg PO QDAY 12/07/18 05/22/19 04/14/19 08:00 History amLODIPine 10 mg PO DAILY 12/07/18 05/22/19 04/28/19 History hydrALAZINE [Apresoline TAB] 100 mg PO TID 12/07/18 05/22/19 04/14/19 08:00 History oxyCODONE /ACETAMINOPHEN [Percocet 1 tab PO Q6HR PRN 7 Days #24 tablet 04/15/19 05/22/19 Unknown Rx 5/325 mg] Insulin NPH Hum/Reg Insulin Hm 15 unit SQ DAILY 05/22/19 05/22/19 Unknown History [HumuLIN 70-30 Vial] Active Meds: Active Medications Acetaminophen (Tylenol) 650 mg PO Q4H PRN PRN Reason: Pain MILD(1-3)/Fever >100.5/HOLLY Albuterol (Proventil) 2.5 mg IH Q4HRT PRN PRN Reason: Shortness Of Breath Ondansetron HCl (Zofran) 4 mg IV Q8H PRN PRN Reason: Nausea And Vomiting Oxycodone/Acetaminophen (Percocet 5/325) 1 tab PO Q6H PRN PRN Reason: Pain, Moderate (4-6) Sodium Chloride (Sodium Chloride Flush Syringe 10 Ml) 10 ml IV BID BRE Last Admin: 05/22/19 12:47 Dose: 10 ml Documented by: Sodium Chloride (Sodium Chloride Flush Syringe 10 Ml) 10 ml IV PRN PRN PRN Reason: LINE FLUSH Review of Systems ROS unobtainable: due to mental status Exam - Vital Signs Vital signs: Vital Signs Temp Pulse Resp BP Pulse Ox 98.6 F 107 H 23 137/80 96 05/21/19 15:42 05/21/19 15:42 05/21/19 15:42 05/21/19 15:42 05/21/19 15:42 - General Appearance General appearance: well-developed, well-nourished, appears stated age, other (not in distress, R IJ tunnel catheter) EENT: ATNC, PERRL, mucous membranes moist, hearing intact, vision intact Neck: Present: neck supple, trachea midline Respiratory: Rales Heart: regular, S1S2, no murmurs Gastrointestinal: Present: normoactive bowel sounds, distended. Absent: tenderness Integumentary: no rash, warm and dry Neurologic: no focal deficit, no asterixis, confused Musculoskeletal: Present: other (no edema, L arm AVF) Psychiatric: cooperative Results - Lab Results 05/22/19 05:05 05/22/19 05:05 Most recent lab results Calcium 7.9 mg/dL (8.4-10.2) L 05/22/19 05:05 Assessment and Plan 1. ESRD: Continue hemodialysis three times a week, MWF schedule. Patient was last dialyzed yesterday. 2. FEN: Volume overload, Isolated UF today. Monitor lytes. 3. Anemia: Epogen as needed. 4. HTN: BP controlled. Monitor BP. 5. DM-2. 6. Ascites: Need Paracentesis. IR on board. 7. Hepatitis C.
[2019-05-22] MEDS: hydrALAZINE 100 MG TAB PO SCH ×2 (14:00→21:26)
[2019-05-22] MEDS ORDERED: SODIUM CHLORIDE 0.9% 100 ML IV PRN (14:01)
[2019-05-22] MEDS ORDERED: oxyCODONE /ACETAMINOPHEN 5-325MG TAB PO PRN (14:07)
--- NOTE | 2019-05-22 14:07 | Progress Note ---
Assessment and Plan (1) ESRD (end stage renal disease) Current Visit: Yes Status: Acute Plan to address problem: Nephrology consulted in ED for dialysis, monitor uop q shift, avoid nephrotoxic agents, supportive care. (2) Ascites Current Visit: No Status: Acute Qualifiers: Ascites type: other type Qualified Code(s): R18.8 - Other ascites Plan to address problem: IR consulted for paracentesis, CT ABdomen pelvis, serial abdominal exam. (3) HLD (hyperlipidemia) Current Visit: No Status: Acute Qualifiers: Hyperlipidemia type: mixed hyperlipidemia Qualified Code(s): E78.2 - Mixed hyperlipidemia Plan to address problem: lowfat, low cholesterol diet, statin therapy as indicated. (4) HTN (hypertension) Current Visit: No Status: Acute Qualifiers: Hypertension type: essential hypertension Qualified Code(s): I10 - Essential (primary) hypertension Plan to address problem: Monitor bp q shift, continue medical management. (5) Nicotine dependence Current Visit: No Status: Acute Qualifiers: Nicotine product type: cigarettes Substance use status: in withdrawal Qualified Code(s): F17.213 - Nicotine dependence, cigarettes, with withdrawal Plan to address problem: smoking cessation counseling +15min, supportive care (6)IDDM Cont Home insulin and coverage (7) DVT prophylaxis Current Visit: No Status: Acute Plan to address problem: SCD to BLE while in bed Subjective Date of service: 05/22/19 Principal diagnosis: Ascites,ESRD,CHF Interval history: 63 YO Male with ESRD on HD(M,W,F), HTN, HLD, Dementia, Nicotine Dependence presents to ED for evaluation. Pt states that he has experienced abdominal distention and shortness of breath over the past 2 weeks, with progressively worsening symptoms over the past 1 week. Pt underwent routine dialysis today without improvement in symptoms. EMS notified after dialysis, and upon arrival the patient was found to be in distress and transported to [facility]. Pt seen and evaluated in ED and found to have ESRD, Ascites complicated by pleural Effusion. Pt admitted to [facility] unit. Nephrology consulted in ED. IR consulted in ED for paracentesis. Pt denies fever, chills, CP, Palpitation, NVD, Trauma, BRBPR, Hemoptysis, Skin rash, Productive cough or recent ill contacts. Prior admission on 04/28/19 reviewed. All listed medication reconciled at time of admission. Interval history SOB better,Abdominal distension persists. Objective - Constitutional Vitals: Vital Signs - 12hr 05/22/19 05/22/19 05/22/19 02:16 07:10 07:21 Temperature 98.9 F 98.7 F Pulse Rate 94 H 89 Pulse Rate [ From Monitor] Respiratory 18 18 Rate Blood Pressure 146/75 153/71 O2 Sat by Pulse 94 93 95 Oximetry 05/22/19 05/22/19 05/22/19 12:00 12:57 13:07 Temperature 98.6 F Pulse Rate 93 H 92 H Pulse Rate [ 93 H From Monitor] Respiratory 18 18 Rate Blood Pressure 144/75 O2 Sat by Pulse 95 95 Oximetry General appearance: Present: no acute distress, mild distress, well-nourished - EENT Eyes: PERRL, EOM intact ENT: hearing intact, clear oral mucosa Ears: bilateral: normal - Neck Neck: supple, normal ROM - Respiratory Respiratory effort: normal Respiratory: bilateral: CTA - Breasts Breasts: normal - Cardiovascular Heart rate: 78 Rhythm: regular Heart Sounds: Present: S1 & S2. Absent: gallop, rub Extremities: pulses intact, No edema, normal color, Full ROM - Gastrointestinal General gastrointestinal: Present: soft, non-tender, distended, normal bowel sounds - Genitourinary Male genitourinary: normal - Integumentary Integumentary: clear, warm, dry - Musculoskeletal Musculoskeletal: 1, strength equal bilaterally - Neurologic Neurologic: moves all extremities - Psychiatric Psychiatric: memory intact, appropriate mood/affect, intact judgment & insight - Labs CBC & Chem 7: 05/22/19 05:05 05/22/19 05:05 Labs: Abnormal lab results 05/21/19 05/21/19 05/21/19 Range/Units 16:03 16:03 16:21 Hgb (11.8-15.2) gm/dl MCH 27 L (28-32) pg RDW 17.7 H (13.2-15.2) % Sebastian % (Auto) 8.0 H (0.0-7.3) % Lymph # 0.8 L (1.2-5.4) K/mm3 Seg Neutrophils % 75.0 H (40.0-70.0) % PT 11.8 L (12.2-14.9) Sec. Sodium 135 L (137-145) mmol/L Chloride 96.4 L (98-107) mmol/L BUN (9-20) mg/dL Creatinine 4.7 H (0.8-1.5) mg/dL Glucose 259 H (75-100) mg/dL POC Glucose (70-105) Calcium 8.3 L (8.4-10.2) mg/dL Albumin 2.7 L (3.9-5) g/dL Lipase 62 H (13-60) units/L 05/22/19 05/22/19 05/22/19 Range/Units 05:05 05:05 07:42 Hgb 11.5 L (11.8-15.2) gm/dl MCH 27 L (28-32) pg RDW 17.2 H (13.2-15.2) % Sebastian % (Auto) 9.9 H (0.0-7.3) % Lymph # 1.0 L (1.2-5.4) K/mm3 Seg Neutrophils % (40.0-70.0) % PT (12.2-14.9) Sec. Sodium (137-145) mmol/L Chloride (98-107) mmol/L BUN 27 H (9-20) mg/dL Creatinine 6.2 H (0.8-1.5) mg/dL Glucose 201 H (75-100) mg/dL POC Glucose 209 H (70-105) Calcium 7.9 L (8.4-10.2) mg/dL Albumin 2.4 L (3.9-5) g/dL Lipase (13-60) units/L 05/22/19 Range/Units 11:17 Hgb (11.8-15.2) gm/dl MCH (28-32) pg RDW (13.2-15.2) % Sebastian % (Auto) (0.0-7.3) % Lymph # (1.2-5.4) K/mm3 Seg Neutrophils % (40.0-70.0) % PT (12.2-14.9) Sec. Sodium (137-145) mmol/L Chloride (98-107) mmol/L BUN (9-20) mg/dL Creatinine (0.8-1.5) mg/dL Glucose (75-100) mg/dL POC Glucose 267 H (70-105) Calcium (8.4-10.2) mg/dL Albumin (3.9-5) g/dL Lipase (13-60) units/L CT Abdomen IMPRESSION: 1. Massive amount of abdominal ascites is again noted. 2. Left nephrectomy and probable nonobstructing right intrarenal 5 mm stone, unchanged. 3. Moderate bibasilar atelectasis again noted.
[2019-05-22] MEDS: SPIRONOLACTONE 50 MG TAB PO SCH ×2 (15:00→18:14)
[2019-05-22] MEDS: amLODIPine 10 MG TAB PO SCH ×2 (15:00→18:14)
[2019-05-22] MEDS: LOSARTAN 50 MG TAB PO SCH ×2 (15:00→18:12)
[2019-05-22 16:24] LABS: Hepatitis B Surface Antigen Non-Reactive (Negative); Hepatitis C Virus Antibody Reactive (NonReactive)
[2019-05-22] MEDS: MINOXIDIL 10 MG TAB PO SCH ×2 (17:25→21:27)
[2019-05-22] MEDS ORDERED: SODIUM CHLORIDE*PRIMING MACHINE ONLY FOR DIALYSIS MC ONE (17:59)
[2019-05-22] MEDS: FUROSEMIDE 40 MG TAB PO SCH (18:11)
[2019-05-22] MEDS: INSULIN NPH/REGULAR 70/30 INJ SUB-Q SCH (18:15)
[2019-05-23] MEDS: oxyCODONE /ACETAMINOPHEN 5-325MG TAB PO PRN ×3 (02:41→21:19)
[2019-05-23] MEDS: ONDANSETRON 4 MG/2 ML INJ IV PRN (08:07)
[2019-05-23] MEDS: INSULIN NPH/REGULAR 70/30 INJ SUB-Q SCH ×2 (08:10→16:51)
[2019-05-23] MEDS: hydrALAZINE 100 MG TAB PO SCH ×3 (08:10→21:19)
[2019-05-23] MEDS: MINOXIDIL 10 MG TAB PO SCH ×2 (09:47→21:18)
[2019-05-23] MEDS: FUROSEMIDE 40 MG TAB PO SCH (09:48)
[2019-05-23] MEDS: SPIRONOLACTONE 50 MG TAB PO SCH (09:48)
[2019-05-23] MEDS: LOSARTAN 50 MG TAB PO SCH (09:48)
[2019-05-23] MEDS: amLODIPine 10 MG TAB PO SCH (09:49)
--- NOTE | 2019-05-23 09:59 | Progress Note ---
Assessment and Plan Consult to GI for bodies reactive to hepatitis C, micronodular liver and new onset ascites. Patient resting comfortably following dialysis. A chest x-ray was ordered to document resolution of patient's pulmonary edema. We'll plan on paracentesis following GIs initial evaluation. Subjective Date of service: 05/23/19 Principal diagnosis: hepatic failure, end-stage renal disease on hemodialysis Interval history: Patient resting comfortably following dialysis yesterday. He is breathing easily with no complaints of respiratory distress. Hepatitis C antibodies noted to be reactive. Objective - Constitutional Vitals: Vital Signs - 12hr 05/23/19 05/23/19 05/23/19 02:01 07:18 07:23 Temperature 98.4 F 98.6 F 98.6 F Pulse Rate 101 H 98 H 84 Pulse Rate [ From Monitor] Respiratory 18 18 20 Rate Blood Pressure 129/62 125/66 140/84 O2 Sat by Pulse 97 96 100 Oximetry 05/23/19 05/23/19 05/23/19 07:27 08:25 09:48 Temperature Pulse Rate 102 H Pulse Rate [ 84 From Monitor] Respiratory 20 Rate Blood Pressure 115/62 O2 Sat by Pulse 93 93 Oximetry 05/23/19 09:49 Temperature Pulse Rate 102 H Pulse Rate [ From Monitor] Respiratory Rate Blood Pressure 115/62 O2 Sat by Pulse Oximetry General appearance: Present: no acute distress - EENT Eyes: EOM intact ENT: hearing intact - Neck Neck: supple, normal ROM - Respiratory Respiratory effort: normal - Breasts Breasts: deferred - Gastrointestinal General gastrointestinal: Present: soft, distended Rectal Exam: deferred - Genitourinary Male genitourinary: deferred - Neurologic Neurologic: no focal deficits - Psychiatric Psychiatric: appropriate mood/affect, cooperative - Labs CBC & Chem 7: 05/22/19 05:05 05/22/19 05:05 Labs: Abnormal lab results 05/22/19 05/22/19 05/22/19 Range/Units 11:17 15:22 18:13 POC Glucose 267 H 222 H (70-105) Hepatitis C Antibody Reactive A (NonReactive) 05/22/19 05/23/19 Range/Units 20:48 07:25 POC Glucose 120 H 166 H (70-105) Hepatitis C Antibody (NonReactive) Medications & Allergies - Medications Allergies/Adverse Reactions: Allergies No Known Allergies Allergy (Verified 04/12/19 17:10) Home Medications: Home Medications Medication Instructions Recorded Confirmed Last Taken Type AtorvaSTATin 40 mg PO DAILY 12/07/18 05/22/19 04/28/19 History Furosemide [Lasix TAB] 80 mg PO DAILY 12/07/18 05/22/19 04/28/19 History Losartan [Cozaar] 100 mg PO QDAY 12/07/18 05/22/19 04/28/19 History Minoxidil [Loniten] 10 mg PO BID 12/07/18 05/22/19 04/28/19 History Spironolactone [Aldactone] 50 mg PO QDAY 12/07/18 05/22/19 04/14/19 08:00 History amLODIPine 10 mg PO DAILY 12/07/18 05/22/19 04/28/19 History hydrALAZINE [Apresoline TAB] 100 mg PO TID 12/07/18 05/22/19 04/14/19 08:00 History oxyCODONE /ACETAMINOPHEN [Percocet 1 tab PO Q6HR PRN 7 Days #24 tablet 04/15/19 05/22/19 Unknown Rx 5/325 mg] Insulin NPH Hum/Reg Insulin Hm 15 unit SQ DAILY 05/22/19 05/22/19 Unknown History [HumuLIN 70-30 Vial] Active Medications: Generic Name Dose Route Start Last Admin Trade Name Freq PRN Reason Stop Dose Admin Acetaminophen 650 mg 05/21/19 17:39 Tylenol PO Q4H PRN Pain MILD(1-3)/Fever >100.5/HOLLY Albuterol 2.5 mg 05/21/19 17:39 Proventil IH Q4HRT PRN Shortness Of Breath Amlodipine Besylate 10 mg 05/22/19 15:00 05/23/19 09:49 Norvasc PO 10 mg DAILY BRE Administration Atorvastatin Calcium 40 mg 05/22/19 22:00 05/22/19 21:26 Lipitor PO 40 mg QHS BRE Administration Furosemide 80 mg 05/22/19 15:00 05/23/19 09:48 Lasix PO 80 mg DAILY BRE Administration Hydralazine HCl 100 mg 05/22/19 14:00 05/23/19 08:10 Apresoline PO 100 mg TID BRE Administration Sodium Chloride 100 mls @ 999 mls/hr 05/22/19 14:01 Nacl 0.9% IV STUART PRN Hypotension Insulin Human Isoph/Insulin Regular 15 unit 05/22/19 17:00 05/23/19 08:10 Humulin 70/30 SUB-Q Not Given BIDDIAB BRE Losartan Potassium 100 mg 05/22/19 15:00 05/23/19 09:48 Cozaar PO 100 mg QDAY BRE Administration Minoxidil 10 mg 05/22/19 15:00 05/23/19 09:47 Loniten PO 10 mg BID BRE Administration Ondansetron HCl 4 mg 05/21/19 17:39 05/23/19 08:07 Zofran IV 4 mg Q8H PRN Administration Nausea And Vomiting Oxycodone/Acetaminophen 1 tab 05/22/19 23:56 05/23/19 02:41 Percocet 5/325 PO 1 tab Q4H PRN Administration Pain, Moderate (4-6) Sodium Chloride 10 ml 05/21/19 22:00 05/23/19 09:50 Sodium Chloride Flush Syringe 10 Ml IV 10 ml BID BRE Administration Sodium Chloride 10 ml 05/21/19 17:39 05/23/19 08:09 Sodium Chloride Flush Syringe 10 Ml IV 10 ml PRN PRN Administration LINE FLUSH Spironolactone 50 mg 05/22/19 15:00 05/23/19 09:48 Aldactone PO 50 mg QDAY BRE Administration
[2019-05-23] MEDS ORDERED: LACTULOSE 20 GM/30 ML ORAL LIQD PO PRN (11:45)
--- NOTE | 2019-05-23 12:47 | XRay Report ---
CHEST 1 VIEW INDICATION / CLINICAL INFORMATION: pulmonary edema - SOB. COMPARISON: 05/21/2019 FINDINGS: SUPPORT DEVICES: Right venous access catheter remains in stable and satisfactory position. HEART / MEDIASTINUM: No significant abnormality. LUNGS / PLEURA: Previously noted bibasilar atelectasis persists not significantly changed. Upper lung jimenez are clear. No pneumothorax. ADDITIONAL FINDINGS: No significant additional findings. IMPRESSION: 1. Persistent bibasilar atelectasis. No significant interval change. No evidence for interstitial pul monary edema. Signer Name: Malini Hanley MD Signed: 05/23/2019 12:43 PM Workstation Name: [id number]
--- NOTE | 2019-05-23 17:41 | Progress Note ---
Assessment and Plan 1. ESRD: Continue hemodialysis three times a week, MWF schedule. Patient was last dialyzed on 05/21. 2. FEN: Volume overload, s/p Isolated UF yesterday. Monitor lytes. 3. Anemia: Epogen as needed. 4. HTN: BP controlled. Monitor BP. 5. DM-2. 6. Ascites: Need Paracentesis. IR on board. 7. Hepatitis C. Examination: General appearance: well-developed, well-nourished, appears stated age EENT: ATNC, CALVIN, mucous membranes moist, hearing intact, vision intact Neck: supple, trachea midline Respiratory: bibasal rales Heart: regular, S1S2, no murmur Gastrointestinal: normoactive bowel sounds, distended, not tender Integumentary: no rash, warm and dry Neurologic: no focal deficit, no asterixis, confused Musculoskeletal: no edema Psychiatric: cooperative Hemodialysis access: R IJ tunnel catheter, L arm AVF Subjective Date of service: 05/23/19 Principal diagnosis: hepatic failure, end-stage renal disease on hemodialysis Interval history: Patient was seen and examined at the bedside. Doing ok. Objective - Vital Signs Vital signs: Vital Signs - 12hr 05/23/19 05/23/19 05/23/19 07:18 07:23 07:27 Temperature 98.6 F 98.6 F Pulse Rate 98 H 84 Pulse Rate [ From Monitor] Respiratory 18 20 Rate Blood Pressure 125/66 140/84 O2 Sat by Pulse 96 100 93 Oximetry 05/23/19 05/23/19 05/23/19 08:25 09:46 09:48 Temperature Pulse Rate 102 H 102 H Pulse Rate [ 84 From Monitor] Respiratory 20 Rate Blood Pressure 115/62 115/62 O2 Sat by Pulse 93 94 Oximetry 05/23/19 05/23/19 05/23/19 09:49 10:00 13:28 Temperature 97.8 F Pulse Rate 102 H 102 H 107 H Pulse Rate [ From Monitor] Respiratory 18 Rate Blood Pressure 115/62 100/74 O2 Sat by Pulse 96 Oximetry 05/23/19 05/23/19 14:12 17:26 Temperature Pulse Rate Pulse Rate [ From Monitor] Respiratory 18 Rate Blood Pressure 98/57 O2 Sat by Pulse Oximetry - Lab 05/22/19 05:05 05/22/19 05:05 Most recent lab results Calcium 7.9 mg/dL (8.4-10.2) L 05/22/19 05:05 Medications & Allergies - Medications Allergies/Adverse Reactions: Allergies No Known Allergies Allergy (Verified 04/12/19 17:10) Home Medications: Home Medications Medication Instructions Recorded Confirmed Last Taken Type AtorvaSTATin 40 mg PO DAILY 12/07/18 05/22/19 04/28/19 History Furosemide [Lasix TAB] 80 mg PO DAILY 12/07/18 05/22/19 04/28/19 History Losartan [Cozaar] 100 mg PO QDAY 12/07/18 05/22/19 04/28/19 History Minoxidil [Loniten] 10 mg PO BID 12/07/18 05/22/19 04/28/19 History Spironolactone [Aldactone] 50 mg PO QDAY 12/07/18 05/22/19 04/14/19 08:00 History amLODIPine 10 mg PO DAILY 12/07/18 05/22/19 04/28/19 History hydrALAZINE [Apresoline TAB] 100 mg PO TID 12/07/18 05/22/19 04/14/19 08:00 History oxyCODONE /ACETAMINOPHEN [Percocet 1 tab PO Q6HR PRN 7 Days #24 tablet 04/15/19 05/22/19 Unknown Rx 5/325 mg] Insulin NPH Hum/Reg Insulin Hm 15 unit SQ DAILY 05/22/19 05/22/19 Unknown History [HumuLIN 70-30 Vial] Active Medications: Generic Name Dose Route Start Last Admin Trade Name Freq PRN Reason Stop Dose Admin Acetaminophen 650 mg 05/21/19 17:39 Tylenol PO Q4H PRN Pain MILD(1-3)/Fever >100.5/HOLLY Albuterol 2.5 mg 05/21/19 17:39 Proventil IH Q4HRT PRN Shortness Of Breath Amlodipine Besylate 10 mg 05/22/19 15:00 05/23/19 09:49 Norvasc PO 10 mg DAILY BRE Administration Atorvastatin Calcium 40 mg 05/22/19 22:00 05/22/19 21:26 Lipitor PO 40 mg QHS BRE Administration Furosemide 80 mg 05/22/19 15:00 05/23/19 09:48 Lasix PO 80 mg DAILY BRE Administration Hydralazine HCl 100 mg 05/22/19 14:00 05/23/19 14:15 Apresoline PO Not Given TID BRE Sodium Chloride 100 mls @ 999 mls/hr 05/22/19 14:01 Nacl 0.9% IV STUART PRN Hypotension Insulin Human Isoph/Insulin Regular 15 unit 05/22/19 17:00 05/23/19 16:51 Humulin 70/30 SUB-Q 15 unit BIDDIAB BRE Administration Lactulose 20 gm 05/23/19 11:45 05/23/19 14:12 Cephulac PO 20 gm Q12H PRN Administration Constipation Losartan Potassium 100 mg 05/22/19 15:00 05/23/19 09:48 Cozaar PO 100 mg QDAY BRE Administration Minoxidil 10 mg 05/22/19 15:00 05/23/19 09:47 Loniten PO 10 mg BID BRE Administration Ondansetron HCl 4 mg 05/21/19 17:39 05/23/19 08:07 Zofran IV 4 mg Q8H PRN Administration Nausea And Vomiting Oxycodone/Acetaminophen 1 tab 05/22/19 23:56 05/23/19 17:26 Percocet 5/325 PO 1 tab Q4H PRN Administration Pain, Moderate (4-6) Sodium Chloride 10 ml 05/21/19 22:00 05/23/19 09:50 Sodium Chloride Flush Syringe 10 Ml IV 10 ml BID BRE Administration Sodium Chloride 10 ml 05/21/19 17:39 05/23/19 08:09 Sodium Chloride Flush Syringe 10 Ml IV 10 ml PRN PRN Administration LINE FLUSH Spironolactone 50 mg 05/22/19 15:00 05/23/19 09:48 Aldactone PO 50 mg QDAY BRE Administration
[2019-05-24] MEDS: oxyCODONE /ACETAMINOPHEN 5-325MG TAB PO PRN ×2 (03:13→08:10)
--- NOTE | 2019-05-24 05:49 | Progress Note ---
Assessment and Plan (1) ESRD (end stage renal disease) Current Visit: Yes Status: Acute Plan to address problem: Had HD--symptomatically better (2) Ascites Current Visit: No Status: Acute Qualifiers: Ascites type: other type Qualified Code(s): R18.8 - Other ascites Plan to address problem: Paracentesis tomorrow by IR, CT Abdomen--Massive ascites (3) HLD (hyperlipidemia) Current Visit: No Status: Acute Qualifiers: Hyperlipidemia type: mixed hyperlipidemia Qualified Code(s): E78.2 - Mixed hyperlipidemia Plan to address problem: Cont Statins (4) HTN (hypertension) Current Visit: No Status: Acute Qualifiers: Hypertension type: essential hypertension Qualified Code(s): I10 - Essential (primary) hypertension Plan to address problem: Cont antihypertensives (5) Nicotine dependence Current Visit: No Status: Acute Qualifiers: Nicotine product type: cigarettes Substance use status: in withdrawal Qualified Code(s): F17.213 - Nicotine dependence, cigarettes, with withdrawal Plan to address problem: smoking cessation counseled at time of admission Nicoderm patch initiated (6)IDDM Cont Home insulin and coverage (7) DVT prophylaxis Current Visit: No Status: Acute Plan to address problem: SCD to BLE while in bed Discharge planning Patient maybe discharged after paracentesis tomorrow Subjective Date of service: 05/23/19 Principal diagnosis: Ascites,ESRD,CHF Interval history: 63 YO Male with ESRD on HD(M,W,F), HTN, HLD, Dementia, Nicotine Dependence presents to ED for evaluation. Pt states that he has experienced abdominal distention and shortness of breath over the past 2 weeks, with progressively worsening symptoms over the past 1 week. Pt underwent routine dialysis today without improvement in symptoms. EMS notified after dialysis, and upon arrival the patient was found to be in distress and transported to [facility]. Pt seen and evaluated in ED and found to have ESRD, Ascites complicated by pleural Effusion. Pt admitted to [facility] unit. Nephrology consulted in ED. IR consulted in ED for para centesis. Pt denies fever, chills, CP, Palpitation, NVD, Trauma, BRBPR, Hemoptysis, Skin rash, Productive cough or recent ill contacts. Prior admission on 04/28/19 reviewed. All listed medication reconciled at time of admission. Interval history SOB better,Abdominal distension persists. Due for paracentesis tomorrow by IR Objective - Constitutional Vitals: Vital Signs - 12hr 05/23/19 05/23/19 05/23/19 19:15 19:32 19:33 Temperature 99.3 F Pulse Rate 104 H 104 H Pulse Rate [ 97 H From Monitor] Respiratory 18 18 Rate Blood Pressure 117/49 O2 Sat by Pulse 93 93 Oximetry 05/24/19 01:43 Temperature 98.1 F Pulse Rate 103 H Pulse Rate [ From Monitor] Respiratory 18 Rate Blood Pressure 118/64 O2 Sat by Pulse 93 Oximetry General appearance: Present: mild distress, well-nourished - EENT Eyes: PERRL, EOM intact ENT: hearing intact, clear oral mucosa Ears: bilateral: normal - Neck Neck: supple, normal ROM - Respiratory Respiratory effort: normal Respiratory: bilateral: CTA - Breasts Breasts: normal - Cardiovascular Heart rate: 78 Rhythm: regular Heart Sounds: Present: S1 & S2. Absent: gallop, rub Extremities: pulses intact, No edema, normal color, Full ROM - Gastrointestinal General gastrointestinal: Present: soft, non-tender, non-distended, normal bowel sounds Rectal Exam: deferred - Genitourinary Male genitourinary: normal - Integumentary Integumentary: clear, warm, dry - Musculoskeletal Musculoskeletal: 1, strength equal bilaterally - Neurologic Neurologic: moves all extremities - Psychiatric Psychiatric: memory intact, appropriate mood/affect, intact judgment & insight - Allied health notes Allied health notes reviewed: nursing, case management - Labs CBC & Chem 7: 05/22/19 05:05 05/22/19 05:05 Labs: Abnormal lab results 05/23/19 05/23/19 05/23/19 Range/Units 07:25 11:35 16:19 POC Glucose 166 H 188 H 226 H (70-105) 05/23/19 05/24/19 Range/Units 23:53 01:19 POC Glucose 57 L 68 L (70-105)
--- NOTE | 2019-05-24 07:47 | Progress Note ---
Assessment and Plan Assessment and plan: 63 YO Male with ESRD on HD(M,W,F), HTN, HLD, Dementia, Nicotine Dependence presents to ED for evaluation. Pt states that he has experienced abdominal distention and shortness of breath over the past 2 weeks, with progressively worsening symptoms over the past 1 week. Pt underwent routine dialysis today w ithout improvement in symptoms. EMS notified after dialysis, and upon arrival the patient was found to be in distress and transported to [facility]. * Pt seen and evaluated in ED and found to have ESRD, Ascites complicated by pleural Effusion. Pt admitted to [facility] unit. Nephrology consulted in ED. IR consulted in ED for paracentesis. Pt denies fever, chills, CP, Palpitation, NVD, Trauma, BRBPR, Hemoptysis, Skin rash, Productive cough or recent ill contacts. Prior admission on 04/28/19 reviewed. * IR evaluated the patient and requested GI eval due to Newly diagnosed Hepatitis C and for ?antibodies reactive to hepatitis C, micronodular liver and new onset ascites. (1) ESRD (end stage renal disease) Current Visit: Yes Status: Acute Plan to address problem: Had HD--symptomatically better (2) Ascites Current Visit: No Status: Acute Qualifiers: Ascites type: other type Qualified Code(s): R18.8 - Other ascites Plan to address problem: Paracentesis TODAY by IR, Wants GI eval first and has consulted them CT Abdomen--Massive ascites (3) HLD (hyperlipidemia) Current Visit: No Status: Acute Qualifiers: Hyperlipidemia type: mixed hyperlipidemia Qualified Code(s): E78.2 - Mixed hyperlipidemia Plan to address problem: Cont Statins (4) HTN (hypertension) Current Visit: No Status: Acute Qualifiers: Hypertension type: essential hypertension Qualified Code(s): I10 - Essential (primary) hypertension Plan to address problem: Cont antihypertensives (5) Nicotine dependence Current Visit: No Status: Acute Qualifiers: Nicotine product type: cigarettes Substance use status: in withdrawal Qualified Code(s): F17.213 - Nicotine dependence, cigarettes, with withdrawal Plan to address problem: smoking cessation counseled at time of admission Nicoderm patch initiated (6)IDDM Cont Home insulin and coverage Monitor for noted hypoglycemia (7) Hepatitis C Newly diagnosed--GI consult requested (8) DVT/GI prophy Discharge planning Patient maybe discharged after paracentesis TODAY Hospitalist Physical - Constitutional Vitals: Temp Pulse Resp BP Pulse Ox 98.1 F 111 H 20 145/73 94 05/24/19 07:09 05/24/19 07:09 05/24/19 07:09 05/24/19 07:09 05/24/19 07:09 General appearance: Present: mild distress, well-nourished Results - Labs CBC & Chem 7: 05/22/19 05:05 05/22/19 05:05 Labs: Laboratory Last Values WBC 4.7 K/mm3 (4.5-11.0) 05/22/19 05:05 RBC 4.30 M/mm3 (3.65-5.03) 05/22/19 05:05 Hgb 11.5 gm/dl (11.8-15.2) L 05/22/19 05:05 Hct 36.3 % (35.5-45.6) 05/22/19 05:05 MCV 84 fl (84-94) 05/22/19 05:05 MCH 27 pg (28-32) L 05/22/19 05:05 MCHC 32 % (32-34) 05/22/19 05:05 RDW 17.2 % (13.2-15.2) H 05/22/19 05:05 Plt Count 229 K/mm3 (140-440) 05/22/19 05:05 Lymph % (Auto) 20.5 % (13.4-35.0) 05/22/19 05:05 [place] % (Auto) 9.9 % (0.0-7.3) H 05/22/19 05:05 Eos % (Auto) 1.3 % (0.0-4.3) 05/22/19 05:05 Baso % (Auto) 0.7 % (0.0-1.8) 05/22/19 05:05 Lymph # 1.0 K/mm3 (1.2-5.4) L 05/22/19 05:05 [place] # 0.5 K/mm3 (0.0-0.8) 05/22/19 05:05 Eos # 0.1 K/mm3 (0.0-0.4) 05/22/19 05:05 Baso # 0.0 K/mm3 (0.0-0.1) 05/22/19 05:05 Seg Neutrophils % 67.6 % (40.0-70.0) 05/22/19 05:05 Seg Neutrophils # 3.2 K/mm3 (1.8-7.7) 05/22/19 05:05 PT 11.8 Sec. (12.2-14.9) L 05/21/19 16:21 INR 0.89 (0.87-1.13) 05/21/19 16:21 APTT 29.0 Sec. (24.2-36.6) 05/21/19 16:21 Sodium 137 mmol/L (137-145) 05/22/19 05:05 Potassium 3.8 mmol/L (3.6-5.0) 05/22/19 05:05 Chloride 98.0 mmol/L (98-107) 05/22/19 05:05 Carbon Dioxide 25 mmol/L (22-30) 05/22/19 05:05 Anion Gap 18 mmol/L 05/22/19 05:05 BUN 27 mg/dL (9-20) H 05/22/19 05:05 Creatinine 6.2 mg/dL (0.8-1.5) H 05/22/19 05:05 Estimated GFR 11 ml/min 05/22/19 05:05 BUN/Creatinine Ratio 4 % 05/22/19 05:05 Glucose 201 mg/dL (75-100) H 05/22/19 05:05 POC Glucose 180 (70-105) H 05/24/19 07:17 Calcium 7.9 mg/dL (8.4-10.2) L 05/22/19 05:05 Total Bilirubin 0.40 mg/dL (0.1-1.2) 05/22/19 05:05 AST 17 units/L (5-40) 05/22/19 05:05 ALT 9 units/L (7-56) 05/22/19 05:05 Alkaline Phosphatase 61 units/L (35-129) 05/22/19 05:05 Total Protein 6.6 g/dL (6.3-8.2) 05/22/19 05:05 Albumin 2.4 g/dL (3.9-5) L 05/22/19 05:05 Albumin/Globulin Ratio 0.6 % 05/22/19 05:05 Lipase 62 units/L (13-60) H 05/21/19 16:03 Hepatitis A IgM Ab Non-reactive (NonReactive) 05/22/19 15:22 Hep Bs Antigen Non-reactive (Negative) 05/22/19 15:22 Hep B Core IgM Ab Non-reactive (NonReactive) 05/22/19 15:22 Hepatitis C Antibody Reactive (NonReactive) A 05/22/19 15:22 Active Medications - Current Medications Current Medications: Generic Name Dose Route Start Last Admin Trade Name Freq PRN Reason Stop Dose Admin Acetaminophen 650 mg 05/21/19 17:39 Tylenol PO Q4H PRN Pain MILD(1-3)/Fever >100.5/HOLLY Albuterol 2.5 mg 05/21/19 17:39 Proventil IH Q4HRT PRN Shortness Of Breath Amlodipine Besylate 10 mg 05/22/19 15:00 05/23/19 09:49 Norvasc PO 10 mg DAILY BRE Administration Atorvastatin Calcium 40 mg 05/22/19 22:00 05/23/19 21:18 Lipitor PO 40 mg QHS BRE Administration Furosemide 80 mg 05/22/19 15:00 05/23/19 09:48 Lasix PO 80 mg DAILY BRE Administration Hydralazine HCl 100 mg 05/22/19 14:00 05/23/19 21:19 Apresoline PO 100 mg TID BRE Administration Sodium Chloride 100 mls @ 999 mls/hr 05/22/19 14:01 Nacl 0.9% IV STUART PRN Hypotension Insulin Human Isoph/Insulin Regular 15 unit 05/22/19 17:00 05/23/19 16:51 Humulin 70/30 SUB-Q 15 unit BIDDIAB BRE Administration Lactulose 20 gm 05/23/19 11:45 05/23/19 14:12 Cephulac PO 20 gm Q12H PRN Administration Constipation Losartan Potassium 100 mg 05/22/19 15:00 05/23/19 09:48 Cozaar PO 100 mg QDAY BRE Administration Minoxidil 10 mg 05/22/19 15:00 05/23/19 21:18 Loniten PO 10 mg BID BRE Administration Ondansetron HCl 4 mg 05/21/19 17:39 05/23/19 08:07 Zofran IV 4 mg Q8H PRN Administration Nausea And Vomiting Oxycodone/Acetaminophen 1 tab 05/22/19 23:56 05/24/19 03:13 Percocet 5/325 PO 1 tab Q4H PRN Administration Pain, Moderate (4-6) Sodium Chloride 10 ml 05/21/19 22:00 05/23/19 21:20 Sodium Chloride Flush Syringe 10 Ml IV 10 ml BID BRE Administration Sodium Chloride 10 ml 05/21/19 17:39 05/23/19 08:09 Sodium Chloride Flush Syringe 10 Ml IV 10 ml PRN PRN Administration LINE FLUSH Spironolactone 50 mg 05/22/19 15:00 05/23/19 09:48 Aldactone PO 50 mg QDAY BRE Administration
[2019-05-24] MEDS: INSULIN NPH/REGULAR 70/30 INJ SUB-Q SCH ×2 (07:49→17:25)
[2019-05-24] MEDS: hydrALAZINE 100 MG TAB PO SCH ×2 (07:49→13:11)
[2019-05-24] MEDS: ONDANSETRON 4 MG/2 ML INJ IV PRN (08:21)
[2019-05-24] MEDS: SPIRONOLACTONE 50 MG TAB PO SCH (09:41)
[2019-05-24] MEDS: FUROSEMIDE 40 MG TAB PO SCH (09:45)
[2019-05-24] MEDS: amLODIPine 10 MG TAB PO SCH (09:49)
[2019-05-24] MEDS: MINOXIDIL 10 MG TAB PO SCH (09:49)
[2019-05-24] MEDS: LOSARTAN 50 MG TAB PO SCH (09:49)
--- NOTE | 2019-05-24 10:15 | Progress Note ---
Assessment and Plan 1. ESRD: Continue hemodialysis three times a week, MWF schedule. Patient was last dialyzed on 05/21. HD today. To use the L arm AVG with small needles. 2. FEN: Volume overload, s/p Isolated UF on 05/22. Monitor lytes. 3. Anemia: Epogen as needed. 4. HTN: BP controlled. Monitor BP. 5. DM-2. 6. Cirrhosis with Ascites: S/p Paracentesis with removal of about 10 Lts of fluid. Followed by GI. 7. Hepatitis C. Examination: General appearance: well-developed, well-nourished, appears stated age EENT: ATNC, CALVIN, mucous membranes moist, hearing intact, vision intact Neck: supple, trachea midline Respiratory: bibasal rales Heart: regular, S1S2, no murmur Gastrointestinal: normoactive bowel sounds, distended, not tender Integumentary: no rash, warm and dry Neurologic: no focal deficit, no asterixis, confused Musculoskeletal: no edema Psychiatric: cooperative Hemodialysis access: R IJ tunnel catheter, L arm AVG Subjective Date of service: 05/24/19 Principal diagnosis: Ascites,ESRD,CHF Interval history: Patient was seen and examined at the bedside. Doing ok. Objective - Vital Signs Vital signs: Vital Signs - 12hr 05/24/19 05/24/19 05/24/19 01:43 07:09 09:41 Temperature 98.1 F 98.1 F Pulse Rate 103 H 111 H 109 H Respiratory 18 20 Rate Blood Pressure 118/64 145/73 117/64 O2 Sat by Pulse 93 94 Oximetry - Lab 05/22/19 05:05 05/22/19 05:05 Most recent lab results Calcium 7.9 mg/dL (8.4-10.2) L 05/22/19 05:05 Medications & Allergies - Medications Allergies/Adverse Reactions: Allergies No Known Allergies Allergy (Verified 04/12/19 17:10) Home Medications: Home Medications Medication Instructions Recorded Confirmed Last Taken Type AtorvaSTATin 40 mg PO DAILY 12/07/18 05/22/19 04/28/19 History Furosemide [Lasix TAB] 80 mg PO DAILY 12/07/18 05/22/19 04/28/19 History Losartan [Cozaar] 100 mg PO QDAY 12/07/18 05/22/19 04/28/19 History Minoxidil [Loniten] 10 mg PO BID 12/07/18 05/22/19 04/28/19 History Spironolactone [Aldactone] 50 mg PO QDAY 12/07/18 05/22/19 04/14/19 08:00 History amLODIPine 10 mg PO DAILY 12/07/18 05/22/19 04/28/19 History hydrALAZINE [Apresoline TAB] 100 mg PO TID 12/07/18 05/22/19 04/14/19 08:00 History oxyCODONE /ACETAMINOPHEN [Percocet 1 tab PO Q6HR PRN 7 Days #24 tablet 04/15/19 05/22/19 Unknown Rx 5/325 mg] Insulin NPH Hum/Reg Insulin Hm 15 unit SQ DAILY 05/22/19 05/22/19 Unknown History [HumuLIN 70-30 Vial] Lactulose [Cephulac] 20 gm PO Q12H PRN #30 oral.liqd 05/24/19 Unknown Rx Active Medications: Generic Name Dose Route Start Last Admin Trade Name Freq PRN Reason Stop Dose Admin Acetaminophen 650 mg 05/21/19 17:39 05/24/19 09:44 Tylenol PO 650 mg Q4H PRN Administration Pain MILD(1-3)/Fever >100.5/HOLLY Albuterol 2.5 mg 05/21/19 17:39 Proventil IH Q4HRT PRN Shortness Of Breath Amlodipine Besylate 10 mg 05/22/19 15:00 05/24/19 09:49 Norvasc PO Not Given DAILY BRE Atorvastatin Calcium 40 mg 05/22/19 22:00 05/23/19 21:18 Lipitor PO 40 mg QHS BRE Administration Furosemide 80 mg 05/22/19 15:00 05/24/19 09:45 Lasix PO 80 mg DAILY BRE Administration Hydralazine HCl 100 mg 05/22/19 14:00 05/24/19 07:49 Apresoline PO 100 mg TID BRE Administration Sodium Chloride 100 mls @ 999 mls/hr 05/22/19 14:01 Nacl 0.9% IV STUART PRN Hypotension Insulin Human Isoph/Insulin Regular 15 unit 05/22/19 17:00 05/24/19 07:49 Humulin 70/30 SUB-Q 15 unit BIDDIAB BRE Administration Lactulose 20 gm 05/23/19 11:45 05/23/19 14:12 Cephulac PO 20 gm Q12H PRN Administration Constipation Losartan Potassium 100 mg 05/22/19 15:00 05/24/19 09:49 Cozaar PO Not Given QDAY BRE Minoxidil 10 mg 05/22/19 15:00 05/24/19 09:49 Loniten PO Not Given BID BRE Ondansetron HCl 4 mg 05/21/19 17:39 05/24/19 08:21 Zofran IV 4 mg Q8H PRN Administration Nausea And Vomiting Oxycodone/Acetaminophen 1 tab 05/22/19 23:56 05/24/19 08:10 Percocet 5/325 PO 1 tab Q4H PRN Administration Pain, Moderate (4-6) Sodium Chloride 10 ml 05/21/19 22:00 05/24/19 09:50 Sodium Chloride Flush Syringe 10 Ml IV 10 ml BID BRE Administration Sodium Chloride 10 ml 05/21/19 17:39 05/23/19 08:09 Sodium Chloride Flush Syringe 10 Ml IV 10 ml PRN PRN Administration LINE FLUSH Spironolactone 50 mg 05/22/19 15:00 05/24/19 09:41 Aldactone PO 50 mg QDAY BRE Administration
--- NOTE | 2019-05-24 10:25 | Discharge Summary ---
Providers - Providers Date of Admission: 05/21/19 17:39 Attending physician: EMIL MONTAGUE MD 05/21/19 17:37 Consult to Physician [CONS] Stat Comment: Consulting Provider: DARÍO NAVARRO Physician Instructions: Reason For Exam: esrd 05/21/19 20:43 Consult to Interventional Radiology [CONS] Routine Consulting Provider: NOAH RIVAS Reason For Exam: Paracentesis Place consult to:: EVELYN Notified:: EVELYN 05/23/19 09:41 Consult to Physician [CONS] Routine Comment: Consulting Provider: BOO KLEIN Physician Instructions: Reason For Exam: micronodular liver, new onset ascites Primary care physician: [facility] Hospitalization Reason for admission: ASCITES Condition: Stable Hospital course: 63 YO Male with ESRD on HD(M,W,F), HTN, HLD, Dementia, Nicotine Dependence presents to ED for evaluation. Pt states that he has experienced abdominal distention and shortness of breath over the past 2 weeks, with progressively worsening symptoms over the past 1 week. Pt underwent routine dialysis today without improvement in symptoms. EMS notified after dialysis, and upon arrival the patient was found to be in distress and transported to [facility]. * Pt seen and evaluated in ED and found to have ESRD, Ascites complicated by pleural Effusion. Pt admitted to [facility] unit. Nephrology consulted in ED. IR consulted in ED for paracentesis. Pt denies fever, chills, CP, Palpitation, NVD, Trauma, BRBPR, Hemoptysis, Skin rash, Productive cough or recent ill contacts. Prior admission on 04/28/19 reviewed. * Following discussion with patient, he informs me he has known about Hepatitis C for sometime now and started having ascities about 3 weeks ago. He understands the need to follow with GI for surveillance of HCC and also consideration for treatment for the Hep c * Nephrology is in agreement for discharge post dialysis today after Paracentesis if clinically stable * Extensive counselling 15 mins on Need to quit Tobacco use. Patient verbalized understanding. (1) ESRD (end stage renal disease) (2) Ascites (3) HLD (hyperlipidemia) (4) HTN (hypertension) (5) Nicotine dependence (6)IDDM (7) Hepatitis C (8) Mild Hyponatremia. Disposition: - TO HOME OR SELFCARE Time spent for discharge: 35 mins Core Measure Documentation - Palliative Care Palliative Care/ Comfort Measures: Not Applicable - Core Measures Any of the following diagnoses?: none Exam - Physical Exam Narrative exam: General appearance: Present: mild distress secondary to abdominal distention, well-nourished - EENT Eyes: PERRL, EOM intact ENT: hearing intact, clear oral mucosa Ears: bilateral: normal - Neck Neck: supple, normal ROM - Respiratory Respiratory effort: normal Respiratory: bilateral: CTA - Breasts Breasts: normal - Cardiovascular Heart rate: 78 Rhythm: regular Heart Sounds: Present: S1 & S2. Absent: gallop, rub Extremities: pulses intact, No edema, normal color, Full ROM - Gastrointestinal General gastrointestinal: Present: soft, non-tender, non-distended, normal bowel sounds Rectal Exam: deferred - Genitourinary Male genitourinary: normal - Integumentary Integumentary: clear, warm, dry - Musculoskeletal Musculoskeletal: 1, strength equal bilaterally - Neurologic Neurologic: moves all extremities - Psychiatric Psychiatric: memory intact, appropriate mood/affect, intact judgment & insight - Allied health notes Allied health notes reviewed: nursing, case management - Constitutional Vitals: Temp Pulse Resp BP Pulse Ox 98.1 F 109 H 20 117/64 94 05/24/19 07:09 05/24/19 09:41 05/24/19 07:09 05/24/19 09:41 05/24/19 07:09 Plan Activity: advance as tolerated, fall precautions Diet: diabetic, renal Special Instructions: smoking cessation Follow up with: ADRIEN DUNCAN MD [Primary Care Provider] - 7 Days DARÍO NAVARRO MD [Staff Physician] - 7 Days BOO KLEIN MD [Staff Physician] - 7 Days Prescriptions: Lactulose [Cephulac] 20 gm PO Q12H PRN #30 oral.liqd PRN Reason: Constipation
--- NOTE | 2019-05-24 10:33 | Progress Note ---
Subjective Date of service: 05/24/19 Principal diagnosis: Ascites,ESRD,CHF Interval history: s/p left arm av graft insertion on 04/15 presents with new onset abdominal ascites left arm avg with palpable thrill, ok to use now, spoke with Nephrology left hand warm and well perfused awaiting GI eval prior to paracentesis patient resting comfortably on room air abdomen moderately distended, no TTP will continue to follow Objective - Constitutional Vitals: Vital Signs - 12hr 05/24/19 05/24/19 05/24/19 01:43 07:09 09:41 Temperature 98.1 F 98.1 F Pulse Rate 103 H 111 H 109 H Respiratory 18 20 Rate Blood Pressure 118/64 145/73 117/64 O2 Sat by Pulse 93 94 Oximetry - Labs CBC & Chem 7: 05/22/19 05:05 05/22/19 05:05 Labs: Abnormal lab results 05/23/19 05/23/19 05/23/19 Range/Units 11:35 16:19 23:53 POC Glucose 188 H 226 H 57 L (70-105) 05/24/19 05/24/19 05/24/19 Range/Units 01:19 06:08 07:17 POC Glucose 68 L 157 H 180 H (70-105) Medications & Allergies - Medications Allergies/Adverse Reactions: Allergies No Known Allergies Allergy (Verified 04/12/19 17:10) Home Medications: Home Medications Medication Instructions Recorded Confirmed Last Taken Type AtorvaSTATin 40 mg PO DAILY 12/07/18 05/22/19 04/28/19 History Furosemide [Lasix TAB] 80 mg PO DAILY 12/07/18 05/22/19 04/28/19 History Losartan [Cozaar] 100 mg PO QDAY 12/07/18 05/22/19 04/28/19 History Minoxidil [Loniten] 10 mg PO BID 12/07/18 05/22/19 04/28/19 History Spironolactone [Aldactone] 50 mg PO QDAY 12/07/18 05/22/19 04/14/19 08:00 History amLODIPine 10 mg PO DAILY 12/07/18 05/22/19 04/28/19 History hydrALAZINE [Apresoline TAB] 100 mg PO TID 12/07/18 05/22/19 04/14/19 08:00 History oxyCODONE /ACETAMINOPHEN [Percocet 1 tab PO Q6HR PRN 7 Days #24 tablet 04/15/19 05/22/19 Unknown Rx 5/325 mg] Insulin NPH Hum/Reg Insulin Hm 15 unit SQ DAILY 05/22/19 05/22/19 Unknown History [HumuLIN 70-30 Vial] Lactulose [Cephulac] 20 gm PO Q12H PRN #30 oral.liqd 05/24/19 Unknown Rx Active Medications: Generic Name Dose Route Start Last Admin Trade Name Freq PRN Reason Stop Dose Admin Acetaminophen 650 mg 05/21/19 17:39 05/24/19 09:44 Tylenol PO 650 mg Q4H PRN Administration Pain MILD(1-3)/Fever >100.5/HOLLY Albuterol 2.5 mg 05/21/19 17:39 Proventil IH Q4HRT PRN Shortness Of Breath Amlodipine Besylate 10 mg 05/22/19 15:00 05/24/19 09:49 Norvasc PO Not Given DAILY BRE Atorvastatin Calcium 40 mg 05/22/19 22:00 05/23/19 21:18 Lipitor PO 40 mg QHS BRE Administration Furosemide 80 mg 05/22/19 15:00 05/24/19 09:45 Lasix PO 80 mg DAILY BRE Administration Hydralazine HCl 100 mg 05/22/19 14:00 05/24/19 07:49 Apresoline PO 100 mg TID BRE Administration Sodium Chloride 100 mls @ 999 mls/hr 05/22/19 14:01 Nacl 0.9% IV STUART PRN Hypotension Insulin Human Isoph/Insulin Regular 15 unit 05/22/19 17:00 05/24/19 07:49 Humulin 70/30 SUB-Q 15 unit BIDDIAB BRE Administration Lactulose 20 gm 05/23/19 11:45 05/23/19 14:12 Cephulac PO 20 gm Q12H PRN Administration Constipation Losartan Potassium 100 mg 05/22/19 15:00 05/24/19 09:49 Cozaar PO Not Given QDAY BRE Minoxidil 10 mg 05/22/19 15:00 05/24/19 09:49 Loniten PO Not Given BID BRE Ondansetron HCl 4 mg 05/21/19 17:39 05/24/19 08:21 Zofran IV 4 mg Q8H PRN Administration Nausea And Vomiting Oxycodone/Acetaminophen 1 tab 05/22/19 23:56 05/24/19 08:10 Percocet 5/325 PO 1 tab Q4H PRN Administration Pain, Moderate (4-6) Sodium Chloride 10 ml 05/21/19 22:00 05/24/19 09:50 Sodium Chloride Flush Syringe 10 Ml IV 10 ml BID BRE Administration Sodium Chloride 10 ml 05/21/19 17:39 05/23/19 08:09 Sodium Chloride Flush Syringe 10 Ml IV 10 ml PRN PRN Administration LINE FLUSH Spironolactone 50 mg 05/22/19 15:00 05/24/19 09:41 Aldactone PO 50 mg QDAY BRE Administration
[2019-05-24] MEDS ORDERED: SODIUM CHLORIDE 0.9% 100 ML IV PRN (11:00)
[2019-05-24] MEDS ORDERED: DEXTROSE 50% IN WATER (25GM) 50 ML SYRINGE IV ONE (11:59)
--- NOTE | 2019-05-24 13:48 | Gastroenterology Progress Note ---
Assessment and Plan 1. Ascites 2. Cirrhosis 3. Hep C Ab + 4. ESRD -diagnostic/therapeutic tap pending. likely portal htn related ascites given cirrhosis, and likely chronic hep c (although need to confirm with RNA levels) -will need further management as outpatient after paracentesis. pt instructed to f/u in GI clinic in 2-3 weeks. Subjective Date of service: 05/24/19 Principal diagnosis: Ascites,ESRD,CHF Interval history: pt seen and examined; reports discomfort related to ascites. h/o hep c (known per pt), no prior treatment (ab positive, no RNA results). Objective - Constitutional Vitals: Temp Pulse Resp BP Pulse Ox 98.1 F 105 H 20 117/64 94 05/24/19 07:09 05/24/19 10:00 05/24/19 07:09 05/24/19 09:41 05/24/19 07:09 General appearance: no acute distress - Respiratory Respiratory effort: normal Respiratory: bilateral: CTA - Cardiovascular Heart Sounds: Present: S1 & S2 - Gastrointestinal General gastrointestinal: Present: other (ascites, nt, distended) - Neurologic Neurological: alert and oriented x3 - Psychiatric Psychiatric: appropriate mood/affect - Labs CBC & Chem 7: 05/22/19 05:05 05/22/19 05:05 Labs: Laboratory Results - last 24 hr 05/23/19 05/23/19 05/24/19 16:19 23:53 01:19 POC Glucose 226 H 57 L 68 L 05/24/19 05/24/19 05/24/19 06:08 07:17 11:39 POC Glucose 157 H 180 H 65 L
--- NOTE | 2019-05-24 13:53 | Consultation ---
REFERRING PHYSICIAN: Rubio Butcher MD HISTORY OF PRESENT ILLNESS: The patient is a 63-year-old black male with history of end-stage renal disease, hypertension, dementia, nicotine dependence. The patient is on dialysis. The patient reports that over the last 3-4 weeks, he has noted abdominal distention. Per team, had a paracentesis approximately 2-3 weeks ago. The patient reports no known history of liver disease. He denies any recent diet or medication changes. The patient reports over the last week his belly started to distend when seen at dialysis, was sent to the Emergency Room. He denies any other specific GI problems or complaints. PAST MEDICAL HISTORY: 1. End-stage renal disease, on dialysis. 2. Hypertension. 3. High cholesterol. MEDICATIONS: Reviewed and updated in chart. ALLERGIES: No known drug allergies. SOCIAL HISTORY: Denies alcohol, tobacco or drug abuse. FAMILY HISTORY: Negative for colon cancer, IBD, or liver disease. REVIEW OF SYSTEMS: GENERAL: Reports mild weakness. HEENT: No visual complaints or tinnitus. PULMONARY: No shortness of breath. No cough. No chest pain. GASTROINTESTINAL: Reports ascites. All points of 13-point review of systems otherwise negative. PHYSICAL EXAMINATION: VITAL SIGNS: Temperature of 97.8, pulse of 100, respirations 18, blood pressure 100/74. GENERAL: Fairly thin male, in no acute distress. HEENT: Pupils equal, round and reactive. PULMONARY: Clear to auscultation. ABDOMEN: Positive bowel sounds, distended, firm. SKIN: No obvious rashes. LABORATORY DATA: Pertinent for white count of 4.7, hemoglobin and hematocrit 11.5 and 36.3, platelet count of 229. Chem-7 within normal limits except for BUN and creatinine of 27 and 6.2. LFTs within normal limits. CT scan showed large amount of ascites with a normal appearing liver and a left nephrostomy and atelectasis. ASSESSMENT AND PLAN: A 63-year-old male with history of end-stage renal disease and other medical problems as noted above, now presents with recurrent ascites, unclear etiology. The patient denies a history of liver disease, and he has normal liver labs and his synthetic function and current labs seem to be normal. Unclear etiology, but so far no indication of liver disease. PLAN: 1. Large volume paracentesis while sending labs for studies. 2. We will await renal input as the diuretics. 3. Basic liver evaluation including labs. 4. Liver ultrasound with Doppler. 5. We will follow further recommendation based on progress. JOB# [id number] CAB/NTS
--- NOTE | 2019-05-24 15:07 | Ultrasound Report ---
ULTRASOUND-GUIDED PARACENTESIS HISTORY: ascites. PROCEDURE: The risks (including but not limited to bleeding, infection, and bowel injury) and benefi ts were explained to the patient and informed consent was obtained. A time out procedure was perform ed. Ultrasound was used to evaluate the abdomen and locate the largest ascites fluid pocket. Once the sk in was marked, the procedure site was prepped and draped in the usual sterile fashion and lidocaine w as used for local anesthesia. A skin mynor was made and a 5 [place] centesis catheter was placed. The patient was monitored closely throughout the procedure, and a total of 9700 mL of yellow fluid was a spirated. Samples were sent to the lab for further evaluation per the primary clinicians orders. The patient tolerated the procedure well with no complications. IMPRESSION: Successful ultrasound-guided paracentesis as described. Signer Name: Bart Calvo Jr, MD Signed: 05/24/2019 3:03 PM Workstation Name: [id number]
--- NOTE | 2019-05-24 15:18 | Ultrasound Report ---
LIMITED RUQ ABDOMINAL ULTRASOUND INDICATION: ASCITES, HEPATITIS C. COMPARISON: No relevant prior imaging study available. FINDINGS: Pancreas: Visualized portions show no significant abnormality. Abdominal Aorta: No significant abnormality. IVC: No significant abnormality. Liver: The liver measures 17.1 cm in length. Subtle surface nodularity of the liver probably represe nts mild cirrhotic changes.. Normal hepatopedal blood flow in the main portal vein. Gallbladder: No significant abnormality. Bile ducts: No significant abnormality. Common bile duct measures 5.0 mm. Right kidney: The right kidney is echogenic measuring 10.7 cm in length. No focal right renal lesion or hydronephrosis.. Free fluid: Small ascites is demonstrated which has decreased significantly since paracentesis perfor med earlier today.. Additional Findings: None. IMPRESSION: Mild cirrhotic changes are suggested in the liver. No focal liver mass. Nonspecific renal parenchymal disease. Small ascites. Signer Name: Brat Calvo Jr, MD Signed: 05/24/2019 3:14 PM Workstation Name: [id number]
[2019-05-24 19:15] LABS: Total Cells Counted 100 /mm3
[2019-05-24] MEDS ORDERED: SODIUM CHLORIDE*PRIMING MACHINE ONLY FOR DIALYSIS MC ONE (20:40)
[2019-05-24 21:21] VITALS: BP 126/64
[2019-05-31 07:01] LABS: LDH,Body Fluid 193
== END 2019-05-24 21:30 | disposition home or self-care (01) | DRG 432 ==
LOC: ED 15:36 → 2B-ACE 17:39
PROVIDERS: ADMIT Internal Medicine; ATTEND Internal Medicine
PROC: 3E0234Z Introduction of Serum, Toxoid and Vaccine into Muscle, Percutaneous Approach (ICD-10-PCS; 2019-05-22)
PROC: 5A1D70Z Performance of Urinary Filtration, Intermittent, Less than 6 Hours Per Day (ICD-10-PCS; 2019-05-22)
PROC: 0W9G3ZZ Drainage of Peritoneal Cavity, Percutaneous Approach (ICD-10-PCS; principal; 2019-05-23)
PROC: 5A1D70Z Performance of Urinary Filtration, Intermittent, Less than 6 Hours Per Day (ICD-10-PCS; 2019-05-24)
DX: K74.60 Unspecified cirrhosis of liver (principal); N18.6 End stage renal disease; R18.8 Other ascites; E87.1 Hypo-osmolality and hyponatremia; I12.0 Hypertensive chronic kidney disease with stage 5 chronic kidney disease or end stage renal disease; J90 Pleural effusion, not elsewhere classified; F17.213 Nicotine dependence, cigarettes, with withdrawal; B19.20 Unspecified viral hepatitis C without hepatic coma; F03.90 Unspecified dementia, unspecified severity, without behavioral disturbance, psychotic disturbance, mood disturbance, and anxiety; E11.22 Type 2 diabetes mellitus with diabetic chronic kidney disease; E87.70 Fluid overload, unspecified; D64.9 Anemia, unspecified; E78.2 Mixed hyperlipidemia; Z71.6 Tobacco abuse counseling; Z79.4 Long term (current) use of insulin; Z79.899 Other long term (current) drug therapy; Z82.49 Family history of ischemic heart disease and other diseases of the circulatory system; Z83.3 Family history of diabetes mellitus; Z23 Encounter for immunization
CPT/HCPCS: 36415; 49083; 71045; 74176; 76705; 80053; 80074; 82040; 82962; 83605; 83690; 85025; 85610; 85730; 87116; 88112; 88305; 89051; 90686; 90732; 93005; 93010; 96374; 99406; G0378; A9270-GY; J1815; J2405; J7030

== ENCOUNTER 2019-07-01 07:51 | Day surgery (SDC) | payer MEDICARE ==
[2019-07-01 08:46] LABS: INR 0.98 (0.87-1.13)
[2019-07-01 08:47] LABS: Partial Thromboplastin Time 30.1 Sec. (24.2-36.6)
[2019-07-01] MEDS ORDERED: ALBUMIN HUMAN 25% (25 GM/100 ML) INJ IV PRN (10:59)
--- NOTE | 2019-07-01 10:59 | Short Stay Summary ---
Short Stay Documentation Date of service: 07/01/19 - History Principal diagnosis: ascites Past Medical History: liver disease, renal failure - Allergies and Medications Current Medications: Allergies No Known Allergies Allergy (Verified 04/12/19 17:10) Home Medications Medication Instructions Recorded Confirmed Last Taken Type AtorvaSTATin 40 mg PO DAILY 12/07/18 07/01/19 06/30/19 History 40 mg Losartan [Cozaar] 100 mg PO QDAY 12/07/18 07/01/19 06/30/19 History 100 mg Minoxidil [Loniten] 10 mg PO DAILY 12/07/18 07/01/19 06/30/19 History 10 mg hydrALAZINE [Apresoline TAB] 100 mg PO TID 12/07/18 07/01/19 06/30/19 History 100 mg amLODIPine 10 mg PO DAILY 07/01/19 07/01/19 06/30/19 History 10 mg - Physical exam General appearance: no acute distress Gastrointestinal: distended - Brief post op/procedure progress note Date of procedure: 07/01/19 Pre-op diagnosis: ascites Post-op diagnosis: same Procedure: US paracentesis Anesthesia: local Findings: large ascites Surgeon: ANDREZ NAPIER Estimated blood loss: none Pathology: none Specimen disposition: discarded Condition: stable - Disposition Condition at discharge: Good Disposition: DC-01 TO HOME OR SELFCARE Short Stay Discharge Plan Follow up with: PRIMARY CAREMD [Primary Care Provider] - 7 Days
--- NOTE | 2019-07-01 11:31 | Ultrasound Report ---
ULTRASOUND-GUIDED PARACENTESIS HISTORY: ascites. PROCEDURE: The risks (including but not limited to bleeding, infection, and bowel injury) and benefi ts were explained to the patient and informed consent was obtained. A time out procedure was perform ed. Ultrasound was used to evaluate the abdomen and locate the largest ascites fluid pocket. Once the sk in was marked, the procedure site was prepped and draped in the usual sterile fashion and lidocaine w as used for local anesthesia. A skin mynor was made and a 5 Nigerien centesis catheter was placed. The patient was monitored closely throughout the procedure, and a total of 10,200 mL of clear yellow flu id was aspirated. No labs were ordered The patient tolerated the procedure well with no complications. IMPRESSION: Successful ultrasound-guided paracentesis as described. Signer Name: Bart Calvo Jr, MD Signed: 07/01/2019 11:26 AM Workstation Name: [id number]
[2019-07-01 11:59] VITALS: BP 169/74
== END 2019-07-01 12:20 | disposition home or self-care (01) ==
LOC: CATHLABREC 07:51 → EDSTATUS 09:00 → CATHLABREC 12:20
PROVIDERS: ATTEND Internal Medicine Nephrology
DX: R18.8 Other ascites (principal); I12.0 Hypertensive chronic kidney disease with stage 5 chronic kidney disease or end stage renal disease; E10.22 Type 1 diabetes mellitus with diabetic chronic kidney disease; N18.6 End stage renal disease; E78.5 Hyperlipidemia, unspecified; E10.69 Type 1 diabetes mellitus with other specified complication; J43.9 Emphysema, unspecified; E78.00 Pure hypercholesterolemia, unspecified; F17.210 Nicotine dependence, cigarettes, uncomplicated; Z79.899 Other long term (current) drug therapy; Z99.2 Dependence on renal dialysis; Z98.890 Other specified postprocedural states; Z86.2 Personal history of diseases of the blood and blood-forming organs and certain disorders involving the immune mechanism
CPT/HCPCS: 36415; 49083; 85610; 85730

== ENCOUNTER 2019-08-10 06:42 | Day surgery (SDC) | payer MEDICARE ==
[2019-08-10 08:48] LABS: INR 0.92 (0.87-1.13)
[2019-08-10 08:49] LABS: Partial Thromboplastin Time 29.4 Sec. (24.2-36.6)
--- NOTE | 2019-08-10 10:16 | Short Stay Summary ---
Short Stay Documentation Date of service: 08/10/19 - History Principal diagnosis: ascites Past Medical History: renal failure - Allergies and Medications Current Medications: Allergies No Known Allergies Allergy (Verified 04/12/19 17:10) Home Medications Medication Instructions Recorded Confirmed Last Taken Type AtorvaSTATin 40 mg PO DAILY 12/07/18 08/10/19 08/09/19 History Losartan [Cozaar] 100 mg PO QDAY 12/07/18 08/10/19 08/09/19 History Minoxidil [Loniten] 10 mg PO DAILY 12/07/18 08/10/19 08/09/19 History hydrALAZINE [Apresoline TAB] 100 mg PO TID 12/07/18 08/10/19 08/09/19 History amLODIPine 10 mg PO DAILY 07/01/19 08/10/19 08/09/19 History - Physical exam General appearance: no acute distress Gastrointestinal: distended - Brief post op/procedure progress note Date of procedure: 08/10/19 Pre-op diagnosis: ascites Post-op diagnosis: same Procedure: US paracentesis Anesthesia: local Findings: large ascites Surgeon: ANDREZ NAPIER Estimated blood loss: none Pathology: none Specimen disposition: discarded Condition: stable - Hospital course Hospital course: uneventful - Disposition Condition at discharge: Good Disposition: DC-01 TO HOME OR SELFCARE Short Stay Discharge Plan Follow up with: PRIMARY CARE, [Primary Care Provider] - 7 Days
--- NOTE | 2019-08-10 10:21 | Ultrasound Report ---
ULTRASOUND-GUIDED PARACENTESIS HISTORY: Ascites. PROCEDURE: The risks (including but not limited to bleeding, infection, and bowel injury) and benefi ts were explained to the patient and informed consent was obtained. A time out procedure was perform ed. Ultrasound was used to evaluate the abdomen and locate the largest ascites fluid pocket. Once the sk in was marked, the procedure site was prepped and draped in the usual sterile fashion and lidocaine w as used for local anesthesia. A skin mynor was made and a 5 Brazilian centesis catheter was placed. The patient was monitored closely throughout the procedure, and a total of 10,000 mL of clear yellow flu id was aspirated. No labs were ordered. The patient tolerated the procedure well with no complications. The patient requested to be discharge d without albumin administration. The patient needed to go directly to dialysis appointment. IMPRESSION: Successful ultrasound-guided paracentesis as described. Signer Name: Bart Calvo Jr, MD Signed: 08/10/2019 10:17 AM Workstation Name: [id number]
[2019-08-10 10:33] VITALS: BP 191/88
== END 2019-08-10 10:20 | disposition home or self-care (01) ==
LOC: CATHLABREC 06:42 → EDSTATUS 07:30 → CATHLABREC 10:20
PROVIDERS: ATTEND Internal Medicine Nephrology
DX: R18.8 Other ascites (principal); I12.0 Hypertensive chronic kidney disease with stage 5 chronic kidney disease or end stage renal disease; N18.6 End stage renal disease; E78.5 Hyperlipidemia, unspecified; E10.22 Type 1 diabetes mellitus with diabetic chronic kidney disease; E10.69 Type 1 diabetes mellitus with other specified complication; E78.00 Pure hypercholesterolemia, unspecified; J43.9 Emphysema, unspecified; F17.210 Nicotine dependence, cigarettes, uncomplicated; Z79.899 Other long term (current) drug therapy; Z99.2 Dependence on renal dialysis; Z98.890 Other specified postprocedural states; Z86.2 Personal history of diseases of the blood and blood-forming organs and certain disorders involving the immune mechanism
CPT/HCPCS: 36415; 49083; 85610; 85730

== ENCOUNTER 2019-09-02 07:52 | Day surgery (SDC) | payer MEDICARE ==
[2019-09-02] MEDS ORDERED: ALBUMIN HUMAN 25% (25 GM/100 ML) INJ IV PRN (09:50)
--- NOTE | 2019-09-02 09:50 | Short Stay Summary ---
Short Stay Documentation Date of service: 09/02/19 - History Principal diagnosis: ascites Past Medical History: liver disease, renal failure - Allergies and Medications Current Medications: Allergies No Known Allergies Allergy (Verified 04/12/19 17:10) Home Medications Medication Instructions Recorded Confirmed Last Taken Type AtorvaSTATin 40 mg PO DAILY 12/07/18 09/02/19 09/01/19 History Losartan [Cozaar] 100 mg PO QDAY 12/07/18 09/02/19 09/01/19 History Minoxidil [Loniten] 10 mg PO DAILY 12/07/18 09/02/19 09/01/19 History hydrALAZINE [Apresoline TAB] 100 mg PO TID 12/07/18 09/02/19 09/01/19 History amLODIPine 10 mg PO DAILY 07/01/19 09/02/19 09/01/19 History - Physical exam General appearance: no acute distress Gastrointestinal: distended - Brief post op/procedure progress note Date of procedure: 09/02/19 Pre-op diagnosis: ascites Post-op diagnosis: same Procedure: US paracentesis Anesthesia: local Findings: moderate to large ascites Surgeon: ANDREZ NAPIER Estimated blood loss: none Pathology: none Specimen disposition: discarded Condition: stable - Hospital course Hospital course: uneventful - Disposition Condition at discharge: Good Disposition: DC-01 TO HOME OR SELFCARE Short Stay Discharge Plan Follow up with: PRIMARY CAREMD [Primary Care Provider] - 7 Days
[2019-09-02 10:53] VITALS: BP 180/75
--- NOTE | 2019-09-02 11:48 | Ultrasound Report ---
ULTRASOUND-GUIDED PARACENTESIS HISTORY: ascites. PROCEDURE: The risks (including but not limited to bleeding, infection, and bowel injury) and benefi ts were explained to the patient and informed consent was obtained. A time out procedure was perform ed. Ultrasound was used to evaluate the abdomen and locate the largest ascites fluid pocket. Once the sk in was marked, the procedure site was prepped and draped in the usual sterile fashion and lidocaine w as used for local anesthesia. A skin mynor was made and a 5 Monegasque centesis catheter was placed. The patient was monitored closely throughout the procedure, and a total of 8900 mL of clear yellow fluid was aspirated. No labs were ordered. The patient tolerated the procedure well with no complications. IMPRESSION: Successful ultrasound-guided paracentesis as described. Signer Name: Bart Calvo Jr, MD Signed: 09/02/2019 11:44 AM Workstation Name: [id number]
== END 2019-09-02 11:15 | disposition home or self-care (01) ==
LOC: CATHLABREC 07:52
PROVIDERS: ATTEND Internal Medicine Nephrology
DX: R18.8 Other ascites (principal); I12.0 Hypertensive chronic kidney disease with stage 5 chronic kidney disease or end stage renal disease; E10.22 Type 1 diabetes mellitus with diabetic chronic kidney disease; N18.6 End stage renal disease; E78.00 Pure hypercholesterolemia, unspecified; J43.9 Emphysema, unspecified; F17.210 Nicotine dependence, cigarettes, uncomplicated; Z79.899 Other long term (current) drug therapy; Z99.2 Dependence on renal dialysis; Z86.2 Personal history of diseases of the blood and blood-forming organs and certain disorders involving the immune mechanism
CPT/HCPCS: 49083

== ENCOUNTER 2019-09-15 13:17 | Emergency (ER) | payer MEDICARE ==
[2019-09-15] MEDS ORDERED: INSULIN REGULAR, HUMAN 100 UNITS/1 ML IV ONE (13:58)
[2019-09-15] MEDS ORDERED: hydrALAZINE 20 MG/1 ML INJ IV ONE ×2 (13:58→16:31)
[2019-09-15 14:17] LABS: Basophils % (Auto) 0.5 % (0.0-1.8); Eosinophils # (Auto) 0.1 K/mm3 (0.0-0.4); Eosinophils % (Auto) 1.9 % (0.0-4.3); Hematocrit 31.5 % (35.5-45.6); Hemoglobin 10.3 gm/dl (11.8-15.2); Lymphocytes # (Auto) 1.5 K/mm3 (1.2-5.4); Lymphocytes % (Auto) 20.5 % (13.4-35.0); Mean Corpuscular HGB Conc 33 % (32-34); Mean Corpuscular Volume 82 fl (84-94); Monocytes # (Auto) 0.5 K/mm3 (0.0-0.8); Monocytes % (Auto) 6.6 % (0.0-7.3); Platelet Count 211 K/mm3 (140-440); Red Blood Count 3.82 M/mm3 (3.65-5.03); Red Cell Distribution Width 17.9 % (13.2-15.2)
[2019-09-15 14:43] LABS: Albumin 2.5 g/dL (3.9-5); Calcium 7.8 mg/dL (8.4-10.2)
[2019-09-15 14:56] LABS: Chol/HDL Ratio 2.38 %
--- NOTE | 2019-09-15 15:15 | XRay Report ---
CHEST 2 VIEWS INDICATION / CLINICAL INFORMATION: missed dialysis, rales, hypertension. COMPARISON: Chest x-ray 05/23/2019 FINDINGS: SUPPORT DEVICES: None. HEART / MEDIASTINUM: No significant abnormality. LUNGS / PLEURA: Streaky parenchymal disease both lower lobes, unchanged. No pneumothorax. ADDITIONAL FINDINGS: No significant additional findings. IMPRESSION: 1. Bilateral lower lobe parenchymal disease/atelectasis, unchanged Signer Name: Sanjay Watson MD Signed: 09/15/2019 3:11 PM Workstation Name: [id number]
--- NOTE | 2019-09-15 17:13 | Emergency Department Report ---
ED General Adult HPI - General Chief complaint: High BP Stated complaint: HYPERTENSION Time Seen by Provider: 09/15/19 13:50 Source: patient, EMS Mode of arrival: Stretcher Limitations: No Limitations - History of Present Illness Initial comments: Patient is a 63-year-old male presents emergency room with complaints of elevated blood pressure. He states that he went to dialysis today and was advised that his blood pressure was too high and that he could not receive dialysis. pt has not taken any of his medications in 4 days. He was given 0.2 mg of clonidine at the dialysis clinic. He denies any symptoms at all and did not even know his blood pressure was elevated. He denies any chest pain, headache, shortness of breath, abdominal pain, nausea, vomiting, diarrhea, fever, swelling, vision changes, numbness, weakness. States he goes to dialysis on Friday and last went two days ago. health diagnostics teacher: Dr. Navarro Severity scale (0 -10): 0 - Related Data Previous Rx's Medication Instructions Recorded Last Taken Type AtorvaSTATin 40 mg PO DAILY #30 09/15/19 Unknown Rx Insulin NPH Hum/Reg Insulin Hm 30 unit SQ QHS #1 vial 09/15/19 Unknown Rx [HumuLIN 70-30 Vial] Losartan [Cozaar] 100 mg PO QDAY #30 09/15/19 Unknown Rx Minoxidil [Loniten] 10 mg PO DAILY #30 09/15/19 Unknown Rx hydrALAZINE [Apresoline TAB] 100 mg PO TID #90 tab 09/15/19 Unknown Rx Allergies Allergy/AdvReac Type Severity Reaction Status Date / Time No Known Allergies Allergy Verified 04/12/19 17:10 ED Review of Systems ROS: Stated complaint: HYPERTENSION Other details as noted in HPI Comment: All other systems reviewed and negative ED Past Medical Hx - Past Medical History Previous Medical History?: Yes Hx Hypertension: Yes Hx Heart Attack/AMI: No Hx Congestive Heart Failure: No Hx Diabetes: Yes Hx Renal Disease: Yes (M, W, F) Hx of Cancer: Yes (not sure what kind) Hx Headaches / Migraines: No Hx Asthma: No Hx COPD: No Hx Dementia: No - Surgical History Hx Coronary Stent: No Additional Surgical History: unknown - Social History Smoking Status: Current Every Day Smoker Substance Use Type: None - Medications Home Medications: Home Medications Medication Instructions Recorded Confirmed Last Taken Type AtorvaSTATin 40 mg PO DAILY #30 09/15/19 Unknown Rx Insulin NPH Hum/Reg Insulin Hm 30 unit SQ QHS #1 vial 09/15/19 Unknown Rx [HumuLIN 70-30 Vial] Losartan [Cozaar] 100 mg PO QDAY #30 09/15/19 Unknown Rx Minoxidil [Loniten] 10 mg PO DAILY #30 09/15/19 Unknown Rx hydrALAZINE [Apresoline TAB] 100 mg PO TID #90 tab 09/15/19 Unknown Rx ED Physical Exam - General Limitations: No Limitations General appearance: alert, cachectic - Head Head exam: Present: atraumatic, normocephalic - Eye Eye exam: Present: normal appearance - ENT ENT exam: Present: mucous membranes moist - Respiratory Respiratory exam: Present: normal lung sounds bilaterally. Absent: respiratory distress, wheezes, rales, rhonchi, stridor, chest wall tenderness, accessory muscle use, decreased breath sounds, prolonged expiratory - Cardiovascular Cardiovascular Exam: Present: regular rate, normal rhythm, normal heart sounds, other (left upper arm AV fistula with good thrill). Absent: systolic murmur, diastolic murmur, rubs, gallop - GI/Abdominal GI/Abdominal exam: Present: soft, normal bowel sounds. Absent: distended, tenderness, guarding, rebound, rigid - Neurological Exam Neurological exam: Present: alert, oriented X3 - Psychiatric Psychiatric exam: Present: normal affect, normal mood - Skin Skin exam: Present: warm, dry, intact ED Course Vital Signs 09/15/19 09/15/19 09/15/19 13:41 13:44 14:00 Temperature 98.4 F Pulse Rate 78 Respiratory 16 16 Rate Blood Pressure 226/98 Blood Pressure 226/98 [Right] O2 Sat by Pulse 95 95 94 Oximetry 09/15/19 09/15/19 09/15/19 14:30 15:46 16:00 Temperature Pulse Rate 68 77 Respiratory 19 19 Rate Blood Pressure 234/104 217/87 188/79 Blood Pressure [Right] O2 Sat by Pulse 93 98 96 Oximetry 09/15/19 09/15/19 09/15/19 17:00 17:55 18:30 Temperature Pulse Rate 81 88 83 Respiratory 26 H 20 20 Rate Blood Pressure 190/80 166/75 Blood Pressure 179/89 [Right] O2 Sat by Pulse 96 99 97 Oximetry 09/15/19 18:38 Temperature Pulse Rate 83 Respiratory Rate Blood Pressure 166/75 Blood Pressure [Right] O2 Sat by Pulse Oximetry - Consultations Consultation #1: 09/15/19 17:[address] Navarro, health diagnostics teacher who states the pts called and said that the patient ran out of his medications 4 days ago, he states that he can go to dialysis tomorrow morning (09/16/2019) and follow up in his office as an outpatient and be discharged home on his home medications ED Medical Decision Making - Lab Data Result diagrams: 09/15/19 14:05 09/15/19 14:05 Lab Results 09/15/19 09/15/19 09/15/19 Range/Units 13:58 14:05 14:05 WBC 7.5 (4.5-11.0) K/mm3 RBC 3.82 (3.65-5.03) M/mm3 Hgb 10.3 L (11.8-15.2) gm/dl Hct 31.5 L (35.5-45.6) % MCV 82 L (84-94) fl MCH 27 L (28-32) pg MCHC 33 (32-34) % RDW 17.9 H (13.2-15.2) % Plt Count 211 (140-440) K/mm3 Lymph % (Auto) 20.5 (13.4-35.0) % [place] % (Auto) 6.6 (0.0-7.3) % Eos % (Auto) 1.9 (0.0-4.3) % Baso % (Auto) 0.5 (0.0-1.8) % Lymph # 1.5 (1.2-5.4) K/mm3 [place] # 0.5 (0.0-0.8) K/mm3 Eos # 0.1 (0.0-0.4) K/mm3 Baso # 0.0 (0.0-0.1) K/mm3 Seg Neutrophils % 70.5 H (40.0-70.0) % Seg Neutrophils # 5.3 (1.8-7.7) K/mm3 VBG pH (7.320-7.420) Sodium 135 L (137-145) mmol/L Potassium 4.2 (3.6-5.0) mmol/L Chloride 95.4 L (98-107) mmol/L Carbon Dioxide 24 (22-30) mmol/L Anion Gap 20 mmol/L BUN 43 H (9-20) mg/dL Creatinine 5.9 H (0.8-1.5) mg/dL Estimated GFR 12 ml/min BUN/Creatinine Ratio 7 % Glucose 467 H (75-100) mg/dL POC Glucose 470 H (70-105) Calcium 7.8 L (8.4-10.2) mg/dL Phosphorus 4.20 (2.5-4.5) mg/dL Magnesium 2.00 (1.7-2.3) mg/dL Total Bilirubin 0.30 (0.1-1.2) mg/dL AST 28 (5-40) units/L ALT 18 (7-56) units/L Alkaline Phosphatase 76 (35-129) units/L Troponin T (0.00-0.029) ng/mL Total Protein 6.4 (6.3-8.2) g/dL Albumin 2.5 L (3.9-5) g/dL Albumin/Globulin Ratio 0.6 % Triglycerides (2-149) mg/dL Cholesterol (50-199) mg/dL LDL Cholesterol Direct (50-130) mg/dL HDL Cholesterol (40-59) mg/dL Cholesterol/HDL Ratio % 09/15/19 09/15/19 09/15/19 Range/Units 14:05 14:05 15:50 WBC (4.5-11.0) K/mm3 RBC (3.65-5.03) M/mm3 Hgb (11.8-15.2) gm/dl Hct (35.5-45.6) % MCV (84-94) fl MCH (28-32) pg MCHC (32-34) % RDW (13.2-15.2) % Plt Count (140-440) K/mm3 Lymph % (Auto) (13.4-35.0) % [place] % (Auto) (0.0-7.3) % Eos % (Auto) (0.0-4.3) % Baso % (Auto) (0.0-1.8) % Lymph # (1.2-5.4) K/mm3 [place] # (0.0-0.8) K/mm3 Eos # (0.0-0.4) K/mm3 Baso # (0.0-0.1) K/mm3 Seg Neutrophils % (40.0-70.0) % Seg Neutrophils # (1.8-7.7) K/mm3 VBG pH 7.480 H (7.320-7.420) Sodium (137-145) mmol/L Potassium (3.6-5.0) mmol/L Chloride (98-107) mmol/L Carbon Dioxide (22-30) mmol/L Anion Gap mmol/L BUN (9-20) mg/dL Creatinine (0.8-1.5) mg/dL Estimated GFR ml/min BUN/Creatinine Ratio % Glucose (75-100) mg/dL POC Glucose (70-105) Calcium (8.4-10.2) mg/dL Phosphorus (2.5-4.5) mg/dL Magnesium (1.7-2.3) mg/dL Total Bilirubin (0.1-1.2) mg/dL AST (5-40) units/L ALT (7-56) units/L Alkaline Phosphatase (35-129) units/L Troponin T 0.435 H* 0.424 H* (0.00-0.029) ng/mL Total Protein (6.3-8.2) g/dL Albumin (3.9-5) g/dL Albumin/Globulin Ratio % Triglycerides 134 (2-149) mg/dL Cholesterol 131 (50-199) mg/dL LDL Cholesterol Direct 61 (50-130) mg/dL HDL Cholesterol 55 (40-59) mg/dL Cholesterol/HDL Ratio 2.38 % 09/15/19 Range/Units 16:51 WBC (4.5-11.0) K/mm3 RBC (3.65-5.03) M/mm3 Hgb (11.8-15.2) gm/dl Hct (35.5-45.6) % MCV (84-94) fl MCH (28-32) pg MCHC (32-34) % RDW (13.2-15.2) % Plt Count (140-440) K/mm3 Lymph % (Auto) (13.4-35.0) % [place] % (Auto) (0.0-7.3) % Eos % (Auto) (0.0-4.3) % Baso % (Auto) (0.0-1.8) % Lymph # (1.2-5.4) K/mm3 [place] # (0.0-0.8) K/mm3 Eos # (0.0-0.4) K/mm3 Baso # (0.0-0.1) K/mm3 Seg Neutrophils % (40.0-70.0) % Seg Neutrophils # (1.8-7.7) K/mm3 VBG pH (7.320-7.420) Sodium (137-145) mmol/L Potassium (3.6-5.0) mmol/L Chloride (98-107) mmol/L Carbon Dioxide (22-30) mmol/L Anion Gap mmol/L BUN (9-20) mg/dL Creatinine (0.8-1.5) mg/dL Estimated GFR ml/min BUN/Creatinine Ratio % Glucose (75-100) mg/dL POC Glucose 175 H (70-105) Calcium (8.4-10.2) mg/dL Phosphorus (2.5-4.5) mg/dL Magnesium (1.7-2.3) mg/dL Total Bilirubin (0.1-1.2) mg/dL AST (5-40) units/L ALT (7-56) units/L Alkaline Phosphatase (35-129) units/L Troponin T (0.00-0.029) ng/mL Total Protein (6.3-8.2) g/dL Albumin (3.9-5) g/dL Albumin/Globulin Ratio % Triglycerides (2-149) mg/dL Cholesterol (50-199) mg/dL LDL Cholesterol Direct (50-130) mg/dL HDL Cholesterol (40-59) mg/dL Cholesterol/HDL Ratio % - Radiology Data Radiology results: report reviewed CHEST 2 VIEWS INDICATION / CLINICAL INFORMATION: missed dialysis, rales, hypertension. COMPARISON: Chest x-ray 05/23/2019 FINDINGS: SUPPORT DEVICES: None. HEART / MEDIASTINUM: No significant abnormality. LUNGS / PLEURA: Streaky parenchymal disease both lower lobes, unchanged. No pneumothorax. ADDITIONAL FINDINGS: No significant additional findings. IMPRESSION: 1. Bilateral lower lobe parenchymal disease/atelectasis, unchanged Signer Name: Sanjay Watson MD Signed: 09/15/2019 3:11 PM Workstation Name: [id number] Transcribed By: TL Dictated By: Sanjay Watson MD Electronically Authenticated By: Sanjay Watson MD Signed Date/Time: 09/15/191510 DD/ 09 TD/TT: - Medical Decision Making Patient is a 63-year-old male presents emergency room with complaints of elevated blood pressure. He states that he went to dialysis today and was advised that his blood pressure was too high and that he could not receive dialysis. pt has not taken any of his medications in 4 days. He was given 0.2 mg of clonidine at the dialysis clinic. He denies any symptoms at all and did not even know his blood pressure was elevated. He denies any chest pain, headache, shortness of breath, abdominal pain, nausea, vomiting, diarrhea, fever, swelling, vision changes, numbness, weakness. States he goes to dialysis on Friday and last went two days ago. health diagnostics teacher: Dr. Navarro. pt is presenting with hypertensive urgency, he was already given 0.2 mg of clonidine by dialysis and his pressure is 226/98 on arrival. pt given hydralazine and amlodipine and blood pressure improved. kidney function is stable from prior. pt glucose elevated at 467 given 10 units of insulin and improved to 175. initial troponin elevated, second troponin decreased, likely secondary to pts ESRD. pt is not having CP or SOB. CXR: 1. Bilateral lower lobe parenchymal disease/atelectasis, unchanged. spoke to Dr. Navarro, health diagnostics teacher who states the pts called and said that the patient ran out of his medications 4 days ago, he states that he can go to dialysis tomorrow morning (09/16/2019) and follow up in his office as an outpatient and be discharged home on his home medications. pt given refills of his home medications. discussed with pt I spoke with Dr. Navarro and you will report to dialysis tomorrow morning to have your dialysis completed (09/16/2019). I have refilled your medications please take them as prescribed. Keep a blood pressure log and take your blood pressure 3 times a day. Eat a low-sodium diet. Do not miss any dialysis treatments. Please follow-up with Dr. Navarro and your primary care doctor. Return to the emergency room immediately for any new or worsening symptoms. - Differential Diagnosis HTN urgency, HTN emergency, AMANDA on CKD, electrolyte disturbance, dehydratio Critical care attestation.: If time is entered above; I have spent that time in minutes in the direct care of this critically ill patient, excluding procedure time. ED Disposition Clinical Impression: Hypertensive urgency Disposition: DC-01 TO HOME OR SELFCARE Is pt being admited?: No Does the pt Need Aspirin: No Condition: Stable Instructions: Hypertensive Crisis (ED) Additional Instructions: I spoke with Dr. Navarro and you will report to dialysis tomorrow morning to have your dialysis completed (09/16/2019). I have refilled your medications please take them as prescribed. Keep a blood pressure log and take your blood pressure 3 times a day. Eat a low-sodium diet. Do not miss any dialysis treatments. Please follow-up with Dr. Navarro and your primary care doctor. Return to the emergency room immediately for any new or worsening symptoms. Prescriptions: Insulin NPH Hum/Reg Insulin Hm [HumuLIN 70-30 Vial] 30 unit SQ QHS #1 vial hydrALAZINE [Apresoline TAB] 100 mg PO TID #90 tab AtorvaSTATin 40 mg PO DAILY #30 Losartan [Cozaar] 100 mg PO QDAY #30 Minoxidil [Loniten] 10 mg PO DAILY #30 Referrals: NATHANAEL PAREDES MD [Primary Care Provider] - 2-3 Days DARÍO NAVARRO MD [Staff Physician] - 2-3 Days Time of Disposition: 18:44 Print Language: OCCITAN
[2019-09-15] MEDS ORDERED: amLODIPine 5 MG TAB PO ONE (17:42)
[2019-09-15 18:37] VITALS: BP 166/75
== END 2019-09-15 20:00 | disposition home or self-care (01) ==
LOC: ED 13:17
DX: I16.0 Hypertensive urgency (principal); I10 Essential (primary) hypertension; E11.9 Type 2 diabetes mellitus without complications; N28.9 Disorder of kidney and ureter, unspecified; F17.200 Nicotine dependence, unspecified, uncomplicated; Z79.899 Other long term (current) drug therapy
CPT/HCPCS: 36415; 71046; 80053; 80061; 82805; 82962; 83735; 84100; 84484; 85025; 96374; 96375; 96376; 99284; J0360; J1815

== ENCOUNTER 2019-10-14 07:03 | Day surgery (SDC) | payer MEDICARE ==
[2019-10-14 07:59] LABS: INR 0.93 (0.87-1.13)
[2019-10-14 08:00] LABS: Partial Thromboplastin Time 30.3 Sec. (24.2-36.6)
[2019-10-14] MEDS ORDERED: ALBUMIN HUMAN 25% (25 GM/100 ML) INJ IV PRN (09:08)
--- NOTE | 2019-10-14 09:10 | Procedure Note ---
Date of procedure: 10/14/19 Pre-op diagnosis: Ascites Post-op diagnosis: same Procedure: Ultrasound guided paracentesis. Findings: See report in PACS. Anesthesia: local Surgeon: GLENDA GRAY Estimated blood loss: none Pathology: none Specimen disposition: discarded Condition: stable Disposition: other (outpatient, d/c)
--- NOTE | 2019-10-14 10:23 | Ultrasound Report ---
Ultrasound-guided paracentesis HISTORY: Ascites. PROCEDURE: The risks (including but not limited to bleeding, infection, and bowel injury) and benefi ts were explained to the patient and informed consent was obtained. A time out procedure was perform ed. Ultrasound was used to evaluate the abdomen and locate the largest ascites fluid pocket. Once the sk in was marked, the procedure site was prepped and draped in the usual sterile fashion and lidocaine w as used for local anesthesia. A skin mynor was made and a 6-Fijian paracentesis catheter was placed. The patient was monitored closely throughout the procedure, and a total of 10,000 mL of straw-colore d fluid was aspirated. The patient tolerated the procedure well with no complications. IMPRESSION: Successful paracentesis as above with a total of 10,000 mL of straw-colored fluid aspirat ed. Signer Name: Dominic Perdue MD Signed: 10/14/2019 10:19 AM Workstation Name: [id number]
[2019-10-14 10:48] VITALS: BP 194/82
== END 2019-10-14 11:00 | disposition home or self-care (01) ==
LOC: CATHLABREC 07:03 → EDSTATUS 07:30 → CATHLABREC 11:00
PROVIDERS: ATTEND Internal Medicine Nephrology
DX: R18.8 Other ascites (principal); I12.0 Hypertensive chronic kidney disease with stage 5 chronic kidney disease or end stage renal disease; E10.22 Type 1 diabetes mellitus with diabetic chronic kidney disease; N18.6 End stage renal disease; E78.5 Hyperlipidemia, unspecified; E10.69 Type 1 diabetes mellitus with other specified complication; E78.00 Pure hypercholesterolemia, unspecified; J43.9 Emphysema, unspecified; D64.9 Anemia, unspecified; Z99.2 Dependence on renal dialysis; F17.210 Nicotine dependence, cigarettes, uncomplicated; Z98.890 Other specified postprocedural states; Z79.4 Long term (current) use of insulin; Z79.899 Other long term (current) drug therapy
CPT/HCPCS: 36415; 49083; 85610; 85730

== ENCOUNTER 2019-12-02 07:29 | Day surgery (SDC) | payer MEDICARE ==
--- NOTE | 2019-12-02 10:09 | Short Stay Summary ---
Short Stay Documentation Date of service: 12/02/19 - History Principal diagnosis: ascites Past Medical History: liver disease, renal failure - Allergies and Medications Current Medications: Allergies No Known Allergies Allergy (Verified 04/12/19 17:10) Home Medications Medication Instructions Recorded Confirmed Last Taken Type Insulin NPH Hum/Reg Insulin Hm 30 unit SQ QHS #1 vial 09/15/19 10/14/19 10/13/19 Rx [HumuLIN 70-30 Vial] 30 units Losartan [Cozaar] 100 mg PO QDAY #30 09/15/19 10/14/19 10/13/19 Rx hydrALAZINE [Apresoline TAB] 100 mg PO TID #90 tab 09/15/19 10/14/19 10/13/19 Rx 100 mg minoxidiL [Loniten] 10 mg PO DAILY #30 09/15/19 10/14/19 10/13/19 Rx 10 mg Pantoprazole [Protonix TAB] 40 mg PO QDAY #30 tablet 11/12/19 Unknown Rx - Physical exam General appearance: no acute distress Gastrointestinal: distended - Brief post op/procedure progress note Date of procedure: 12/02/19 Pre-op diagnosis: ascites Post-op diagnosis: same Procedure: US paracentesis Anesthesia: local Findings: moderate ascites Surgeon: ANDREZ NAPIER Estimated blood loss: none Pathology: none Specimen disposition: discarded Condition: stable - Hospital course Hospital course: uneventful - Disposition Condition at discharge: Good Disposition: [id number] TO HOME OR SELFCARE Short Stay Discharge Plan Follow up with: NATHANAEL PAREDES MD [Primary Care Provider] - 7 Days
[2019-12-02] MEDS ORDERED: ALBUMIN HUMAN 25% (25 GM/100 ML) INJ IV PRN (11:00)
[2019-12-02 11:29] VITALS: BP 189/77
--- NOTE | 2019-12-02 12:00 | Ultrasound Report ---
ULTRASOUND-GUIDED PARACENTESIS HISTORY: Ascities. PROCEDURE: The risks (including but not limited to bleeding, infection, and bowel injury) and benefi ts were explained to the patient and informed consent was obtained. A time out procedure was perform ed. Ultrasound was used to evaluate the abdomen and locate the largest ascites fluid pocket. Once the sk in was marked, the procedure site was prepped and draped in the usual sterile fashion and lidocaine w as used for local anesthesia. A skin mynor was made and a 5 [place] centesis catheter was placed. The patient was monitored closely throughout the procedure, and a total of 8900 mL of clear yellow fluid was aspirated. No labs were ordered. The patient tolerated the procedure well with no complications. IMPRESSION: Successful ultrasound-guided paracentesis as described. Signer Name: Bart Calvo Jr, MD Signed: 12/02/2019 11:56 AM Workstation Name: [id number]
== END 2019-12-02 12:10 | disposition home or self-care (01) ==
LOC: CATHLABREC 07:29 → EDSTATUS 07:30 → CATHLABREC 12:10
PROVIDERS: ATTEND Internal Medicine Nephrology
DX: R18.8 Other ascites (principal); I12.0 Hypertensive chronic kidney disease with stage 5 chronic kidney disease or end stage renal disease; E10.22 Type 1 diabetes mellitus with diabetic chronic kidney disease; N18.6 End stage renal disease; E10.69 Type 1 diabetes mellitus with other specified complication; E78.5 Hyperlipidemia, unspecified; J43.9 Emphysema, unspecified; F17.210 Nicotine dependence, cigarettes, uncomplicated; D64.9 Anemia, unspecified; Z79.899 Other long term (current) drug therapy; Z79.4 Long term (current) use of insulin; Z99.2 Dependence on renal dialysis; Z98.890 Other specified postprocedural states
CPT/HCPCS: 49083